=== PATIENT | female | born 1965 | race Caucasian/White ===

== ENCOUNTER 2018-05-10 17:39 | Inpatient (IN) ==
[2018-05-10] MEDS ORDERED: Naloxone 0.4 MG/ML INJ IVP PRN (20:16)
--- NOTE | 2018-05-10 20:40 | Internal Med History&Physical ---
<Delon Paul Marlonkristamyah - Last Filed: 05/10/18 20:32> Date of Encounter: 05/10/18 Time of Encounter: 20:32 Internal Medicine - H&P: HPI Chief complaint: abdominal pain Admitted From: Home Plans for Post Hospital Care: Home History of present illness: Ms. Warren is a 52 year old female presents with cc of abdominal pain/ bloating since January that is progressively worsening. Says in october she weighed 230 pounds and changed her diet to loose weight (she ate more fruit, vegetables and gave up fatty meals/oil). She started loosing weight but in January she started having bloating, abdominal pain and intermittent watery diarrhea with constipation. She now weights 180 pounds. She reports her stool are black. She denies fever, chills, rash, sick contacts, travel. She has a pet dog that is vaccinated. She denies hx of cancer. She has had a complete hysterectomy in 2000. She recently had a EGD done in march 2018 which showed evidence of gastritis. A colonoscopy was also planned but canceled due to poor prep. Patient had another colonoscopy planned for April. Past Med Surg Social Fam HX - Past Medical History Medical history: other (Chronic pelvic pain, chronic low back pain, endometriosis) Additional medical history: pelvic pain, lower back pain with lower limb dysesthesias, endometriosis, adenomyosis Psychiatric history: anxiety, depression - Past Surgical History Surgical History: hysterectomy Additional surgical history: Tubal ligation - Social History Smoking Status: Current every day smoker Smokeless Tobacco Status: No Alcohol use: none Drug use: none Current living situation: Home - Independent Activity Level: Independent ambulation - Family History Brother Hx Family Cancer: Yes (prostate) Sister Hx Family Endocrine Disorder: Yes (DM2) Internal Medicine - H&P: Meds BuPROPion SR (12 HR) [Wellbutrin SR] 150 mg PO BID 12/21/15 [History] Gabapentin [Gralise] 300 mg PO TID 09/07/17 [History] Oxycodone HCl [Oxycodone HCl ER] 15 mg PO BID 09/07/17 [History] Esomeprazole Magnesium [Nexium] 20 mg PO DAILY 05/10/18 [History] 3 Allergy/AdvReac Type Severity Reaction Status Date / Time steroid shot Allergy See Uncoded 05/10/18 15:54 Comments All Systems PM: A 10-system review of systems was performed and is negative for pertinent findings except as documented above in the HPI. Review of systems: Constitutional: Denies fever, chills HEENT: Denies headache, trauma, blurry vision, eye discharge, ear pain, ear discharge neck pain, sore throat, rhinorrhea Heart: Denies chest pain palpitations, LE edema Lungs: Denies shortness of breath cough Abdomen: Reports abdominal pain nausea vomiting diarrhea, constipation, black stool MSK: Denies back pain, falls, joint pain Kidney: Denies dysuria, hematuria Skin: Denies rash, ulcers, rash Neuro: Denies numbness and tingling Psych: Reports anxiety, Denies depression - Constitutional Vitals: Temp Pulse Resp BP Pulse Ox 98.1 F 96 15 123/88 97 05/10/18 19:15 05/10/18 19:15 05/10/18 19:15 05/10/18 19:15 05/10/18 19:15 Exam: General: pleasant, without distress HEENT: Head atraumatic, normocephalic, EOMI, PERRL, absent ear discharge or trauma, Moist Mucous Membranes, uvula midline Neck: nontender to palpation, absent lymphadenopathy, Cardiovascualr: Regular rate and rhythm with no murmur, absent gallops or rubs, absent pedal edema, radial pulses 2 out of 4 Lungs: Clear to auscultation bilaterally, not in respiratory distress Abdomen: Soft distendend, non tender to palpation. tenderness to precussion on LLL. +BS, Skin: warm and dry, absent rash, absent open wounds and nodules MSK: absent clubbing, cyanosis, joints without swelling Neuro: Cranial nerves II through XII intact, UE and LE sensation equal bilaterally, UE and LEstrength 5/5, alert oriented 3, Psych: good insight and judgment - Assessment and plan (1) Enteritis Current Visit: Yes Status: Acute Assessment and plan: Patient presents with abdominal pain and bloating since january Ct abdomen/pelvis: Diffuse bowel dilation and inflammatory changes However, the there is bowel anterior to the transverse colon and findings could be due to an internal hernia, ascites She is having intermittent diarrhea/consitpation black stool hgb 16, wbc 12.1 afebrile reports weight loss amylase lipase negative ast,ALT WNL plan: etiology can be infections, inflammatory, malignancy. GI consulted as patient will need colonoscopy for further evaluation. CEA ordered. Clear liquid diet. (2) Pleural effusion Current Visit: Yes Status: Acute Assessment and plan: as noted on CT scan left pleural effusion will need diagnostic thoracentesis consult IR. pleural fluid lab ordered. (3) Anxiety and depression Current Visit: Yes Status: Acute Assessment and plan: controlled continue home medication (4) DVT prophylaxis Current Visit: Yes Status: Acute Assessment and plan: heparin SQ - Time Spent With Patient Total time spent is greater than 50% in coordination of care (as documented) at patient's floor/unit and/or counseling patient: <HaydenMohit - Last Filed: 05/10/18 21:07> Date of Encounter: 05/10/18 Internal Medicine - H&P: HPI History of present illness: Ms. Warren is a 52 year old female All Systems PM: A 10-system review of systems was performed and is negative for pertinent findings except as documented above in the HPI. - Constitutional Vitals: Temp Pulse Resp BP Pulse Ox 98.1 F 96 15 123/88 97 05/10/18 19:15 05/10/18 19:15 05/10/18 19:15 05/10/18 19:15 05/10/18 19:15 - Assessment and plan (1) Pleural effusion Current Visit: Yes Status: Acute (2) Enteritis Current Visit: Yes Status: Acute (3) Anxiety and depression Current Visit: Yes Status: Acute (4) DVT prophylaxis Current Visit: Yes Status: Acute - Time Spent With Patient Total time spent is greater than 50% in coordination of care (as documented) at patient's floor/unit and/or counseling patient: - Attending Attestation Sangeetha Warren is a 52 year old woman who has otherwise been medically healthy stating that since January 2018 she has developed increasing abdominal distension, bloating, fatigue, anorexia, asthenia and weight loss. She also reports episodes of constipation intercalated with diarrhea, noticing the watery depositions to be almost black in color. She denies fever and chills. There was an attempted colonoscopy in the past but unsuccessful quality due to poor prep and she had an endoscopy with no significant findings. She is scheduled for another colonoscopy in 1 week. She presents now on transfer from outside hospital due to persistence and progression of the symptoms. Over there and IV contrast alone CT scan was done which showed a left pleural effusion and diffuse bowel dilation with inflammatory changes of unclear etiology and a possible internal hernia. On exam her vital signs are within normal limits however she is notably asthenic with pale skin and mucous membranes; diminished breath sounds in the left base with no rales or rhonchi; abdomen distended with shifting dullness, dullness to percussion on the lateral sides and tympanic on top, soft to palpation with no peritoneal reaction or masses palpated; unable to appreciate cervical, supraclavicular or inguinal lymphadenopathy. No leg edema. Given the chronicity of her symptoms this appears to be less infectious and more of an inflammatory (IBD) or possible malignant (colon cancer) process. She reports a long-standing history of smoking however there is no immediate family member history of cancer; her mother states that her own sister has breast cancer. Advise to have a diagnostic and therapeutic thoracentesis by IR with fluid studies sent for cytology, culture, cell count, pH, protein, glucose and pathology. We should consult GI for a colonoscopy as this would be the best diagnostic tool. No indication for antimicrobials at this time. In the interim we will check stool for occult blood and attempt to visualize microscopically if she has movement however for now she at appears to be more constipated than diarrheal. Also noted hemoconcentrated with a hemoglobin of 16 and hyponatremic at 132 and hypochloremic at 96; has received 1 L of NS however we will defer further fluid resuscitation due to the presence of ascites and pleural effusion. We will recheck lytes in the morning and supplement if needed. Rest of plan as documented by Dr. Paul.
[2018-05-10] MEDS: Gabapentin 300 MG CAPSULE PO SCH (22:27)
[2018-05-10] MEDS: *HR* Heparin 5,000 UNIT/ML VIAL SQ SCH (22:27)
[2018-05-10] MEDS: diazePAM 5 MG TABLET PO SCH (22:28)
[2018-05-10] MEDS: OXYCODONE Oral CONC 10 MG/0.5 ML ORAL.SYG SL PRN (22:28)
[2018-05-11 03:50] LABS: Basophils # 0.1 K/mcL (0.0-0.2); Basophils % 0.6 %; Eosinophils # 0.2 K/mcL (0.0-0.6); Eosinophils % 1.8 %; Hematocrit 42.8 % (35.3-44.9); Hemoglobin 14.8 g/dL (11.5-15.4); Immature Granulocytes % 1.5 % (0-4); Immature Platelets 7.6 % (1.1-6.1); Lymphocytes # 2.7 K/mcL (0.6-4.6); Lymphocytes % 31.8 %; Mean Corpuscular HGB Conc 34.6 g/dL (31.6-35.5); Mean Corpuscular Hemoglobin 29.9 pg (28.0-33.3); Mean Corpuscular Volume 86.5 fL (83.0-100.0); Mean Platelet Volume 10.8 fL (9.4-12.4); Monocytes # 1.1 K/mcL (0.0-1.3); Monocytes % 12.4 %; Neutrophils # 4.4 K/mcL (1.6-8.9); Platelet Count 278 K/mcL (140-400); Red Blood Count 4.95 M/mcL (3.82-4.97); Segmented Neutrophils % 51.9 %
[2018-05-11 04:12] LABS: BUN/Creatinine Ratio 19 (6-26); Blood Urea Nitrogen 13 mg/dL (6-20); Calcium 8.6 mg/dL (8.6-10.3); Carbon Dioxide 26 mEq/L (23-29); Chloride 100 mEq/L (98-107); Glucose 94 mg/dL (70-105); Lactate Dehydrogenase 126 Units/L (140-271); Osmolality,Calculated 278 (280-300); Potassium 3.2 mEq/L (3.5-5.1); Sodium 134 mEq/L (136-145); eGFR For Non-African Americans > 60 (> 60)
[2018-05-11] MEDS: *HR* Heparin 5,000 UNIT/ML VIAL SQ SCH ×3 (05:00→22:06)
[2018-05-11] MEDS: Gabapentin 300 MG CAPSULE PO SCH ×2 (08:30→15:04)
[2018-05-11] MEDS: diazePAM 5 MG TABLET PO SCH ×2 (08:30→15:04)
[2018-05-11] MEDS: OXYCODONE Oral CONC 10 MG/0.5 ML ORAL.SYG SL PRN ×3 (08:44→22:56)
--- NOTE | 2018-05-11 10:29 | IR Procedure Note ---
Date of procedure: 05/11/18 Consent Obtained: Written consent Timeout: Correct patient and procedure verified, Correct site verified, Time out performed, Skin prep completed Local anesthetic: Lidocaine 1% Indications: Left pleural effusion, abdominal pain. Procedure Performed: Left thoracentesis Was there an health information assistant present: No Site/Technique: Left sided thoracentesis. 8fr cath used. Results/Findings: Straw colored fluid. Still draining. Estimated blood loss (cc): 0 Complications: None; Tolerated procedure well Post Procedure Treatment Plan: Monitoring in pts room. Specimen: To lab
[2018-05-11 12:12] LABS: RBC,Pleural Fluid 0.005 M/mcL
[2018-05-11 12:30] LABS: Appearance of Pleural Fl Hazy (Clear)
[2018-05-11 12:46] LABS: Total Protein,Pleural Fluid 3.8 g/dL (No Ref Range)
[2018-05-11 13:49] LABS: Albumin 3.3 g/dL (3.5-5.7)
[2018-05-11] MEDS ORDERED: GI Cocktail 40 ML EACH PO ONE (14:17)
--- NOTE | 2018-05-11 14:18 | Internal Med Progress Note ---
<DavidAlfonso Silvestre - Last Filed: 05/11/18 17:39> Hospitalist Progress Note - Encounter Date of Encounter: 05/11/18 - Exam Vitals: Temp Pulse Resp BP Pulse Ox 98.2 F 93 16 107/73 95 05/11/18 14:57 05/11/18 14:57 05/11/18 14:57 05/11/18 14:57 05/11/18 14:57 - Assessment and Plan (1) C. difficile colitis Current Visit: Yes Status: Acute (2) Pleural effusion Current Visit: Yes Status: Acute (3) Enteritis Current Visit: Yes Status: Acute (4) Anxiety and depression Current Visit: Yes Status: Chronic (5) DVT prophylaxis Current Visit: Yes Status: Acute (6) Hypokalemia Current Visit: Yes Status: Acute Assessment and Plan: New today. Replace (7) Tobacco abuse Current Visit: Yes Status: Chronic Assessment and Plan: Cessation counselling - Time Spent with Patient Total time spent is greater than 50% in coordination of care (as documented) at patient's floor/unit and/or counseling patient: Internal Medicine: Result - Labs CBC & Chem 7: 05/11/18 03:41 05/11/18 03:41 Labs: Short CBC 05/11/18 Range/Units 03:41 WBC 8.6 (4.3-11.1) K/mcL Hgb 14.8 (11.5-15.4) g/dL Hct 42.8 (35.3-44.9) % Plt Count 278 (140-400) K/mcL Neutrophils # 4.4 (1.6-8.9) K/mcL BMP 05/11/18 03:41 Sodium 134 L Potassium 3.2 L Chloride 100 Carbon Dioxide 26 BUN 13 Creatinine 0.68 Glucose 94 Calcium 8.6 Liver Function 05/11/18 Range/Units 03:41 Albumin 3.3 L (3.5-5.7) g/dL - Impressions Impressions Thoracentesis 05/11/18 09:44 IMPRESSION: Successful ultrasound guided thoracentesis. D/ / Sean Joshi MD / Sean Joshi MD Interpreting Provider: Sean Joshi MD Chest X-Ray 05/11/18 10:27 IMPRESSION: No pneumothorax following thoracentesis. D/ / Jose Bhardwaj MD / Jose Bhardwaj MD Interpreting Provider: Jose Bhardwaj MD Consult Discharge Plan - Plan Referrals: Shae Russell, P[employer] MANAGER [Primary Care Provider] - - Attending Attestation I examined this patient and my medical decision-making was reviewed with the Resident Physician on 05/11/18. I agree with the documented findings, disposition and treatment plan as described except to the extent set forth below. Ms Warren is currently in observation for abdominal pain. She is positive for C diff. She is going to OR today. She remains moderate to high risk. Ms Warren is doing OK. She is to go to OR today. No fever or chills. C diff positive. Exam alert Comfortable Mucus membranes dry Heart not tachy Lungs diminished Abd no peritoneal signs I/P 1. C diff colitis 2. Abd pain Further diagnoses and plan as above. <Nicholas Edwards - Last Filed: 05/11/18 19:19> Hospitalist Progress Note - Encounter Date of Encounter: 05/11/18 Time of Encounter: 09:30 - Subjective Interval History: Ms. Warren is a 52-year-old female who was admitted to the hospital floor due to abdominal pain that has been going on for the last 2 months. Patient has been deliberately trying to lose weight since August and has lost close to 50 pounds in the last 7 months. Early in the January she was having early satiety, abdominal pain with distention but lately it has been multiple episodes of loose stools. Reports no systemic signs like fever, chills, chest pain or shortness of breath. Patient's GI panel was positive for C Diff . Her CT abdomen/pelvis showed diffuse bowel wall thickening, congestion of the mesentery , lots of free fluid and concerns for internal hernia. Patient is currently in the OR undergoing Exploratory Laparotomy. - Exam Vitals: Temp Pulse Resp BP Pulse Ox 98.1 F 94 14 106/75 97 05/11/18 10:30 05/11/18 10:30 05/11/18 10:30 05/11/18 10:30 05/11/18 10:30 Exam: General: pleasant, without distress HEENT: Head atraumatic, normocephalic, EOMI, PERRL, absent ear discharge or trauma, Moist Mucous Membranes, uvula midline Neck: nontender to palpation, absent lymphadenopathy, Cardiovascualr: Regular rate and rhythm with no murmur, absent gallops or rubs, absent pedal edema, radial pulses 2 out of 4 Lungs: Clear to auscultation bilaterally, not in respiratory distress Abdomen: Soft distendend, guarding or rebound tenderness. +BS, Skin: warm and dry, absent rash, absent open wounds and nodules MSK: absent clubbing, cyanosis, joints without swelling Neuro: Cranial nerves II through XII intact, UE and LE sensation equal bilaterally, UE and LEstrength 5/5, alert oriented 3, Psych: good insight and judgment - Assessment and Plan (1) Enteritis Current Visit: Yes Status: Acute Assessment and Plan: - Likely due to Clostridium difficile - on physical exam patient was distended, however no guarding or rebound tenderness. patients GI workup was negative for lipase and amyalse. Her LFTs were WNL. -Continue supportive care (2) Abdominal pain Current Visit: Yes Status: Acute Assessment and Plan: - Likely due to combination of enteritis and internal hernia found on CT scan. Patient's CEA being elevated one cannot rule out possibility of malignancy. Patient denies any recent camping or eating contaminated food. -NPO, IVF, plan is to take the patietn for Ex laporotomy - Continue to monitor. (3) Pleural effusion Current Visit: Yes Status: Acute Assessment and Plan: -likely due to malignancy, patient had an elevated CEA. M -Patient CT chest was positive for small residual pleural effusion on the left side. -She is status post thoracentesis. The pleural fluid is found to be exudative in nature. - Continue to monitor (4) Anxiety and depression Current Visit: Yes Status: Chronic Assessment and Plan: - Patient has a history of anxiety and depression. -Continue home medications. DVT Prophylaxis: heparin SQ - Time Spent with Patient Total time spent is greater than 50% in coordination of care (as documented) at patient's floor/unit and/or counseling patient: Internal Medicine: Result - Labs CBC & Chem 7: 05/11/18 03:41 05/11/18 03:41 Labs: Short CBC 05/11/18 Range/Units 03:41 WBC 8.6 (4.3-11.1) K/mcL Hgb 14.8 (11.5-15.4) g/dL Hct 42.8 (35.3-44.9) % Plt Count 278 (140-400) K/mcL Neutrophils # 4.4 (1.6-8.9) K/mcL BMP 05/11/18 03:41 Sodium 134 L Potassium 3.2 L Chloride 100 Carbon Dioxide 26 BUN 13 Creatinine 0.68 Glucose 94 Calcium 8.6 Liver Function 05/11/18 Range/Units 03:41 Albumin 3.3 L (3.5-5.7) g/dL - Impressions Impressions Thoracentesis 05/11/18 09:44 IMPRESSION: Successful ultrasound guided thoracentesis. D/ / Sean Joshi MD / Sean Joshi MD Interpreting Provider: Sean Joshi MD Chest X-Ray 05/11/18 10:27 IMPRESSION: No pneumothorax following thoracentesis. D/ / Jose Bhardwaj MD / Jose Bahrdwaj MD Interpreting Provider: Jose Bhardwaj MD <Nicholas Edwards - Last Filed: 05/11/18 19:19> (2) Abdominal pain Qualifiers: Abdominal location: generalized Qualified Code(s): R10.84 - Generalized abdominal pain
[2018-05-11 14:47] LABS: Adenovirus F 40/41 PCR Not detected (Not detect); Astrovirus PCR Not detected (Not detect); C.difficile Toxin A/B by PCR See reflex test (Not detect); Campylobacter by PCR Not detected (Not detect); Cryptosporidium by PCR Not detected (Not detect); Cyclospora cayetanensis PCR Not detected (Not detect); E. coli O157 by PCR Not detected (Not detect); Entamoeba histolytica PCR Not detected (Not detect); Enteroaggregative E.coli(EAEC) Not detected (Not detect); Enteropathogenic E.coli(EPEC) Not detected (Not detect); Enterotoxigenic E.coli (ETEC) Not detected (Not detect); Giardia lamblia PCR Not detected (Not detect); Norovirus GI/GII PCR Not detected (Not detect); Plesiomonas shigelloides PCR Not detected (Not detect); Rotavirus A PCR Not detected (Not detect); Salmonella PCR Not detected (Not detect); Sapovirus PCR Not detected (Not detect); Shig/EnteroinvasiveE coli EIEC Not detected (Not detect); Shigalike tox-prod E coli STEC Not detected (Not detect); Vibrio PCR Not detected (Not detect); Vibrio cholerae PCR Not detected (Not detect); Yersinia enterocolitica PCR Not detected (Not detect)
--- NOTE | 2018-05-11 15:20 | Anesthesia Evaluation PreOp ---
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: Other (ANXIETY, DEPRESSION, CHRONIC BACK PAIN, OPIOID TOLERANT) Other Medical History: GERD (GASTRITIS), Other (UNINTENDED 50 LB WEIGHT LOSS, BLOATING, , CHRONIC PELVIC PAIN, ENDOMETRIOSIS, HYPOKALEMIA) Anesthesia History: No Prior Anesthetic Complications, Past Anesthesia (HYST, BTL) Alcohol Use: none Drug use: none Medications and Allergies BuPROPion SR (12 HR) [Wellbutrin SR] 150 mg PO BID 12/21/15 [History] Esomeprazole Magnesium [Nexium] 20 mg PO DAILY 05/10/18 [History] Acetaminophen/Butalbital/Caffe [Fioricet] 1 tab PO TID PRN 05/11/18 [History] Gabapentin [Neurontin] 600 mg PO TID 05/11/18 [History] OxyCODONE Immed Rel [Roxicodone 15 MG] 15 mg PO Q8HR 05/11/18 [History] Quetiapine Fumarate [Seroquel] 50 mg PO HS 05/11/18 [History] Sucralfate [Carafate] 1 g PO BID 05/11/18 [History] diazePAM [Valium] 5 mg PO TID 05/11/18 [History] 3 Allergy/AdvReac Type Severity Reaction Status Date / Time steroid shot Allergy See Uncoded 05/10/18 15:54 Comments - Meds/Allergy Pre-op Review Medications Reviewed: Yes Allergies Reviewed: Yes Anesthesia Results - Labs 05/11/18 03:41 05/11/18 03:41 Calcium 8.6 mg/dL (8.6-10.3) 05/11/18 03:41 Magnesium 2.0 mg/dL (1.6-2.6) 05/11/18 03:41 Albumin 3.3 g/dL (3.5-5.7) L 05/11/18 03:41 Anesthesia Exam Vital Signs/O2 Sat, Most Current Temp Pulse Resp BP Pulse Ox 98.2 F 93 16 107/73 95 05/11/18 14:57 05/11/18 14:57 05/11/18 14:57 05/11/18 14:57 05/11/18 14:57 Height: 1.7 m Weight: 84 kg... BMI 29 NPO (# of Hours): 8 - HEENT Mallampati: II Teeth: Missing, Poor dentition Oral Opening: Greater than 3 - Cardiac Rhythm: Regular - Pulmonary Breath Sounds: bilateral Clear Respiratory Effort: Symmetrical Anesthesia Assess/Plan ASA Score: 4 Modified Denver Scale for Level of Consciousness: Cooperative, oriented, and tranquil Anesthetic Plan: General, Regional (TAP BLOCK FOR POST OPERATIVE PAIN) Monitoring Plan: Standard Monitors Recovery Plan: PACU Anes Supervising Prov Stmt: Active Medications Diazepam (Valium) 5 mg PO TID [facility] Stop: 11/09/18 21:01 Last Admin: 05/11/18 15:04 Dose: 5 mg Gabapentin (Neurontin) 600 mg PO TID [facility] Stop: 11/09/18 21:01 Last Admin: 05/11/18 15:04 Dose: 600 mg Heparin Sodium (Porcine) (Heparin) 5,000 unit SQ Q8HCO [facility] Stop: 11/09/18 22:01 Last Admin: 05/11/18 15:04 Dose: 5,000 unit Oxycodone HCl (Oxycodone Oral Conc) 5 mg SL Q6HR PRN; Protocol PRN Reason: Pain Stop: 11/09/18 20:24 Last Admin: 05/11/18 15:10 Dose: 5 mg Potassium Chloride (Potassium Chloride) 40 meq PO BID [facility] Stop: 05/12/18 09:01 Last Admin: 05/11/18 08:30 Dose: 40 meq Patient informed and consented. Risks, benefits, and alternatives discussed. Patient wishes to proceed.
[2018-05-11] MEDS ORDERED: *HR* Midazolam HCl 2 MG/2 ML VIAL ONE (15:22)
[2018-05-11] MEDS ORDERED: *HR* Propofol 200 MG/20 ML VIAL IVP ONE (15:22)
[2018-05-11] MEDS ORDERED: *HR* FentaNYL (PF) 100 MCG/2 ML VIAL ONE ×2 (15:22→17:00)
[2018-05-11] MEDS ORDERED: Lidocaine -MPF 4% 5 ML AMPUL ONE (15:22)
[2018-05-11] MEDS ORDERED: Lidocaine -MPF 2% 2 ML VIAL ONE (15:25)
[2018-05-11] MEDS ORDERED: *HR* Succinylcholine 200 MG/10 ML VIAL IVP ONE (15:25)
[2018-05-11] MEDS ORDERED: *HR* Rocuronium Bromide 50 MG/5 ML VIAL ONE ×2 (15:25→17:14)
--- NOTE | 2018-05-11 15:30 | General Surgery Consult Note ---
Date of Encounter: 05/11/18 Time of Encounter: 15:28 Assessment and Plan (1) Abdominal pain Current Visit: Yes Status: Acute 52F with worsening abdominal pain and distension with concern for internal hernia on CT scan; of note her CEA level is mildly elevated NPO IVF abx plan for OR for ex lap discussed with patient who is in agreement Qualifiers: Abdominal location: generalized Qualified Code(s): R10.84 - Generalized abdominal pain History of Present Illness Consult date: 05/11/18 Reason for consult: abdominal pain History of present illness: Ms. Warren is a 52 year old female h/o IBS who presents with a change in bowel habits. She has purposefully (and successfully) attempted to lose weight since August. However, in January she states that she began having early satiety, abdominal pain with distension. per the patient, her distension is worse. She does report having bowel function, but lately it is just loose stools. She states it is not tarry/dark nor frankly bloody. She was scheduled for a colonoscopy wiht me (after her first one was aborted due to inadequate prep), but has come to the hospital due to her worsening symptoms. No reports of fevers, chills, chest pain, nor shortness of breath. A CT scan was obtained which was reviwed and interpreted by me which demonstrates diffuse bowel wall thickening, congestion of the mesentery, lots of free fluid, left sided pleural effusion, and a transition point; The CT was reviewed and interpreted by me with radiology. Past Med Surg Social Fam HX - Past Medical History Medical history: other Additional medical history: pelvic pain, lower back pain with lower limb dysesthesias, endometriosis, adenomyosis Psychiatric history: anxiety, depression - Past Surgical History Surgical History: hysterectomy Additional surgical history: Tubal ligation - Social History Smoking Status: Current every day smoker Packs per day: 1 Smokeless Tobacco Status: No Alcohol use: none Drug use: none - Family History Brother Hx Family Cancer: Yes (prostate) Sister Hx Family Endocrine Disorder: Yes (DM2) Medications and Allergies BuPROPion SR (12 HR) [Wellbutrin SR] 150 mg PO BID 12/21/15 [History] Esomeprazole Magnesium [Nexium] 20 mg PO DAILY 05/10/18 [History] Acetaminophen/Butalbital/Caffe [Fioricet] 1 tab PO TID PRN 05/11/18 [History] Gabapentin [Neurontin] 600 mg PO TID 05/11/18 [History] OxyCODONE Immed Rel [Roxicodone 15 MG] 15 mg PO Q8HR 05/11/18 [History] Quetiapine Fumarate [Seroquel] 50 mg PO HS 05/11/18 [History] Sucralfate [Carafate] 1 g PO BID 05/11/18 [History] diazePAM [Valium] 5 mg PO TID 05/11/18 [History] 3 Allergy/AdvReac Type Severity Reaction Status Date / Time steroid shot Allergy See Uncoded 05/10/18 15:54 Comments Review of Systems All systems PM: 12 point ROS negative besides HPI findings General Surgery Exam Initial Vital Signs Temp Pulse Resp BP Pulse Ox 98.1 F 96 15 123/88 97 05/10/18 19:15 05/10/18 19:15 05/10/18 19:15 05/10/18 19:15 05/10/18 19:15 - General physical appearance no distress - Eyes normal ocular movement - ENT normocephalic, Other (poor dentition) - Neck no lymphadectomy - Respiratory normal expansion, normal respiratory effort - Cardiovascular Cardiovascular exam: Present: RRR - Abdomen Abdomen general surgery: Present: soft, distended, tender - Integumentary Integumentary general surgery: Present: warm and dry - Neurologic Present: CN 2-12 grossly intact - Musculoskeletal Present: normal posture - Psychiatric Psychiatric general surgery: Present: A&Ox3 Exam Initial Vital Signs Temp Pulse Resp BP Pulse Ox 98.1 F 96 15 123/88 97 05/10/18 19:15 05/10/18 19:15 05/10/18 19:15 05/10/18 19:15 05/10/18 19:15 Results - Labs 05/11/18 03:41 05/11/18 03:41 Abnormal lab results Immature Plt Fraction 7.6 % (1.1-6.1) H 05/11/18 03:41 Sodium 134 mEq/L (136-145) L 05/11/18 03:41 Potassium 3.2 mEq/L (3.5-5.1) L 05/11/18 03:41 POC Glucose 108 mg/dL (70-99) H 05/11/18 11:23 Calculated Osmolality 278 (280-300) L 05/11/18 03:41 Lactate Dehydrogenase 126 Units/L (140-271) L 05/11/18 03:41 Albumin 3.3 g/dL (3.5-5.7) L 05/11/18 03:41 Carcinoembryonic Ag 5.5 ng/mL (Less than 5.0) H 05/11/18 03:41 Pleural Appearance Hazy (Clear) A 05/11/18 10:20 Pleural RBC 0.005 M/mcL (0.000-0.002) H 05/11/18 10:20 Pleural Tot Nuc Cell 6416 TNC/mcL (0-1000) H 05/11/18 10:20 Stool Occult Blood Positive (Negative) A 05/11/18 13:10 Stl C. diff Tox A/B PCR See reflex test (Not detect) A 05/11/18 13:10 Diabetes panel 05/11/18 Range/Units 03:41 Sodium 134 L (136-145) mEq/L Potassium 3.2 L (3.5-5.1) mEq/L Chloride 100 (98-107) mEq/L Carbon Dioxide 26 (23-29) mEq/L BUN 13 (6-20) mg/dL Creatinine 0.68 (0.60-1.20) mg/dL Glucose 94 (70-105) mg/dL Calcium 8.6 (8.6-10.3) mg/dL Albumin 3.3 L (3.5-5.7) g/dL Calcium panel 05/11/18 Range/Units 03:41 Calcium 8.6 (8.6-10.3) mg/dL Albumin 3.3 L (3.5-5.7) g/dL Pituitary panel 05/11/18 Range/Units 03:41 Sodium 134 L (136-145) mEq/L Potassium 3.2 L (3.5-5.1) mEq/L Chloride 100 (98-107) mEq/L Carbon Dioxide 26 (23-29) mEq/L BUN 13 (6-20) mg/dL Creatinine 0.68 (0.60-1.20) mg/dL Glucose 94 (70-105) mg/dL Calcium 8.6 (8.6-10.3) mg/dL Adrenal panel 05/11/18 Range/Units 03:41 Sodium 134 L (136-145) mEq/L Potassium 3.2 L (3.5-5.1) mEq/L Chloride 100 (98-107) mEq/L Carbon Dioxide 26 (23-29) mEq/L BUN 13 (6-20) mg/dL Creatinine 0.68 (0.60-1.20) mg/dL Glucose 94 (70-105) mg/dL Calcium 8.6 (8.6-10.3) mg/dL Albumin 3.3 L (3.5-5.7) g/dL All other labs normal. - Imaging CT scan - abdomen: report reviewed, image reviewed CT scan - pelvis: report reviewed, image reviewed Consult Discharge Plan - Plan Referrals: Shae Russell, MIMI [Primary Care Provider] -
[2018-05-11] MEDS ORDERED: MetroNIDAZOLE 500 MG/100 ML 500 MG/100 ML BAG IVPB SCH ×2 (16:00→16:22)
[2018-05-11] MEDS ORDERED: Piperacillin/Tazobactam 3.375 GM in 0.9 % Sodium Chloride Mini Bag 100 ML IVPB SCH (16:00)
[2018-05-11] MEDS ORDERED: *HR* HYDROmorphone 2 MG/ML SYRINGE ONE (16:20)
[2018-05-11] MEDS ORDERED: Ondansetron 4 MG/2 ML VIAL ONE (17:09)
[2018-05-11] MEDS ORDERED: Dexamethasone 4 MG/ML VIAL ONE (17:09)
[2018-05-11] MEDS ORDERED: Acetaminophen IV 1,000 MG/100 ML INFUS..BTL IVPB ONE (17:39)
[2018-05-11] MEDS ORDERED: Albuterol 2.5 MG/3 ML NEBULIZER IH ONE ×2 (17:39→22:45)
[2018-05-11] MEDS ORDERED: *HR* Labetalol 20 MG/4 ML SYRINGE IVP PRN (17:39)
[2018-05-11] MEDS ORDERED: *HR* Promethazine 25 MG/ML VIAL IVP PRN (17:39)
[2018-05-11] MEDS ORDERED: ROPIVACAINE HCL/PF 0.5% 30 ML VIAL ONE (18:05)
[2018-05-11] MEDS ORDERED: Water for inj (bacteriostatic) 30 ML VIAL IV ONE (18:05)
[2018-05-11] MEDS ORDERED: Ketorolac 30 MG/ML VIAL ONE (18:06)
[2018-05-11] MEDS ORDERED: Neostigmine Methylsulfate 3 MG/3 ML SYRINGE ONE (18:06)
[2018-05-11] MEDS ORDERED: *HR* Morphine 10 MG/ML VIAL ONE (19:04)
--- NOTE | 2018-05-11 19:23 | Anesthesia Procedures ---
Date of Encounter: 05/11/18 Time of Encounter: 18:30 Procedures: Anesthesia - Nerve Block Procedure Date: 05/11/18 Time: 18:30 (IN OR, AT END OF SURGERY, BEFORE EMERGENCE) Surgical Procedure: EXP LAPAROTOMY Checklist: Correct Patient Identifier, Correct procedure Monitor Applied: EKG, BP, Pulse Oximetry Indication: Post Op Analgesia Block Type: Other (JOHNNIE TAP BLOCK) Sterile Technique: Yes Ultrasound used: Yes Anatomy identified: Yes Visual spread of Local: Yes Smooth Injection of Local: Yes Prep: Chlorhexadine Needle: 21 x 100 mm Stimuplex Local: Ropivacaine (0.25%) Volume (cc): 60 ML TOTAL Complications: None/effective block Comments: DIFFICULT NEEDLE VISUALIZATION ON THE LEFT SIDE. STIMUPLEX NEEDLE CHANGED TO PAJUNK, WITH BETTER VISUALIZATION. INCREMENTAL ASPIRATION AND INJECTION. I PERSONALLY PERFORMED THE PROCEDURE.
--- NOTE | 2018-05-11 20:25 | Anesthesia Evaluation Post Op ---
Date of Encounter: 05/11/18 Time of Encounter: 20:25 - Vital Signs Vital Signs: Vital Signs/O2 Sat, Most Current Temp Pulse Resp BP Pulse Ox 98 F 76 14 136/97 92 05/11/18 20:01 05/11/18 20:01 05/11/18 20:01 05/11/18 20:01 05/11/18 20:01 - Lungs Lungs: Clear Ascult./Percussion - Airway Airway: Non-obstructed - Cardiovascular Regular Rate - Mental Status Mental Status: Alert & Oriented, Answers Appropriately - Pain Pain Scale: 0 Pain Scale used: Numeric (1 - 10) - Nausea Vomiting Nausea Vomiting: Not Present - Hydration Hydration: NPO, Schroeder catheter - Discharge PostOp Status: Transfer Patient to floor
--- NOTE | 2018-05-11 21:02 | Operative Note ---
Date of procedure: 05/11/18 Pre-op diagnosis: small bowel obstruction Post-op diagnosis: same Procedure: exploratory laparotomy excisional biopsy of peritoneal wall lesion diverting loop ileostomy Implants: none Complications: none Anesthesia: GETA Local Anesthetics: 0.5% Sensorcaine HCL SubQ (cc) Surgeon: Matthew Jordan Was there an assistant professor of english present: Yes Anode Worker: Janell Johnson Estimated blood loss (cc): 75 Specimen: peritoneal lesions Condition: stable Disposition: PACU Procedure in Detail: the patient was brought into the operating room suite. Placed in the supine position. Mechanical DVT prophylaxis was placed. She underwent smooth induction of anesthesia. Prepped and draped in the usual fashion. Preoperative antibiotics were given. A time out was held identifying correct patient, pathology, procedure, and physician. I started with a midline incision. Upon entering the abdomen I encountered the efflux of serous/ascitic fluid. This was suctioned. As I entered the abdomen I did create a small injury in the small bowel, which I repaired with a Lembert suture. As I was preparing to place the bookwalter retractor, I noticed that the side wall wall felt unusual. I palpated the peritoneal surface along the Right side and noted that there were extensive lesions all along the right side. I noticed the same lesion along the left side of the abdominal wall along the peritoneal surface. I then noticed lesions along the liver too. I then took several biopsies of these right sided lesions using the debakey and the 15 blade lesion for excision. I ran the bowel beginning at the ligament of treitz. At the first pass, I noticed a lesion along the distal transverse colon that extended to the spleen. I did not attempt resection because it was stuck to the surrounding structures. In addition rest of the transverse colon was difficult to bring up for a colostomy as it appeared that the mesentery was shortened. At second pass I noticed that the majority of the bowel had small deposits of what appeared to be metastasis. The same was also in the mesentery. There were too many lesions to count. All along the colon antimesenteric surface as well along the descending colon to the rectum. I went back towards the ascending colon and noted a large lesion at the cecum that was the size of a tangerine. This was also difficult to mobilize. It was at this time that the decision was made to not plan for a resection. I decided to start at the cecum and selected a segment of small bowel that was most mobile and distal. I created a small circular incision along the right side of the abdomen, dissected down the fascia, created an incision, spared the muscle and made a second incision through the posterior fascia. I was able to slide two fingers through and, using the mimi instrument was able to pass the segment of bowel selected for the ostomy. I then closed the fascia using a PDS suture in a running fashion. I then used the vicryl suture to close the dermal layer and hollis to close the skin. I then placed sutures within the bowel wall of the small bowel used for the ostomy. I secured it with vicryl sutures at the 12, 3, and 9 o clock position. I then created an enterotomy and a brook ostomy. I secured the bowel circumferentially with the vicryl sutures and applied the ostomy. I then concluded the case and the patient transferred to PACu in stable condition.
[2018-05-11] MEDS ORDERED: Naloxone 0.4 MG/ML INJ IVP PRN (21:29)
[2018-05-11] MEDS ORDERED: D5% in 0.9% NACL 1,000 ML IVC ONE (21:39)
[2018-05-11] MEDS: D5% in 0.45% NACL w KCl 20 MEQ/1,000 ML MLS IVC SCH (22:03)
[2018-05-11] MEDS: MetroNIDAZOLE 500 MG/100 ML 500 MG/100 ML BAG IVPB SCH (23:45)
[2018-05-12] MEDS: OXYCODONE Oral CONC 10 MG/0.5 ML ORAL.SYG SL PRN (04:14)
[2018-05-12] MEDS: *HR* Heparin 5,000 UNIT/ML VIAL SQ SCH ×2 (06:34→15:09)
[2018-05-12] MEDS: Gabapentin 300 MG CAPSULE PO SCH ×3 (08:10→15:04)
[2018-05-12] MEDS: MetroNIDAZOLE 500 MG/100 ML 500 MG/100 ML BAG IVPB SCH ×2 (08:10→15:09)
[2018-05-12] MEDS: diazePAM 5 MG TABLET PO SCH ×3 (08:10→21:23)
[2018-05-12] MEDS ORDERED: Potassium Chloride 20 MEQ, Lidocaine 1% 2 ML in D5% in Water 250 ML IVPB ONE (09:17)
[2018-05-12] MEDS ORDERED: Chloraseptic Spray 177 ML BOTTLE MM PRN (09:22)
[2018-05-12] MEDS ORDERED: OXYCODONE Oral CONC 10 MG/0.5 ML ORAL.SYG SL ONE (10:06)
--- NOTE | 2018-05-12 10:06 | Internal Med Progress Note ---
<Nenita Anderson - Last Filed: 05/12/18 13:16> Hospitalist Progress Note - Encounter Date of Encounter: 05/12/18 Time of Encounter: 10:06 - Subjective Interval History: Patient seen and examined at bedside. She reports that her abdomen hurts still and that her nose is uncomfortable from NG tube. She denies fever, chills, shortness of breath. Denied bowel movement or flatus. - Exam Vitals: Temp Pulse Resp BP Pulse Ox 98.2 F 100 16 132/91 97 05/12/18 07:13 05/12/18 07:13 05/12/18 07:13 05/12/18 07:13 05/12/18 07:13 Exam: General: pleasant, without distress HEENT: Head atraumatic, normocephalic, Moist Mucous Membranes, uvula midline Neck: nontender to palpation, absent lymphadenopathy, Cardiovascualr: Regular rate and rhythm with no murmur, absent gallops or rubs, absent pedal edema Lungs: Clear to auscultation bilaterally, not in respiratory distress Abdomen: Soft distendend, teneder diffusely, no BS, Skin: warm and dry, absent rash, absent open wounds and nodules MSK: absent clubbing, cyanosis, joints without swelling Neuro: Cranial nerves II through XII intact, UE and LE sensation equal bilaterally, UE and LEstrength 5/5, alert oriented 3, Psych: good insight and judgment - Assessment and Plan (1) Abdominal pain Current Visit: Yes Status: Acute Assessment and Plan: 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 with melena and weight loss Ct abdomen/pelvis: Diffuse bowel dilation and inflammatory changes However, the there is bowel anterior to the transverse colon and findings could be due to an internal hernia, ascites CEA 5.5 s/p day 2 exploratory laparotomy with excisional biopsy of peritoneal wall and diverting loop ileostomy -surgery following -cytology pending -NG tube in place -NPO -pain control with oxycodone and dilaudid GENERAL DENTIST -oncology consulted -palliative care consulted (2) Pleural effusion Current Visit: Yes Status: Acute Assessment and Plan: Exudative pleural fluid on analysis. Concern for malignancy in setting of new peritoneal lesions found on laparotomy. Hx smoking. left pleural effusion seen on Ct s/p thoracentesis denies shortness of breath -oncology following (3) C. difficile colitis Current Visit: Yes Status: Acute Assessment and Plan: C. Diff positive based on GI panel. 1st episode of c.diff. has not been on abx recently -flagyl IV day 2 -continue contact pre-cautions (4) Anxiety and depression Current Visit: Yes Status: Chronic Assessment and Plan: hx anxiety taking valium continue home medication (5) Hypokalemia Current Visit: Yes Status: Acute Assessment and Plan: resolved (6) DVT prophylaxis Current Visit: Yes Status: Acute Assessment and Plan: heparin SQ (7) Tobacco abuse Current Visit: Yes Status: Chronic Assessment and Plan: Cessation counselling. - Time Spent with Patient Total time spent is greater than 50% in coordination of care (as documented) at patient's floor/unit and/or counseling patient: Internal Medicine: Result - Labs CBC & Chem 7: 05/11/18 03:41 05/12/18 09:41 Labs: BMP 05/11/18 03:41 Sodium 134 L Potassium 3.2 L Chloride 100 Carbon Dioxide 26 BUN 13 Creatinine 0.68 Glucose 94 Calcium 8.6 Liver Function 05/11/18 Range/Units 03:41 Albumin 3.3 L (3.5-5.7) g/dL - Impressions Impressions Thoracentesis 05/11/18 09:44 IMPRESSION: Successful ultrasound guided thoracentesis. D/ / Sean Joshi MD / Sean Joshi MD Interpreting Provider: Sean Joshi MD Chest X-Ray 05/11/18 10:27 IMPRESSION: No pneumothorax following thoracentesis. D/ / oJse Bhardwaj MD / Jose Bhardwaj MD Interpreting Provider: Jose Bhardwaj MD Consult Discharge Plan - Plan Referrals: Shae Russell, [employer] [Primary Care Provider] - <Alfonso Hernandez - Last Filed: 05/12/18 19:03> Hospitalist Progress Note - Encounter Date of Encounter: 05/12/18 - Exam Vitals: Temp Pulse Resp BP Pulse Ox 97.9 F 114 14 126/91 93 05/12/18 15:54 05/12/18 15:54 05/12/18 15:54 05/12/18 15:54 05/12/18 15:54 - Assessment and Plan (1) Pleural effusion Current Visit: Yes Status: Acute (2) Anxiety and depression Current Visit: Yes Status: Chronic (3) DVT prophylaxis Current Visit: Yes Status: Acute (4) Abdominal pain Current Visit: Yes Status: Acute (5) C. difficile colitis Current Visit: Yes Status: Acute (6) Hypokalemia Current Visit: Yes Status: Acute (7) Tobacco abuse Current Visit: Yes Status: Chronic (8) Colonic mass Current Visit: Yes Status: Acute Assessment and Plan: Pathology pending. - Time Spent with Patient Total time spent is greater than 50% in coordination of care (as documented) at patient's floor/unit and/or counseling patient: Internal Medicine: Result - Labs CBC & Chem 7: 05/11/18 03:41 05/12/18 09:41 Labs: BMP 05/12/18 09:41 Sodium 134 L Potassium 4.4 Chloride 102 Carbon Dioxide 23 BUN 15 Creatinine 0.68 Glucose 158 H Calcium 8.5 L - Attending Attestation I examined this patient and my medical decision-making was reviewed with the Resident Physician on 05/12/18. I agree with the documented findings, disposition and treatment plan as described except to the extent set forth below. Ms Warren is currently admitted for abd pain and has been found to have a metastatic cancer. Path pending. She remains moderate to high risk due to potential for worsening clinical status. Ms Warren is having pain. No fever or chills. Positive C diff. Emotionally distressed due to new diagnosis. Exam alert Mod distress due to pain. Mucus membranes dry Heart reg No wheeze abd no bowel sounds I/P 1. Colon mass with metastasis - path pending. 2. Pain - start GENERAL DENTIST Further diagnoses and plan as above. <Nenita Anderson - Last Filed: 05/12/18 13:16> (1) Abdominal pain Qualifiers: Abdominal location: generalized Qualified Code(s): R10.84 - Generalized abdominal pain <Alfonso Hernandez - Last Filed: 05/12/18 19:03> (4) Abdominal pain Qualifiers: Abdominal location: generalized Qualified Code(s): R10.84 - Generalized abdominal pain
[2018-05-12 10:41] LABS: BUN/Creatinine Ratio 22 (6-26); Blood Urea Nitrogen 15 mg/dL (6-20); Calcium 8.5 mg/dL (8.6-10.3); Carbon Dioxide 23 mEq/L (23-29); Chloride 102 mEq/L (98-107); Glucose 158 mg/dL (70-105); Osmolality,Calculated 282 (280-300); Potassium 4.4 mEq/L (3.5-5.1); Sodium 134 mEq/L (136-145); eGFR For Non-African Americans > 60 (> 60)
[2018-05-12] MEDS: D5% in 0.45% NACL w KCl 20 MEQ/1,000 ML MLS IVC SCH ×2 (11:31→20:32)
[2018-05-12] MEDS: Pantoprazole 40 MG VIAL IVP SCH (11:33)
[2018-05-12 12:01] LABS: Fluid Source for Triglycerides PLEURAL FLUID
[2018-05-12] MEDS: *HR* HYDROmorphone 20 MG/20 ML PCA IVC PRN (13:08)
[2018-05-13] MEDS: MetroNIDAZOLE 500 MG/100 ML 500 MG/100 ML BAG IVPB SCH ×3 (00:42→15:19)
[2018-05-13] MEDS: *HR* Heparin 5,000 UNIT/ML VIAL SQ SCH ×3 (00:43→15:19)
[2018-05-13 05:06] LABS: Basophils # 0.1 K/mcL (0.0-0.2); Basophils % 0.3 %; Hematocrit 39.5 % (35.3-44.9); Hemoglobin 13.3 g/dL (11.5-15.4); Immature Granulocytes % 0.6 % (0-4); Lymphocytes # 1.6 K/mcL (0.6-4.6); Lymphocytes % 10.1 %; Mean Corpuscular HGB Conc 33.7 g/dL (31.6-35.5); Mean Corpuscular Hemoglobin 28.9 pg (28.0-33.3); Mean Corpuscular Volume 85.9 fL (83.0-100.0); Mean Platelet Volume 11.6 fL (9.4-12.4); Monocytes # 1.9 K/mcL (0.0-1.3); Neutrophils # 12.2 K/mcL (1.6-8.9); Platelet Count 242 K/mcL (140-400); Red Cell Distribution Width 14.5 % (11.5-14.5)
[2018-05-13 05:28] LABS: BUN/Creatinine Ratio 22 (6-26); Blood Urea Nitrogen 11 mg/dL (6-20); Calcium 8.2 mg/dL (8.6-10.3); Carbon Dioxide 22 mEq/L (23-29); Chloride 104 mEq/L (98-107); Glucose 133 mg/dL (70-105); Osmolality,Calculated 275 (280-300); Potassium 4.4 mEq/L (3.5-5.1); Sodium 132 mEq/L (136-145); eGFR For Non-African Americans > 60 (> 60)
[2018-05-13] MEDS: D5% in 0.45% NACL w KCl 20 MEQ/1,000 ML MLS IVC SCH (06:27)
[2018-05-13] MEDS: Gabapentin 300 MG CAPSULE PO SCH ×3 (09:14→21:41)
[2018-05-13] MEDS: diazePAM 5 MG TABLET PO SCH ×3 (09:14→21:41)
[2018-05-13] MEDS: Pantoprazole 40 MG VIAL IVP SCH (09:15)
--- NOTE | 2018-05-13 12:21 | General Surgery Progress Note ---
Date of Encounter: 05/12/18 Time of Encounter: 12:00 - Assessment and Plan (1) Abdominal carcinomatosis Current Visit: Yes Status: Acute Will await pathology for definitive plan. Cont Ng for now. Subjective Patient reports: no flatus (Complains of the NG tube. ) Objective Vital Signs - Last 8 Hours Temp Pulse Resp BP Pulse Ox 05/13/18 10:44 98.3 F 106 16 135/92 95 05/13/18 06:46 99.0 F 106 14 144/96 95 Intake and Output 05/12/18 05/13/18 05/13/18 23:59 07:59 15:59 Intake Total 1362 / 1362 1100 / 1100 Output Total 300 / 300 250 / 250 Balance 1062 / 1062 850 / 850 Intake: IV Fluids 1362 / 1362 1100 / 1100 KCl 20mEq IN D5%-0.45 NACL 20 1000 / 1000 1000 / 1000 meq In 1,000 ml @ 100 mls/hr IVC .Q10H [facility] Rx#:[id number] Flagyl Premix 500 MG/100 ML 500 100 / 100 100 / 100 mg In 100 ml @ 100 mls/hr IVPB Q8HR [facility] Rx#:[id number] KCl 20 MEQ Xylocaine 2 ML In 262 / 262 Dextrose 5% 250 ML @ 131 mls/hr IVPB ONCE ONE Rx#:[id number] Oral 0 / 0 0 / 0 Output: Stool 0 / 0 0 / 0 Catheter 300 / 300 250 / 250 Gastric Drainage 0 / 0 Other: Meal NPO Weight 83 kg Blood Glucose* 137 140 Patient Weight 05/13/18 23:59 Weight 83 kg - General physical appearance moderate pain - Eyes normal ocular movement - ENT normal mucosa - Neck Neck exam: trachea midline - Respiratory normal respiratory effort - Cardiovascular Cardiovascular exam: Present: RRR - Abdomen Abdomen: Present: tender - Incision Incision: Present: clean and dry - Integumentary no rash - Neurologic CN 2-12 grossly intact, normal sensation (ileostomy with pink mucosa. No flatus or stools as of yet.) - Labs 05/13/18 04:15 05/13/18 04:15 Diabetes panel 05/13/18 Range/Units 04:15 Sodium 132 L (136-145) mEq/L Potassium 4.4 (3.5-5.1) mEq/L Chloride 104 (98-107) mEq/L Carbon Dioxide 22 L (23-29) mEq/L BUN 11 (6-20) mg/dL Creatinine 0.51 L (0.60-1.20) mg/dL Glucose 133 H (70-105) mg/dL Calcium 8.2 L (8.6-10.3) mg/dL Calcium panel 05/13/18 Range/Units 04:15 Calcium 8.2 L (8.6-10.3) mg/dL Pituitary panel 05/13/18 Range/Units 04:15 Sodium 132 L (136-145) mEq/L Potassium 4.4 (3.5-5.1) mEq/L Chloride 104 (98-107) mEq/L Carbon Dioxide 22 L (23-29) mEq/L BUN 11 (6-20) mg/dL Creatinine 0.51 L (0.60-1.20) mg/dL Glucose 133 H (70-105) mg/dL Calcium 8.2 L (8.6-10.3) mg/dL Adrenal panel 05/13/18 Range/Units 04:15 Sodium 132 L (136-145) mEq/L Potassium 4.4 (3.5-5.1) mEq/L Chloride 104 (98-107) mEq/L Carbon Dioxide 22 L (23-29) mEq/L BUN 11 (6-20) mg/dL Creatinine 0.51 L (0.60-1.20) mg/dL Glucose 133 H (70-105) mg/dL Calcium 8.2 L (8.6-10.3) mg/dL Consult Discharge Plan - Plan Referrals: Shea Russell, MIMI [Primary Care Provider] -
--- NOTE | 2018-05-13 12:26 | General Surgery Progress Note ---
Date of Encounter: 05/13/18 Time of Encounter: 12:24 - Assessment and Plan (1) Abdominal carcinomatosis Current Visit: Yes Status: Acute Will await pathology for definitive plan. Cont Ng for now. Need to mobilize to a chair TID Subjective Patient reports: still having pain, no flatus Objective Vital Signs - Last 8 Hours Temp Pulse Resp BP Pulse Ox 05/13/18 10:44 98.3 F 106 16 135/92 95 05/13/18 06:46 99.0 F 106 14 144/96 95 Intake and Output 05/12/18 05/13/18 05/13/18 23:59 07:59 15:59 Intake Total 1362 / 1362 1100 / 1100 Output Total 300 / 300 250 / 250 Balance 1062 / 1062 850 / 850 Intake: IV Fluids 1362 / 1362 1100 / 1100 KCl 20mEq IN D5%-0.45 NACL 20 1000 / 1000 1000 / 1000 meq In 1,000 ml @ 100 mls/hr IVC .Q10H [facility] Rx#:[id number] Flagyl Premix 500 MG/100 ML 500 100 / 100 100 / 100 mg In 100 ml @ 100 mls/hr IVPB Q8HR [facility] Rx#:[id number] KCl 20 MEQ Xylocaine 2 ML In 262 / 262 Dextrose 5% 250 ML @ 131 mls/hr IVPB ONCE ONE Rx#:[id number] Oral 0 / 0 0 / 0 Output: Stool 0 / 0 0 / 0 Catheter 300 / 300 250 / 250 Gastric Drainage 0 / 0 Other: Meal NPO Weight 83 kg Blood Glucose* 137 140 Patient Weight 05/13/18 23:59 Weight 83 kg - General physical appearance well developed, moderate pain - Eyes PERRL - ENT normal mucosa - Neck Neck exam: trachea midline - Respiratory normal expansion, normal respiratory effort - Cardiovascular Cardiovascular exam: Present: RRR - Abdomen Abdomen: Present: tender - Incision Incision: Present: clean and dry - Labs 05/13/18 04:15 05/13/18 04:15 Diabetes panel 05/13/18 Range/Units 04:15 Sodium 132 L (136-145) mEq/L Potassium 4.4 (3.5-5.1) mEq/L Chloride 104 (98-107) mEq/L Carbon Dioxide 22 L (23-29) mEq/L BUN 11 (6-20) mg/dL Creatinine 0.51 L (0.60-1.20) mg/dL Glucose 133 H (70-105) mg/dL Calcium 8.2 L (8.6-10.3) mg/dL Calcium panel 05/13/18 Range/Units 04:15 Calcium 8.2 L (8.6-10.3) mg/dL Pituitary panel 05/13/18 Range/Units 04:15 Sodium 132 L (136-145) mEq/L Potassium 4.4 (3.5-5.1) mEq/L Chloride 104 (98-107) mEq/L Carbon Dioxide 22 L (23-29) mEq/L BUN 11 (6-20) mg/dL Creatinine 0.51 L (0.60-1.20) mg/dL Glucose 133 H (70-105) mg/dL Calcium 8.2 L (8.6-10.3) mg/dL Adrenal panel 05/13/18 Range/Units 04:15 Sodium 132 L (136-145) mEq/L Potassium 4.4 (3.5-5.1) mEq/L Chloride 104 (98-107) mEq/L Carbon Dioxide 22 L (23-29) mEq/L BUN 11 (6-20) mg/dL Creatinine 0.51 L (0.60-1.20) mg/dL Glucose 133 H (70-105) mg/dL Calcium 8.2 L (8.6-10.3) mg/dL Consult Discharge Plan - Plan Referrals: Shae Russell, MIMI [Primary Care Provider] -
--- NOTE | 2018-05-13 12:39 | Internal Med Progress Note ---
<Nenita Anderson - Last Filed: 05/13/18 12:36> Hospitalist Progress Note - Encounter Date of Encounter: 05/13/18 Time of Encounter: 12:00 - Subjective Interval History: Patient seen and examined at bedside. She reports that her abdominal pain is well controlled. She denies fever, chills, shortness of breath. Denied bowel movement or flatus. She has been up walking the halls. - Exam Vitals: Temp Pulse Resp BP Pulse Ox 98.3 F 106 16 135/92 95 05/13/18 10:44 05/13/18 10:44 05/13/18 10:44 05/13/18 10:44 05/13/18 10:44 Exam: General: pleasant, without distress HEENT: Head atraumatic, normocephalic, Moist Mucous Membranes, uvula midline Neck: nontender to palpation, absent lymphadenopathy, Cardiovascualr: Regular rate and rhythm with no murmur, absent gallops or rubs, absent pedal edema Lungs: Clear to auscultation bilaterally, not in respiratory distress Abdomen: Soft distendend, teneder diffusely, no BS, Skin: warm and dry, absent rash, absent open wounds and nodules MSK: absent clubbing, cyanosis, joints without swelling Neuro: Cranial nerves II through XII intact, UE and LE sensation equal bilaterally, UE and LEstrength 5/5, alert oriented 3, Psych: good insight and judgment - Assessment and Plan (1) Pleural effusion Current Visit: Yes Status: Acute Assessment and Plan: Exudative pleural fluid on analysis. Concern for malignancy in setting of new peritoneal lesions found on laparotomy. Hx smoking. 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 with melena and weight loss Ct abdomen/pelvis: Diffuse bowel dilation and inflammatory changes However, the there is bowel anterior to the transverse colon and findings could be due to an internal hernia, ascites CEA 5.5 s/p day 3 exploratory laparotomy with excisional biopsy of peritoneal wall and diverting loop ileostomy -surgery following -cytology pending -NG tube in place -NPO -pain control with oxycodone and dilaudid ELECTRICAL HIGH TENSION TESTER -oncology consulted -palliative care consulted (3) C. difficile colitis Current Visit: Yes Status: Acute Assessment and Plan: C. Diff positive based on GI panel. 1st episode of c.diff. has not been on abx recently -flagyl IV day 3 -continue contact pre-cautions (4) Hypokalemia Current Visit: Yes Status: Acute Assessment and Plan: resolved (5) Tobacco abuse Current Visit: Yes Status: Chronic Assessment and Plan: Cessation counselling. (6) Anxiety and depression Current Visit: Yes Status: Chronic Assessment and Plan: hx anxiety taking valium continue home medication (7) DVT prophylaxis Current Visit: Yes Status: Acute Assessment and Plan: heparin SQ (8) Colonic mass Current Visit: Yes Status: Acute Assessment and Plan: Pathology pending. - Time Spent with Patient Total time spent is greater than 50% in coordination of care (as documented) at patient's floor/unit and/or counseling patient: Internal Medicine: Result - Labs CBC & Chem 7: 05/13/18 04:15 05/13/18 04:15 Labs: Short CBC 05/13/18 Range/Units 04:15 WBC 15.8 H D (4.3-11.1) K/mcL Hgb 13.3 D (11.5-15.4) g/dL Hct 39.5 (35.3-44.9) % Plt Count 242 (140-400) K/mcL Neutrophils # 12.2 H (1.6-8.9) K/mcL BMP 05/13/18 04:15 Sodium 132 L Potassium 4.4 Chloride 104 Carbon Dioxide 22 L BUN 11 Creatinine 0.51 L Glucose 133 H Calcium 8.2 L Consult Discharge Plan - Plan Referrals: Shae Russell, SHUTTLE OPERATOR [Primary Care Provider] - <Alfonso Hernandez - Last Filed: 05/13/18 16:41> Hospitalist Progress Note - Encounter Date of Encounter: 05/13/18 - Exam Vitals: Temp Pulse Resp BP Pulse Ox 98.3 F 105 15 123/82 96 05/13/18 14:56 05/13/18 14:56 05/13/18 14:56 05/13/18 14:56 05/13/18 14:56 - Assessment and Plan (1) Pleural effusion Current Visit: Yes Status: Acute (2) Anxiety and depression Current Visit: Yes Status: Chronic (3) DVT prophylaxis Current Visit: Yes Status: Acute (4) Abdominal pain Current Visit: Yes Status: Acute (5) C. difficile colitis Current Visit: Yes Status: Acute (6) Hypokalemia Current Visit: Yes Status: Acute (7) Tobacco abuse Current Visit: Yes Status: Chronic (8) Colonic mass Current Visit: Yes Status: Acute - Time Spent with Patient Total time spent is greater than 50% in coordination of care (as documented) at patient's floor/unit and/or counseling patient: Internal Medicine: Result - Labs CBC & Chem 7: 05/13/18 04:15 05/13/18 04:15 Labs: Short CBC 05/13/18 Range/Units 04:15 WBC 15.8 H D (4.3-11.1) K/mcL Hgb 13.3 D (11.5-15.4) g/dL Hct 39.5 (35.3-44.9) % Plt Count 242 (140-400) K/mcL Neutrophils # 12.2 H (1.6-8.9) K/mcL BMP 05/13/18 04:15 Sodium 132 L Potassium 4.4 Chloride 104 Carbon Dioxide 22 L BUN 11 Creatinine 0.51 L Glucose 133 H Calcium 8.2 L - Attending Attestation I examined this patient and my medical decision-making was reviewed with the Resident Physician on 05/13/18. I agree with the documented findings, disposition and treatment plan as described except to the extent set forth below. Ms Warren is currently admitted for colon mass and pleural effusion. She remains moderate to high risk due potential for worsening clinical status. Ms Warren has been up walking and sitting in chair. Pain is controlled with ELECTRICAL HIGH TENSION TESTER. Had low grade fever last night but none now. No CP or SOB. Exam alert Comfortable up in chair. Mucus membranes dry Heart reg and not tachy Lungs clear Scant bowel sounds No edema I/P 1. Colon mass 2. C diff 3. Pleural effusion Further diagnoses and plan as above. <Nenita Anderson - Last Filed: 05/13/18 12:36> (2) Abdominal pain Qualifiers: Abdominal location: generalized Qualified Code(s): R10.84 - Generalized abdominal pain <Alfonso Hernandez - Last Filed: 05/13/18 16:41> (4) Abdominal pain Qualifiers: Abdominal location: generalized Qualified Code(s): R10.84 - Generalized abdominal pain
[2018-05-13] MEDS ORDERED: 0.9 % Sodium Chloride 500 ML IVC ONE (17:21)
[2018-05-13] MEDS ORDERED: 0.9 % Sodium Chloride 500 ML ONE (17:23)
[2018-05-14] MEDS: MetroNIDAZOLE 500 MG/100 ML 500 MG/100 ML BAG IVPB SCH ×3 (01:00→15:45)
[2018-05-14] MEDS: *HR* Heparin 5,000 UNIT/ML VIAL SQ SCH ×3 (01:03→15:46)
[2018-05-14] MEDS: D5% in 0.45% NACL w KCl 20 MEQ/1,000 ML MLS IVC SCH ×5 (05:06→15:45)
[2018-05-14 05:15] LABS: Basophils % 0.2 %; Eosinophils % 0.2 %; Hematocrit 37.8 % (35.3-44.9); Hemoglobin 12.8 g/dL (11.5-15.4); Immature Granulocytes % 0.4 % (0-4); Lymphocytes # 1.5 K/mcL (0.6-4.6); Lymphocytes % 11.3 %; Mean Corpuscular HGB Conc 33.9 g/dL (31.6-35.5); Mean Corpuscular Hemoglobin 29.2 pg (28.0-33.3); Mean Corpuscular Volume 86.3 fL (83.0-100.0); Mean Platelet Volume 11.8 fL (9.4-12.4); Monocytes # 1.3 K/mcL (0.0-1.3); Neutrophils # 10.4 K/mcL (1.6-8.9); Platelet Count 219 K/mcL (140-400); Red Blood Count 4.38 M/mcL (3.82-4.97); Red Cell Distribution Width 14.6 % (11.5-14.5); Segmented Neutrophils % 77.9 %
[2018-05-14 05:31] LABS: BUN/Creatinine Ratio 23 (6-26); Blood Urea Nitrogen 10 mg/dL (6-20); Calcium 8.6 mg/dL (8.6-10.3); Carbon Dioxide 23 mEq/L (23-29); Chloride 102 mEq/L (98-107); Glucose 125 mg/dL (70-105); Osmolality,Calculated 273 (280-300); Potassium 4.2 mEq/L (3.5-5.1); Sodium 131 mEq/L (136-145); eGFR For Non-African Americans > 60 (> 60)
[2018-05-14 08:21] LABS: Triglycerides,Body Fluid 34 mg/dL
[2018-05-14 08:32] LABS: Alanine Aminotransferase 7 Units/L (7-52); Albumin 2.9 g/dL (3.5-5.7); Albumin/Globulin Ratio 1.2 (1.1-2.2); Alkaline Phosphatase 50 Units/L (34-104); Aspartate Amino Transferase 11 Units/L (13-39); Bilirubin,Direct 0.1 mg/dL (0.0-0.2); Bilirubin,Indirect 0.3 mg/dL (0.0-1.2); Bilirubin,Total 0.4 mg/dL (0.3-1.0); Globulin 2.5 g/dL (2.4-3.5); Total Protein 5.4 g/dL (6.4-8.9)
--- NOTE | 2018-05-14 08:37 | General Surgery Progress Note ---
<Artur Danielle R - Last Filed: 05/14/18 08:35> Date of Encounter: 05/14/18 Time of Encounter: 07:15 - Assessment and Plan (1) Abdominal carcinomatosis Current Visit: Yes Status: Acute POD #3 s/p 1. exploratory laparotomy 2. excisional biopsy peritoneal wall lesion 3. diverting loop ileostomy with Dr. Jordan 05/11/2018 Post operative pain controlled with COVER REMOVER Liquid stool in colostomy bag Plan: NPO ice chips and popsicles okay NG to LIWS, awaiting return of bowel function Comfort care and pain management, continue hydromorphone COVER REMOVER Ambulation TID with assistance Incentive spirometry PPI/dvt prophylaxis Oncology consulted Palliative consulted Wound care consulted Daily wound care and colostomy management Surgical specimen pathology pending (2) C. difficile colitis Current Visit: Yes Status: Acute Continue metronidazole (3) DVT prophylaxis Current Visit: Yes Status: Acute Heparin SQ 5000 units Q8H Ambulation TID Subjective Patient reports: no new complaints, pain is less, voiding w/o difficulty, flatus , bowel movement (colostomy), afebrile Objective Vital Signs - Last 8 Hours Temp Pulse Resp BP Pulse Ox 05/14/18 08:33 98.6 F 99 18 124/85 95 05/14/18 05:12 97.5 F L 62 15 119/71 98 05/14/18 00:52 100.1 F H 108 16 139/90 95 Intake and Output 05/13/18 05/14/18 05/14/18 23:59 07:59 15:59 Intake Total 100 / 100 1340 / 1340 Output Total 75 / 75 1750 / 1750 0 / 0 Balance 25 / 25 -410 / -410 0 / 0 Intake: IV Fluids 100 / 100 1100 / 1100 KCl 20mEq IN D5%-0.45 NACL 20 1000 / 1000 meq In 1,000 ml @ 100 mls/hr IVC .Q10H DAO Rx#:[id number] Flagyl Premix 500 MG/100 ML 500 100 / 100 100 / 100 mg In 100 ml @ 100 mls/hr IVPB Q8HR DAO Rx#:[id number] Oral 0 / 0 240 / 240 Output: Urine 0 / 0 300 / 300 Catheter 0 / 0 Gastric Drainage 75 / 75 1450 / 1450 Other: Meal Dinner NPO Blood Glucose* 115 113 - General physical appearance no distress - Eyes PERRL, normal ocular movement - ENT normal mucosa, atraumatic, normocephalic - Neck Neck exam: trachea midline - Respiratory normal expansion, normal respiratory effort - Cardiovascular Cardiovascular exam: Present: RRR - Abdomen Abdomen: Present: soft, tender (expected post surgical tenderness), wound ( colostomy is pink, liquid stool and air in the bag). Absent: distended, guarding - Incision Incision: Present: clean and dry, intact - Integumentary no rash - Neurologic CN 2-12 grossly intact - Musculoskeletal normal posture - Psychiatric oriented to time, oriented to person, oriented to place, speech is normal, memory intact - Labs 05/14/18 04:18 05/14/18 04:18 Diabetes panel 05/14/18 Range/Units 04:18 Sodium 131 L (136-145) mEq/L Potassium 4.2 (3.5-5.1) mEq/L Chloride 102 (98-107) mEq/L Carbon Dioxide 23 (23-29) mEq/L BUN 10 (6-20) mg/dL Creatinine 0.44 L (0.60-1.20) mg/dL Glucose 125 H (70-105) mg/dL Calcium 8.6 (8.6-10.3) mg/dL AST 11 L (13-39) Units/L ALT 7 (7-52) Units/L Alkaline Phosphatase 50 (34-104) Units/L Albumin 2.9 L (3.5-5.7) g/dL Calcium panel 05/14/18 Range/Units 04:18 Calcium 8.6 (8.6-10.3) mg/dL Albumin 2.9 L (3.5-5.7) g/dL Pituitary panel 05/14/18 Range/Units 04:18 Sodium 131 L (136-145) mEq/L Potassium 4.2 (3.5-5.1) mEq/L Chloride 102 (98-107) mEq/L Carbon Dioxide 23 (23-29) mEq/L BUN 10 (6-20) mg/dL Creatinine 0.44 L (0.60-1.20) mg/dL Glucose 125 H (70-105) mg/dL Calcium 8.6 (8.6-10.3) mg/dL Adrenal panel 05/14/18 Range/Units 04:18 Sodium 131 L (136-145) mEq/L Potassium 4.2 (3.5-5.1) mEq/L Chloride 102 (98-107) mEq/L Carbon Dioxide 23 (23-29) mEq/L BUN 10 (6-20) mg/dL Creatinine 0.44 L (0.60-1.20) mg/dL Glucose 125 H (70-105) mg/dL Calcium 8.6 (8.6-10.3) mg/dL Total Bilirubin 0.4 (0.3-1.0) mg/dL AST 11 L (13-39) Units/L ALT 7 (7-52) Units/L Alkaline Phosphatase 50 (34-104) Units/L Albumin 2.9 L (3.5-5.7) g/dL Consult Discharge Plan - Plan Referrals: Shae Russell, SECURITY LEAD [Primary Care Provider] - <Matthew Jordan - Last Filed: 05/15/18 07:39> Date of Encounter: 05/14/18 - Assessment and Plan (1) Abdominal pain Current Visit: Yes Status: Acute Qualifiers: Qualified Code(s): R10.84 - Generalized abdominal pain Objective Vital Signs - Last 8 Hours Temp Pulse Resp BP Pulse Ox 05/15/18 04:57 98.1 F 107 16 113/78 94 05/14/18 23:54 99.6 F 108 18 118/83 94 Intake and Output 05/14/18 05/14/18 05/15/18 15:59 23:59 07:59 Intake Total 1100 / 1100 800 / 800 1100 / 1100 Output Total 1450 / 1450 1000 / 1000 525 / 525 Balance -350 / -350 -200 / -200 575 / 575 Intake: IV Fluids 1100 / 1100 800 / 800 1100 / 1100 KCl 20mEq IN D5%-0.45 NACL 20 1000 / 1000 1000 / 1000 meq In 1,000 ml @ 100 mls/hr IVC .Q10H DAO Rx#:[id number] Flagyl Premix 500 MG/100 ML 500 100 / 100 100 / 100 100 / 100 mg In 100 ml @ 100 mls/hr IVPB Q8HR DAO Rx#:[id number] Oral 0 / 0 0 / 0 0 / 0 Output: Stool 1100 / 1100 200 / 200 0 / 0 Catheter 0 / 0 250 / 250 225 / 225 Gastric Drainage 350 / 350 550 / 550 300 / 300 Other: Meal NPO LUNCH NPO DINNER Percent of Meal Consumed 0% Weight 84.4 kg Blood Glucose* 146 127 Patient Weight 05/15/18 23:59 Weight 84.4 kg - Labs 05/15/18 04:08 05/15/18 04:08 Diabetes panel 05/14/18 05/15/18 Range/Units 04:18 04:08 Sodium 131 L 132 L (136-145) mEq/L Potassium 4.2 4.3 (3.5-5.1) mEq/L Chloride 102 102 (98-107) mEq/L Carbon Dioxide 23 25 (23-29) mEq/L BUN 10 11 (6-20) mg/dL Creatinine 0.44 L 0.50 L (0.60-1.20) mg/dL Glucose 125 H 127 H (70-105) mg/dL Calcium 8.6 8.5 L (8.6-10.3) mg/dL AST 11 L (13-39) Units/L ALT 7 (7-52) Units/L Alkaline Phosphatase 50 (34-104) Units/L Albumin 2.9 L (3.5-5.7) g/dL Calcium panel 05/14/18 05/15/18 Range/Units 04:18 04:08 Calcium 8.6 8.5 L (8.6-10.3) mg/dL Phosphorus 3.3 (2.7-4.5) mg/dL Albumin 2.9 L (3.5-5.7) g/dL Pituitary panel 05/14/18 05/15/18 Range/Units 04:18 04:08 Sodium 131 L 132 L (136-145) mEq/L Potassium 4.2 4.3 (3.5-5.1) mEq/L Chloride 102 102 (98-107) mEq/L Carbon Dioxide 23 25 (23-29) mEq/L BUN 10 11 (6-20) mg/dL Creatinine 0.44 L 0.50 L (0.60-1.20) mg/dL Glucose 125 H 127 H (70-105) mg/dL Calcium 8.6 8.5 L (8.6-10.3) mg/dL Adrenal panel 05/14/18 05/15/18 Range/Units 04:18 04:08 Sodium 131 L 132 L (136-145) mEq/L Potassium 4.2 4.3 (3.5-5.1) mEq/L Chloride 102 102 (98-107) mEq/L Carbon Dioxide 23 25 (23-29) mEq/L BUN 10 11 (6-20) mg/dL Creatinine 0.44 L 0.50 L (0.60-1.20) mg/dL Glucose 125 H 127 H (70-105) mg/dL Calcium 8.6 8.5 L (8.6-10.3) mg/dL Total Bilirubin 0.4 (0.3-1.0) mg/dL AST 11 L (13-39) Units/L ALT 7 (7-52) Units/L Alkaline Phosphatase 50 (34-104) Units/L Albumin 2.9 L (3.5-5.7) g/dL - Attending Attestation patient seen and examined. i have reviewed all pertinent labs, imaging, and notes. i agree with the above assessment and plan and wish to add the following... patient with low NG tube output, good UOP, starting to have bowel function from ileostomy; due to extensive disease, was only able to bring a loop of small bowel up, likely will have high output ileostomy due to limited options for ileostomy (unable to use terminal ileum) awaiting pathology results awaiting palliative care and oncology recommendations possible d/c NG on 05/15
[2018-05-14] MEDS: Gabapentin 300 MG CAPSULE PO SCH ×4 (09:30→20:33)
[2018-05-14] MEDS: Pantoprazole 40 MG VIAL IVP SCH (09:32)
[2018-05-14] MEDS: diazePAM 5 MG TABLET PO SCH ×4 (09:32→20:32)
--- NOTE | 2018-05-14 09:54 | Palliative - Consult Note ---
Date of Encounter: 05/14/18 Time of Encounter: 09:00 - Assessment and Plan (1) Anxiety and depression Current Visit: Yes Status: Chronic Assessment and plan: Patient reports anxiety is under control with scheduled Valium. Continue Valium as scheduled. (2) Abdominal pain Current Visit: Yes Status: Acute Assessment and plan: Patient reports abdominal pain is under control. Continue BOAT CLEANING SUPERVISOR Dilaudid at this time. Qualifiers: Abdominal location: generalized Qualified Code(s): R10.84 - Generalized abdominal pain (3) Abdominal carcinomatosis Current Visit: Yes Status: Acute Assessment and plan: Oncology consulted. Pathology pending. (4) Goals of care, counseling/discussion Current Visit: Yes Status: Acute Assessment and plan: Briefly reviewed current goals of care. Patient desires to see her options with Oncology for treatment. Awaiting pathology to make decisions. Reports family is well educated and will required full aggressive treatment. Patient reported if no treatment option available through [facility] will go "north." Patient to remain FULL CODE and have FULL aggressive treatment for cancer at this time. Palliative care will follow up tomorrow. (5) Back pain Current Visit: Yes Status: Chronic Assessment and plan: Patient reports back pain 5/10, chronic, stable, ache, lying in bed makes worse , and BOAT CLEANING SUPERVISOR dilaudid helping. Continue BOAT CLEANING SUPERVISOR Dilaudid at this time. May consider transitioning back to PO pain medication tomorrow; patient agreeable. Qualifiers: Back pain location: back pain in unspecified location Chronicity: chronic Back pain laterality: unspecified Qualified Code(s): M54.9 - Dorsalgia, unspecified; G89.29 - Other chronic pain Palliative-CN HPI - Data of Consult Patient: new to practice Consult date: 05/11/18 Requesting Physician: Alfonso Hernandez DO Primary Care Provider: Shae Russell CNP - Consult Narrative Palliative Care/Comfort Measures: Palliative care Reason for consult: Stage 4 cancer History of present illness: Ms. Warren is a 52 year old female Arrived to [facility] with complaints of abdominal pain and bloating since January, progressively worsening. Patient altered diet in January and has lost 50 pounds. Stools are reported as black. Patient reported initial symptoms were bloating, abdominal pain, intermittent diarrhea, and constipation. EGD performed in March; showed gastritis. Patient had colonoscopy planned due to poor prep; had another colonoscopy planned for April. PMH: Chronic pelvic/back pain, endometriosis, lower back pain with lower limb dysesthesias, anxiety, depression, and adenomyosis. Ultrasound guided thoracentesis performed with 575 ml of pleural fluid removed. X-ray performed confirming no pneumothorax following thoracentesis. Patient admitted and medically managed for C. difficile colitis, pleural effusion, enteritis, anxiety, depression, and hypokalemia. Surgery consulted for worsening abdominal pain and distension with concern for internal hernia on CT Scan; CEA level mildly elevated. Surgical procedure: Exploratory laparotomy, excisional biopsy of peritoneal wall lesion, and diverting loop ileostomy. According to surgical note, midline incision performed with serous/ascitic fluid unusual lesions noted to wall, peritoneal surface, and liver. Lesion noted to distal transverse colon that extended to spleen, resection not performed due to being adhered to surrounding structures. The majority of the bowel had many small deposits of what appeared to be metastasis, as well as in the mesentery; too many lesions to count noted. Ileostomy performed. Cytology pending. Likely new stage 4 malignancy with peritoneal wall lesions. Oncology consult pending. Palliative care consulted for Stage 4 cancer; goals of care; and symptom management. Patient lying in bed watching television upon arrival for assessment. Patient alert and oriented times 3, no family present at bedside. Patient reports pain is an ache in the back, rated a 4/10, reports Dilaudid BOAT CLEANING SUPERVISOR and Neurontin is helping, and lying in bed so long is making it worse. Patient reports anxiety is under control with Valium. Patient denies shortness of breath, nausea, and vomiting. NG in place. Agreed with patient that it is too early to discuss discharge planning as waiting for pathology and oncology; patient plans for full aggressive treatment. Patient reports family is well educated and plans to complete research to find "any and all" treatment options. CC: Alfonso Hernandez, DO Past Med Surg Social Fam HX - Past Medical History Medical history: other Additional medical history: pelvic pain, lower back pain with lower limb dysesthesias, endometriosis, adenomyosis Psychiatric history: anxiety, depression - Past Surgical History Surgical History: hysterectomy Additional surgical history: Tubal ligation - Social History Smoking Status: Current every day smoker Packs per day: 1 Smokeless Tobacco Status: No Alcohol use: none Drug use: none - Family History Brother Hx Family Cancer: Yes (prostate) Sister Hx Family Endocrine Disorder: Yes (DM2) Medications and Allergies BuPROPion SR (12 HR) [Wellbutrin SR] 150 mg PO BID 12/21/15 [History] Esomeprazole Magnesium [Nexium] 20 mg PO DAILY 05/10/18 [History] Acetaminophen/Butalbital/Caffe [Fioricet] 1 tab PO TID PRN 05/11/18 [History] Gabapentin [Neurontin] 600 mg PO TID 05/11/18 [History] OxyCODONE Immed Rel [Roxicodone 15 MG] 15 mg PO Q8HR 05/11/18 [History] Quetiapine Fumarate [Seroquel] 50 mg PO HS 05/11/18 [History] Sucralfate [Carafate] 1 g PO BID 05/11/18 [History] diazePAM [Valium] 5 mg PO TID 05/11/18 [History] 3 Allergy/AdvReac Type Severity Reaction Status Date / Time steroid shot Allergy See Uncoded 05/10/18 15:54 Comments - Constitutional Constitutional ROS PAL: lethargy, weight loss, no fever(s) - Cardiovascular Cardiovascular ROS: no chest pain, no pedal edema - Respiratory Respiratory: no dyspnea - Gastrointestinal Gastrointestinal: abdominal pain, bloating, change in stool character, diarrhea , loose stools, no melena, no nausea, no vomiting - Musculoskeletal Musculoskeletal ROS IM: arthralgias, back pain - Psychiatric Psychiatric general PM: anxiety Palliative Care-Exam - Constitutional Vitals: Temp Pulse Resp BP Pulse Ox 98.6 F 99 18 124/85 95 05/14/18 08:33 05/14/18 08:33 05/14/18 08:33 05/14/18 08:33 05/14/18 08:33 General appearance: Present: cooperative, no acute distress - Head Head Exam: Present: atraumatic, normal inspection - Eye Eye exam: Present: EOMI, PERRL, conjuntiva pink. Absent: periorbital swelling, periorbital tenderness - ENT ENT exam: Present: mucous membranes moist, normal external ear exam - Expanded ENT Exam Mouth Exam: Absent: drooling - Neck Neck exam: Present: full ROM, normal inspection. Absent: tenderness - Respiratory Respiratory exam: Present: CTAB. Absent: accessory muscle use, respiratory distress - Cardiovascular Cardiovascular exam: Present: +S1, +S2 - Expanded Cardiovascular Exam Peripheral pulses: 2+: Radial (L), Radial (R), Posterior Tibialis (L), Posterior Tibialis (R), Dorsalis Pedis (L) PM, Dorsalis Pedis (R) PM - GI/Abdominal Exam GI/Abdominal exam: Present: diminished bowel sounds, tenderness - Rectal Rectal exam: Present: deferred - Catheter Type: Urethral (Schroeder) - Extremities Exam Extremities exam: Present: full ROM, normal inspection. Absent: calf tenderness , pedal edema - Back Exam Back exam: Present: full ROM, normal inspection - Neurological Exam Neurological exam: Present: alert, oriented X3, strengths equal and symetr throughout. Absent: altered - Expanded Neurological Exam Patient oriented to: Present: person, place, time Coma Scale Eye Opening: Spontaneous Coma Scale Motor Response: Obeys Commands Coma Scale Verbal Response: Oriented Coma Scale Total: 15 - Psychiatric Psychiatric exam: Present: normal affect, normal mood (tearful when discussing new cancer diagnosis.) Internal Medicine - CN: Reslt - Labs CBC & Chem 7: 05/14/18 04:18 05/14/18 04:18 Labs: Short CBC 05/14/18 Range/Units 04:18 WBC 13.3 H (4.3-11.1) K/mcL Hgb 12.8 (11.5-15.4) g/dL Hct 37.8 (35.3-44.9) % Plt Count 219 (140-400) K/mcL Neutrophils # 10.4 H (1.6-8.9) K/mcL BMP 05/14/18 04:18 Sodium 131 L Potassium 4.2 Chloride 102 Carbon Dioxide 23 BUN 10 Creatinine 0.44 L Glucose 125 H Calcium 8.6 Liver Function 05/14/18 Range/Units 04:18 Total Bilirubin 0.4 (0.3-1.0) mg/dL Direct Bilirubin 0.1 (0.0-0.2) mg/dL AST 11 L (13-39) Units/L ALT 7 (7-52) Units/L Alkaline Phosphatase 50 (34-104) Units/L Albumin 2.9 L (3.5-5.7) g/dL Consult Discharge Plan - Plan Referrals: Shae Russell, EYELET PUNCH OPERATOR [Primary Care Provider] - Palliative Quality Palliative Quality: Screen for Code Status: Yes, Screen for Goals of Care: Yes, Screen for Pain: Yes, If Pain Regimen Started, Initiate Bowel Regimen: NA, Screen for Nausea/Vomitting: Yes Code Status: 05/10/18 20:16 Resuscitation Status: Active [RES] Routine Comment: Resuscitation Status: Full Code
--- NOTE | 2018-05-14 10:36 | Internal Med Progress Note ---
<Alfonso Hernandez - Last Filed: 05/14/18 15:22> Hospitalist Progress Note - Encounter Date of Encounter: 05/14/18 - Exam Vitals: Temp Pulse Resp BP Pulse Ox 97.3 F L 109 16 135/97 95 05/14/18 14:36 05/14/18 14:36 05/14/18 14:36 05/14/18 14:36 05/14/18 14:36 - Assessment and Plan (1) Pleural effusion Current Visit: Yes Status: Acute (2) Anxiety and depression Current Visit: Yes Status: Chronic (3) DVT prophylaxis Current Visit: Yes Status: Acute (4) Abdominal pain Current Visit: Yes Status: Acute (5) C. difficile colitis Current Visit: Yes Status: Acute (6) Hypokalemia Current Visit: Yes Status: Resolved (7) Tobacco abuse Current Visit: Yes Status: Chronic (8) Colonic mass Current Visit: Yes Status: Acute - Time Spent with Patient Total time spent is greater than 50% in coordination of care (as documented) at patient's floor/unit and/or counseling patient: Internal Medicine: Result - Labs CBC & Chem 7: 05/14/18 04:18 05/14/18 04:18 Labs: Short CBC 05/14/18 Range/Units 04:18 WBC 13.3 H (4.3-11.1) K/mcL Hgb 12.8 (11.5-15.4) g/dL Hct 37.8 (35.3-44.9) % Plt Count 219 (140-400) K/mcL Neutrophils # 10.4 H (1.6-8.9) K/mcL BMP 05/14/18 04:18 Sodium 131 L Potassium 4.2 Chloride 102 Carbon Dioxide 23 BUN 10 Creatinine 0.44 L Glucose 125 H Calcium 8.6 Liver Function 05/14/18 Range/Units 04:18 Total Bilirubin 0.4 (0.3-1.0) mg/dL Direct Bilirubin 0.1 (0.0-0.2) mg/dL AST 11 L (13-39) Units/L ALT 7 (7-52) Units/L Alkaline Phosphatase 50 (34-104) Units/L Albumin 2.9 L (3.5-5.7) g/dL Consult Discharge Plan - Plan Referrals: Shae Russell, ASSISTANT CHIEF NURSING OFFICER [Primary Care Provider] - - Attending Attestation I examined this patient and my medical decision-making was reviewed with the Resident Physician on 05/14/18. I agree with the documented findings, disposition and treatment plan as described except to the extent set forth below. 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 Pathology pending and she is s/p exp lap. Remains on AIRPORT OPERATIONS COORDINATOR for pain control and we are monitoring. She remains moderate to high risk due to potential for worsening clinical status. Ms Warren is sitting up in bed. Had low grade fever last evening. None now. Pain controlled currently. Awaiting return of gut function. Exam alert Comfortable at this time Mucus membranes dry Heart not tachy No wheeze Dressing intact No edema I/P 1. Abdominal mass - path pending 2. Pleural effusion - path negative. 3. Continue AIRPORT OPERATIONS COORDINATOR for now. Further plan per surgery. Further diagnoses and plan as above. <Nicholas Edwards - Last Filed: 05/14/18 17:41> Hospitalist Progress Note - Encounter Date of Encounter: 05/14/18 Time of Encounter: 10:15 - Subjective Interval History: No acute events overnight. Patient pain control is adequate with the AIRPORT OPERATIONS COORDINATOR pump. Denies any systemic signs like fever, chills, shortness of breath. Denies any bowel movement. Pathology report is pending. Patient's family wants to take her to give clinic should there be any further intervention needed in terms of her colonic mass - Exam Vitals: Temp Pulse Resp BP Pulse Ox 98.0 F 106 16 133/90 94 05/14/18 10:21 05/14/18 10:21 05/14/18 10:21 05/14/18 10:21 05/14/18 10:21 Exam: General: pleasant, without distress HEENT: Head atraumatic, normocephalic, Moist Mucous Membranes, uvula midline Neck: nontender to palpation, absent lymphadenopathy, Cardiovascualr: Regular rate and rhythm with no murmur, absent gallops or rubs, absent pedal edema Lungs: Clear to auscultation bilaterally, not in respiratory distress Abdomen: Soft distendend, teneder diffusely, no BS, currently on AIRPORT OPERATIONS COORDINATOR pump for pain control Skin: warm and dry, absent rash, absent open wounds and nodules MSK: absent clubbing, cyanosis, joints without swelling Neuro: Cranial nerves II through XII intact, UE and LE sensation equal bilaterally, UE and LEstrength 5/5, alert oriented 3, Psych: good insight and judgment - Assessment and Plan (1) Abdominal pain Current Visit: Yes Status: Acute Assessment and Plan: - Due to malignancy with peritoneal wall lesions. Patient has CEA of 5.5. Curently POD #3 with excisional biopsy of peritoneal wall and diverting loop ileostomy - on AIRPORT OPERATIONS COORDINATOR pump for post operative pain control - no BS presents , - oncology consulted. -Daily wound care and colostomy management -Surgery follwing, Surgical specimen pathology pending (2) Pleural effusion Current Visit: Yes Status: Acute Assessment and Plan: -likely due to malignancy, patient had an elevated CEA. M -Patient CT chest was positive for small residual pleural effusion on the left side. -She is day 3 s/ p thoracentesis. The pleural fluid is found to be exudative in nature. Patient denies any shortness of breath chest pain. - Continue to monitor (3) Anxiety and depression Current Visit: Yes Status: Chronic Assessment and Plan: -Patient has a history of anxiety and depression. -Continue home meds. (4) C. difficile colitis Current Visit: Yes Status: Acute Assessment and Plan: - Her GI panel was positive for C. difficile colitis. -On day 4 of IV Flagyl. -Continue contact precautions. (5) Abdominal carcinomatosis Current Visit: Yes Status: Acute Assessment and Plan: She was found to have colonic mass, CEA 5.5 - Pending pathological Evaluation (6) Goals of care, counseling/discussion Current Visit: Yes Status: Acute Assessment and Plan: - The family will require full aggressive treatment once the pathogy report is out. On briefly talking to the mom, it seems to me that they would like to go to [facility] for further management. - Palliative care following (7) Back pain Current Visit: Yes Status: Chronic Assessment and Plan: - Patient has a history of chronic back pain. -Currently on AIRPORT OPERATIONS COORDINATOR Dilaudid pump. We will consider transitioning to PO meds soon. DVT Prophylaxis: heparin SQ - Time Spent with Patient Total time spent is greater than 50% in coordination of care (as documented) at patient's floor/unit and/or counseling patient: Internal Medicine: Result - Labs CBC & Chem 7: 05/14/18 04:18 05/14/18 04:18 Labs: Short CBC 05/14/18 Range/Units 04:18 WBC 13.3 H (4.3-11.1) K/mcL Hgb 12.8 (11.5-15.4) g/dL Hct 37.8 (35.3-44.9) % Plt Count 219 (140-400) K/mcL Neutrophils # 10.4 H (1.6-8.9) K/mcL BMP 05/14/18 04:18 Sodium 131 L Potassium 4.2 Chloride 102 Carbon Dioxide 23 BUN 10 Creatinine 0.44 L Glucose 125 H Calcium 8.6 Liver Function 05/14/18 Range/Units 04:18 Total Bilirubin 0.4 (0.3-1.0) mg/dL Direct Bilirubin 0.1 (0.0-0.2) mg/dL AST 11 L (13-39) Units/L ALT 7 (7-52) Units/L Alkaline Phosphatase 50 (34-104) Units/L Albumin 2.9 L (3.5-5.7) g/dL <Alfonso Hernandez - Last Filed: 05/14/18 15:22> (4) Abdominal pain Qualifiers: Abdominal location: generalized Qualified Code(s): R10.84 - Generalized abdominal pain <Nicholas Edwards - Last Filed: 05/14/18 17:41> (1) Abdominal pain Qualifiers: Abdominal location: generalized Qualified Code(s): R10.84 - Generalized abdominal pain (7) Back pain Qualifiers: Back pain location: back pain in unspecified location Chronicity: chronic Back pain laterality: unspecified Qualified Code(s): M54.9 - Dorsalgia, unspecified; G89.29 - Other chronic pain
[2018-05-14] MEDS: *HR* HYDROmorphone 20 MG/20 ML PCA IVC PRN (22:13)
--- NOTE | 2018-05-14 22:40 | Oncology Inp Consult Note ---
<Yesica Dunn L - Last Filed: 05/15/18 14:40> Date of Encounter: 05/14/18 Time of Encounter: 18:00 Assessment and Plan (1) Abdominal carcinomatosis Status: Acute Assessment and plan: Discussed operative report findings suggestive of abdominal carcinomatosis with patient at bedside today. Exact histology unknown, path is still pending, etiology may be secondary to female tract or GI in origin, among others CEA mildly elevated at 5.5 Check CA 19-9 and CA [address] chest with IV contrast for staging purposes Colonoscopy on 04/04/18 aborted secondary to poor prep EGD 04/04/18 revealed gastritis, duodenitis, esophagitis related to GERD- pathology report benign Further treatment options to be discussed following final pathology result (2) C. difficile colitis Status: Acute Assessment and plan: Treatment per surgery/primary hospitalist team-treating with IV flagyl (3) Pleural effusion Status: Acute Assessment and plan: Left thoracentsis cytology did reveal atypical cells that favor reactive mesothelial - Data of Consult Patient: new to practice Consult date: 05/14/18 Requesting Physician: Alfonso Hernandez DO Primary Care Provider: Shae Russell CNP - Consult Narrative Reason for consult: peritoneal lesions History of present illness: Ms. Warren is a 52 year old female with PMH significant for IBS, presented to [facility] for bowel habit changes, abdominal pain/bloating, that has been worsening since January. She reports initial issues with constipation followed by more recent issues with loose stool. She has been intentionally attempting to lose weight and has lost about 40 pounds since January, since losing weight she has noticed increased abdominal distention. She was scheduled for a colonoscopy with Dr. Urrutia, however, this was aborted secondary to poor bowel prep and rescheduled for this month. Her CT abdomen/pelvis upon admission revealed findings suggestive of infectious enteritis along with an internal hernia, diffuse bowel thickening, ascites and a left sided pleural effusion. She had a left thoracentesis with removal of 575 ml fluid ib 05/11/18 She was taken to OR for exploratory laparotomy with Dr. Urrutia on 05/11/2018, she was found to have extensive peritoneal and liver lesions which were biopsied. The majority of the bowel was noted to have small deposits of what appeared to be metastases similar to the mesentary, there was also a large lesion noted to the cecum, the size of a tangerine. A diverting loop ileostomy was placed. She reports no personal or family history of cancer. She has had a prior total hysterectomy. Past Med Surg Social Fam HX - Past Medical History Medical history: other Additional medical history: pelvic pain, lower back pain with lower limb dysesthesias, endometriosis, adenomyosis Psychiatric history: anxiety, depression - Past Surgical History Surgical History: hysterectomy Additional surgical history: Tubal ligation - Social History Smoking Status: Current every day smoker Packs per day: 1 Smokeless Tobacco Status: No Alcohol use: none Drug use: none - Family History Brother Hx Family Cancer: Yes (prostate) Sister Hx Family Endocrine Disorder: Yes (DM2) Medications and Allergies BuPROPion SR (12 HR) [Wellbutrin SR] 150 mg PO BID 12/21/15 [History] Esomeprazole Magnesium [Nexium] 20 mg PO DAILY 05/10/18 [History] Acetaminophen/Butalbital/Caffe [Fioricet] 1 tab PO TID PRN 05/11/18 [History] Gabapentin [Neurontin] 600 mg PO TID 05/11/18 [History] OxyCODONE Immed Rel [Roxicodone 15 MG] 15 mg PO Q8HR 05/11/18 [History] Quetiapine Fumarate [Seroquel] 50 mg PO HS 05/11/18 [History] Sucralfate [Carafate] 1 g PO BID 05/11/18 [History] diazePAM [Valium] 5 mg PO TID 05/11/18 [History] 3 Allergy/AdvReac Type Severity Reaction Status Date / Time steroid shot Allergy See Uncoded 05/10/18 15:54 Comments Constitutional: Present: as per HPI, fatigue, weakness, weight loss Eyes: Absent: change in vision Nose, mouth and throat: Absent: dysphagia Cardiovascular: Absent: chest pain, irregular heart rhythm Respiratory: Absent: cough, dyspnea Gastrointestinal: Present: as per HPI, abdominal pain, bloating, constipation, early satiety, loose stools, nausea. Absent: hematemesis, hematochezia, vomiting Genitourinary: Absent: dysuria Musculoskeletal: Present: muscle weakness Integumentary: Absent: wounds Neurological: Absent: focal weakness, frequent falls Hematologic/Lymphatic: Present: as per HPI Oncology - Exam - Constitutional Vitals: Temp Pulse Resp BP Pulse Ox 99.1 F 110 16 119/84 95 05/14/18 20:22 05/14/18 20:22 05/14/18 20:22 05/14/18 20:22 05/14/18 20:22 General appearance: cooperative, no acute distress, no febrile - Head Head exam: Present: atraumatic - ENT ENT exam: Present: mucous membranes moist - Respiratory Respiratory exam: Present: CTAB. Absent: respiratory distress - Cardiovascular Cardiovascular exam: Present: RRR, +S1, +S2, tachycardia - GI/Abdominal GI/Abdominal exam: Present: hypoactive bowel sounds, soft Additional comments: post-op tenderness, colostomy - Additional comments: dozier with red colored urine - Extremities Exam Extremities exam: Present: normal inspection. Absent: calf tenderness - Neurological Exam Neurological exam: Present: alert, oriented X3, no focal deficits, strengths equal and symetr throughout - Psychiatric Psychiatric exam: Present: normal affect, normal mood - Skin Skin exam: Present: dry, normal color, warm Oncology - Results Labs: 3 05/14/18 05/14/18 05/14/18 11:12 05:07 04:18 WBC RBC Hgb Hct MCV MCH MCHC RDW Plt Count MPV Immature Gran % Seg Neutrophils % Lymphocytes % Monocytes % Eosinophils % Basophils % Neutrophils # Lymphocytes # Monocytes # Eosinophils # Basophils # Immature Plt Fraction Sodium 131 L Potassium 4.2 Chloride 102 Carbon Dioxide 23 BUN 10 Creatinine 0.44 L Est GFR ( Amer) > 60 Est GFR (Non-Af Amer) > 60 BUN/Creatinine Ratio 23 Glucose 125 H POC Glucose 146 H 113 H Calculated Osmolality 273 L Calcium 8.6 Magnesium Total Bilirubin 0.4 Direct Bilirubin 0.1 Indirect Bilirubin 0.3 AST 11 L ALT 7 Alkaline Phosphatase 50 Lactate Dehydrogenase Serum Total Protein 5.4 L Albumin 2.9 L Globulin 2.5 Albumin/Globulin Ratio 1.2 Carcinoembryonic Ag Fl Pathologist Review Fluid Triglyceride Source Fluid Triglycerides Pleural Fluid Volume Pleural Appearance Pleural pH Pleural RBC Pleural Tot Nuc Cell Pleural Neutrophils Pleural Band Neuts Pleural Eosinophils Pleural Basophils Pleural Lymphocytes % Pleural Monocytes % Pleural Other Cells % Pleural Total Protein Pleural LDH Pleural Glucose Stool Occult Blood Stl C. cayetanensis PCR Stool Rotavirus A PCR Stl Adenov F 40/41 PCR Stool Astrovirus (PCR) Stool Campylobacter PCR Stl C. diff Tox B Gene Stl C. diff Tox A/B PCR Stool Cryptosporidium PCR Stl Sh Tox Pr E STEC PCR Stool E coli O157 PCR Stl Enterotoxigenic E PCR Stool EPEC (PCR) Stool EAEC (PCR) Stl E. histolytica PCR Stool Giardia Lamblia PCR Stool Salmonella PCR Stool Sapovirus (PCR) Stl P. shigelloides PCR Stl Shigella/EIEC PCR St Y.enterocolitica PCR Stool Vibrio (PCR) Stl Vibrio cholerae PCR Stl Norovirus GI/GII PCR Stl GI Panel (PCR) Com 3 05/14/18 05/14/18 05/13/18 04:18 01:18 17:19 WBC 13.3 H RBC 4.38 Hgb 12.8 Hct 37.8 MCV 86.3 MCH 29.2 MCHC 33.9 RDW 14.6 H Plt Count 219 MPV 11.8 Immature Gran % 0.4 Seg Neutrophils % 77.9 Lymphocytes % 11.3 Monocytes % 10.0 Eosinophils % 0.2 Basophils % 0.2 Neutrophils # 10.4 H Lymphocytes # 1.5 Monocytes # 1.3 Eosinophils # 0.0 Basophils # 0.0 Immature Plt Fraction Sodium Potassium Chloride Carbon Dioxide BUN Creatinine Est GFR ( Amer) Est GFR (Non-Af Amer) BUN/Creatinine Ratio Glucose POC Glucose 103 H 115 H Calculated Osmolality Calcium Magnesium Total Bilirubin Direct Bilirubin Indirect Bilirubin AST ALT Alkaline Phosphatase Lactate Dehydrogenase Serum Total Protein Albumin Globulin Albumin/Globulin Ratio Carcinoembryonic Ag Fl Pathologist Review Fluid Triglyceride Source Fluid Triglycerides Pleural Fluid Volume Pleural Appearance Pleural pH Pleural RBC Pleural Tot Nuc Cell Pleural Neutrophils Pleural Band Neuts Pleural Eosinophils Pleural Basophils Pleural Lymphocytes % Pleural Monocytes % Pleural Other Cells % Pleural Total Protein Pleural LDH Pleural Glucose Stool Occult Blood Stl C. cayetanensis PCR Stool Rotavirus A PCR Stl Adenov F 40/41 PCR Stool Astrovirus (PCR) Stool Campylobacter PCR Stl C. diff Tox B Gene Stl C. diff Tox A/B PCR Stool Cryptosporidium PCR Stl Sh Tox Pr E STEC PCR Stool E coli O157 PCR Stl Enterotoxigenic E PCR Stool EPEC (PCR) Stool EAEC (PCR) Stl E. histolytica PCR Stool Giardia Lamblia PCR Stool Salmonella PCR Stool Sapovirus (PCR) Stl P. shigelloides PCR Stl Shigella/EIEC PCR St Y.enterocolitica PCR Stool Vibrio (PCR) Stl Vibrio cholerae PCR Stl Norovirus GI/GII PCR Stl GI Panel (PCR) Com 3 05/13/18 05/13/18 05/13/18 11:23 04:15 04:15 WBC 15.8 H D RBC 4.60 Hgb 13.3 D Hct 39.5 MCV 85.9 MCH 28.9 MCHC 33.7 RDW 14.5 Plt Count 242 MPV 11.6 Immature Gran % 0.6 Seg Neutrophils % 77.0 Lymphocytes % 10.1 Monocytes % 12.0 Eosinophils % 0.0 Basophils % 0.3 Neutrophils # 12.2 H Lymphocytes # 1.6 Monocytes # 1.9 H Eosinophils # 0.0 Basophils # 0.1 Immature Plt Fraction Sodium 132 L Potassium 4.4 Chloride 104 Carbon Dioxide 22 L BUN 11 Creatinine 0.51 L Est GFR ( Amer) > 60 Est GFR (Non-Af Amer) > 60 BUN/Creatinine Ratio 22 Glucose 133 H POC Glucose 140 H Calculated Osmolality 275 L Calcium 8.2 L Magnesium Total Bilirubin Direct Bilirubin Indirect Bilirubin AST ALT Alkaline Phosphatase Lactate Dehydrogenase Serum Total Protein Albumin Globulin Albumin/Globulin Ratio Carcinoembryonic Ag Fl Pathologist Review Fluid Triglyceride Source Fluid Triglycerides Pleural Fluid Volume Pleural Appearance Pleural pH Pleural RBC Pleural Tot Nuc Cell Pleural Neutrophils Pleural Band Neuts Pleural Eosinophils Pleural Basophils Pleural Lymphocytes % Pleural Monocytes % Pleural Other Cells % Pleural Total Protein Pleural LDH Pleural Glucose Stool Occult Blood Stl C. cayetanensis PCR Stool Rotavirus A PCR Stl Adenov F 40/41 PCR Stool Astrovirus (PCR) Stool Campylobacter PCR Stl C. diff Tox B Gene Stl C. diff Tox A/B PCR Stool Cryptosporidium PCR Stl Sh Tox Pr E STEC PCR Stool E coli O157 PCR Stl Enterotoxigenic E PCR Stool EPEC (PCR) Stool EAEC (PCR) Stl E. histolytica PCR Stool Giardia Lamblia PCR Stool Salmonella PCR Stool Sapovirus (PCR) Stl P. shigelloides PCR Stl Shigella/EIEC PCR St Y.enterocolitica PCR Stool Vibrio (PCR) Stl Vibrio cholerae PCR Stl Norovirus GI/GII PCR Stl GI Panel (PCR) Com 3 05/12/18 05/12/18 05/12/18 23:31 11:41 09:41 WBC RBC Hgb Hct MCV MCH MCHC RDW Plt Count MPV Immature Gran % Seg Neutrophils % Lymphocytes % Monocytes % Eosinophils % Basophils % Neutrophils # Lymphocytes # Monocytes # Eosinophils # Basophils # Immature Plt Fraction Sodium 134 L Potassium 4.4 Chloride 102 Carbon Dioxide 23 BUN 15 Creatinine 0.68 Est GFR ( Amer) > 60 Est GFR (Non-Af Amer) > 60 BUN/Creatinine Ratio 22 Glucose 158 H POC Glucose 137 H 190 H Calculated Osmolality 282 Calcium 8.5 L Magnesium Total Bilirubin Direct Bilirubin Indirect Bilirubin AST ALT Alkaline Phosphatase Lactate Dehydrogenase Serum Total Protein Albumin Globulin Albumin/Globulin Ratio Carcinoembryonic Ag Fl Pathologist Review Fluid Triglyceride Source Fluid Triglycerides Pleural Fluid Volume Pleural Appearance Pleural pH Pleural RBC Pleural Tot Nuc Cell Pleural Neutrophils Pleural Band Neuts Pleural Eosinophils Pleural Basophils Pleural Lymphocytes % Pleural Monocytes % Pleural Other Cells % Pleural Total Protein Pleural LDH Pleural Glucose Stool Occult Blood Stl C. cayetanensis PCR Stool Rotavirus A PCR Stl Adenov F 40/41 PCR Stool Astrovirus (PCR) Stool Campylobacter PCR Stl C. diff Tox B Gene Stl C. diff Tox A/B PCR Stool Cryptosporidium PCR Stl Sh Tox Pr E STEC PCR Stool E coli O157 PCR Stl Enterotoxigenic E PCR Stool EPEC (PCR) Stool EAEC (PCR) Stl E. histolytica PCR Stool Giardia Lamblia PCR Stool Salmonella PCR Stool Sapovirus (PCR) Stl P. shigelloides PCR Stl Shigella/EIEC PCR St Y.enterocolitica PCR Stool Vibrio (PCR) Stl Vibrio cholerae PCR Stl Norovirus GI/GII PCR Stl GI Panel (PCR) Com 3 05/12/18 05/12/18 05/11/18 05:42 00:34 13:10 WBC RBC Hgb Hct MCV MCH MCHC RDW Plt Count MPV Immature Gran % Seg Neutrophils % Lymphocytes % Monocytes % Eosinophils % Basophils % Neutrophils # Lymphocytes # Monocytes # Eosinophils # Basophils # Immature Plt Fraction Sodium Potassium Chloride Carbon Dioxide BUN Creatinine Est GFR ( Amer) Est GFR (Non-Af Amer) BUN/Creatinine Ratio Glucose POC Glucose 156 H 165 H Calculated Osmolality Calcium Magnesium Total Bilirubin Direct Bilirubin Indirect Bilirubin AST ALT Alkaline Phosphatase Lactate Dehydrogenase Serum Total Protein Albumin Globulin Albumin/Globulin Ratio Carcinoembryonic Ag Fl Pathologist Review Fluid Triglyceride Source Fluid Triglycerides Pleural Fluid Volume Pleural Appearance Pleural pH Pleural RBC Pleural Tot Nuc Cell Pleural Neutrophils Pleural Band Neuts Pleural Eosinophils Pleural Basophils Pleural Lymphocytes % Pleural Monocytes % Pleural Other Cells % Pleural Total Protein Pleural LDH Pleural Glucose Stool Occult Blood Stl C. cayetanensis PCR Stool Rotavirus A PCR Stl Adenov F 40/41 PCR Stool Astrovirus (PCR) Stool Campylobacter PCR Stl C. diff Tox B Gene Positive A Stl C. diff Tox A/B PCR Stool Cryptosporidium PCR Stl Sh Tox Pr E STEC PCR Stool E coli O157 PCR Stl Enterotoxigenic E PCR Stool EPEC (PCR) Stool EAEC (PCR) Stl E. histolytica PCR Stool Giardia Lamblia PCR Stool Salmonella PCR Stool Sapovirus (PCR) Stl P. shigelloides PCR Stl Shigella/EIEC PCR St Y.enterocolitica PCR Stool Vibrio (PCR) Stl Vibrio cholerae PCR Stl Norovirus GI/GII PCR Stl GI Panel (PCR) Com 3 05/11/18 05/11/18 05/11/18 13:10 13:10 11:23 WBC RBC Hgb Hct MCV MCH MCHC RDW Plt Count MPV Immature Gran % Seg Neutrophils % Lymphocytes % Monocytes % Eosinophils % Basophils % Neutrophils # Lymphocytes # Monocytes # Eosinophils # Basophils # Immature Plt Fraction Sodium Potassium Chloride Carbon Dioxide BUN Creatinine Est GFR ( Amer) Est GFR (Non-Af Amer) BUN/Creatinine Ratio Glucose POC Glucose 108 H Calculated Osmolality Calcium Magnesium Total Bilirubin Direct Bilirubin Indirect Bilirubin AST ALT Alkaline Phosphatase Lactate Dehydrogenase Serum Total Protein Albumin Globulin Albumin/Globulin Ratio Carcinoembryonic Ag Fl Pathologist Review Fluid Triglyceride Source Fluid Triglycerides Pleural Fluid Volume Pleural Appearance Pleural pH Pleural RBC Pleural Tot Nuc Cell Pleural Neutrophils Pleural Band Neuts Pleural Eosinophils Pleural Basophils Pleural Lymphocytes % Pleural Monocytes % Pleural Other Cells % Pleural Total Protein Pleural LDH Pleural Glucose Stool Occult Blood Positive A Stl C. cayetanensis PCR Not detected Stool Rotavirus A PCR Not detected Stl Adenov F 40/ PCR Not detected Stool Astrovirus (PCR) Not detected Stool Campylobacter PCR Not detected Stl C. diff Tox B Gene Stl C. diff Tox A/B PCR See reflex test A Stool Cryptosporidium PCR Not detected Stl Sh Tox Pr E STEC PCR Not detected Stool E coli O157 PCR Not detected Stl Enterotoxigenic E PCR Not detected Stool EPEC (PCR) Not detected Stool EAEC (PCR) Not detected Stl E. histolytica PCR Not detected Stool Giardia Lamblia PCR Not detected Stool Salmonella PCR Not detected Stool Sapovirus (PCR) Not detected Stl P. shigelloides PCR Not detected Stl Shigella/EIEC PCR Not detected St Y.enterocolitica PCR Not detected Stool Vibrio (PCR) Not detected Stl Vibrio cholerae PCR Not detected Stl Norovirus GI/GII PCR Not detected Stl GI Panel (PCR) Com See below 3 05/11/18 05/11/18 05/11/18 10:20 10:20 10:20 WBC RBC Hgb Hct MCV MCH MCHC RDW Plt Count MPV Immature Gran % Seg Neutrophils % Lymphocytes % Monocytes % Eosinophils % Basophils % Neutrophils # Lymphocytes # Monocytes # Eosinophils # Basophils # Immature Plt Fraction Sodium Potassium Chloride Carbon Dioxide BUN Creatinine Est GFR ( Amer) Est GFR (Non-Af Amer) BUN/Creatinine Ratio Glucose POC Glucose Calculated Osmolality Calcium Magnesium Total Bilirubin Direct Bilirubin Indirect Bilirubin AST ALT Alkaline Phosphatase Lactate Dehydrogenase Serum Total Protein Albumin Globulin Albumin/Globulin Ratio Carcinoembryonic Ag Fl Pathologist Review Fluid Triglyceride Source PLEURAL FLUID Fluid Triglycerides 34 Pleural Fluid Volume 550.0 Pleural Appearance Hazy A Pleural pH 8.00 Pleural RBC 0.005 H Pleural Tot Nuc Cell 6416 H Pleural Neutrophils 6.0 Pleural Band Neuts Test Not Performed Pleural Eosinophils Test Not Performed Pleural Basophils Test Not Performed Pleural Lymphocytes % 94.0 Pleural Monocytes % Test Not Performed Pleural Other Cells % Test Not Performed Pleural Total Protein 3.8 Pleural LDH 131 Pleural Glucose 93 Stool Occult Blood Stl C. cayetanensis PCR Stool Rotavirus A PCR Stl Adenov F 40/41 PCR Stool Astrovirus (PCR) Stool Campylobacter PCR Stl C. diff Tox B Gene Stl C. diff Tox A/B PCR Stool Cryptosporidium PCR Stl Sh Tox Pr E STEC PCR Stool E coli O157 PCR Stl Enterotoxigenic E PCR Stool EPEC (PCR) Stool EAEC (PCR) Stl E. histolytica PCR Stool Giardia Lamblia PCR Stool Salmonella PCR Stool Sapovirus (PCR) Stl P. shigelloides PCR Stl Shigella/EIEC PCR St Y.enterocolitica PCR Stool Vibrio (PCR) Stl Vibrio cholerae PCR Stl Norovirus GI/GII PCR Stl GI Panel (PCR) Com 3 05/11/18 05/11/18 05/11/18 10:20 05:15 03:41 WBC RBC Hgb Hct MCV MCH MCHC RDW Plt Count MPV Immature Gran % Seg Neutrophils % Lymphocytes % Monocytes % Eosinophils % Basophils % Neutrophils # Lymphocytes # Monocytes # Eosinophils # Basophils # Immature Plt Fraction Sodium Potassium Chloride Carbon Dioxide BUN Creatinine Est GFR ( Amer) Est GFR (Non-Af Amer) BUN/Creatinine Ratio Glucose POC Glucose 103 H Calculated Osmolality Calcium Magnesium Total Bilirubin Direct Bilirubin Indirect Bilirubin AST ALT Alkaline Phosphatase Lactate Dehydrogenase Serum Total Protein Albumin Globulin Albumin/Globulin Ratio Carcinoembryonic Ag 5.5 H Fl Pathologist Review See below Fluid Triglyceride Source Fluid Triglycerides Pleural Fluid Volume Pleural Appearance Pleural pH Pleural RBC Pleural Tot Nuc Cell Pleural Neutrophils Pleural Band Neuts Pleural Eosinophils Pleural Basophils Pleural Lymphocytes % Pleural Monocytes % Pleural Other Cells % Pleural Total Protein Pleural LDH Pleural Glucose Stool Occult Blood Stl C. cayetanensis PCR Stool Rotavirus A PCR Stl Adenov F 40/41 PCR Stool Astrovirus (PCR) Stool Campylobacter PCR Stl C. diff Tox B Gene Stl C. diff Tox A/B PCR Stool Cryptosporidium PCR Stl Sh Tox Pr E STEC PCR Stool E coli O157 PCR Stl Enterotoxigenic E PCR Stool EPEC (PCR) Stool EAEC (PCR) Stl E. histolytica PCR Stool Giardia Lamblia PCR Stool Salmonella PCR Stool Sapovirus (PCR) Stl P. shigelloides PCR Stl Shigella/EIEC PCR St Y.enterocolitica PCR Stool Vibrio (PCR) Stl Vibrio cholerae PCR Stl Norovirus GI/GII PCR Stl GI Panel (PCR) Com 3 05/11/18 05/11/18 03:41 03:41 WBC 8.6 RBC 4.95 Hgb 14.8 Hct 42.8 MCV 86.5 MCH 29.9 MCHC 34.6 RDW 14.0 Plt Count 278 MPV 10.8 Immature Gran % 1.5 Seg Neutrophils % 51.9 Lymphocytes % 31.8 Monocytes % 12.4 Eosinophils % 1.8 Basophils % 0.6 Neutrophils # 4.4 Lymphocytes # 2.7 Monocytes # 1.1 Eosinophils # 0.2 Basophils # 0.1 Immature Plt Fraction 7.6 H Sodium 134 L Potassium 3.2 L Chloride 100 Carbon Dioxide 26 BUN 13 Creatinine 0.68 Est GFR ( Amer) > 60 Est GFR (Non-Af Amer) > 60 BUN/Creatinine Ratio 19 Glucose 94 POC Glucose Calculated Osmolality 278 L Calcium 8.6 Magnesium 2.0 Total Bilirubin Direct Bilirubin Indirect Bilirubin AST ALT Alkaline Phosphatase Lactate Dehydrogenase 126 L Serum Total Protein Albumin 3.3 L Globulin Albumin/Globulin Ratio Carcinoembryonic Ag Fl Pathologist Review Fluid Triglyceride Source Fluid Triglycerides Pleural Fluid Volume Pleural Appearance Pleural pH Pleural RBC Pleural Tot Nuc Cell Pleural Neutrophils Pleural Band Neuts Pleural Eosinophils Pleural Basophils Pleural Lymphocytes % Pleural Monocytes % Pleural Other Cells % Pleural Total Protein Pleural LDH Pleural Glucose Stool Occult Blood Stl C. cayetanensis PCR Stool Rotavirus A PCR Stl Adenov F 40/41 PCR Stool Astrovirus (PCR) Stool Campylobacter PCR Stl C. diff Tox B Gene Stl C. diff Tox A/B PCR Stool Cryptosporidium PCR Stl Sh Tox Pr E STEC PCR Stool E coli O157 PCR Stl Enterotoxigenic E PCR Stool EPEC (PCR) Stool EAEC (PCR) Stl E. histolytica PCR Stool Giardia Lamblia PCR Stool Salmonella PCR Stool Sapovirus (PCR) Stl P. shigelloides PCR Stl Shigella/EIEC PCR St Y.enterocolitica PCR Stool Vibrio (PCR) Stl Vibrio cholerae PCR Stl Norovirus GI/GII PCR Stl GI Panel (PCR) Com Consult Discharge Plan - Plan Referrals: Shae Russell CNP [Primary Care Provider] - <Mendel Clarke S - Last Filed: 05/15/18 17:18> Date of Encounter: 05/14/18 - Data of Consult Requesting Physician: Alfonso Hernandez DO Primary Care Provider: Shae Russell CNP - Consult Narrative History of present illness: Ms. Warren is a 52 year old female Oncology - Exam - Constitutional Vitals: Temp Pulse Resp BP Pulse Ox 98.1 F 116 12 116/88 95 05/15/18 11:31 05/15/18 11:31 05/15/18 11:31 05/15/18 11:31 05/15/18 11:31 Oncology - Results Labs: 3 05/15/18 05/15/18 05/15/18 10:55 04:08 04:08 WBC 14.7 H RBC 4.47 Hgb 12.9 Hct 38.1 MCV 85.2 MCH 28.9 MCHC 33.9 RDW 14.5 Plt Count 289 MPV 10.9 Immature Gran % 0.5 Seg Neutrophils % 78.3 Lymphocytes % 11.3 Monocytes % 8.7 Eosinophils % 0.9 Basophils % 0.3 Neutrophils # 11.5 H Lymphocytes # 1.7 Monocytes # 1.3 Eosinophils # 0.1 Basophils # 0.1 Immature Plt Fraction Sodium 132 L Potassium 4.3 Chloride 102 Carbon Dioxide 25 BUN 11 Creatinine 0.50 L Est GFR ( Amer) > 60 Est GFR (Non-Af Amer) > 60 BUN/Creatinine Ratio 22 Glucose 127 H POC Glucose Calculated Osmolality 275 L Calcium 8.5 L Phosphorus 3.3 Magnesium 1.9 Total Bilirubin Direct Bilirubin Indirect Bilirubin AST ALT Alkaline Phosphatase Lactate Dehydrogenase Serum Total Protein Albumin Globulin Albumin/Globulin Ratio Carcinoembryonic Ag CA 125 Ag Serial Mntr 163 H Fl Pathologist Review Fluid Triglyceride Source Fluid Triglycerides Pleural Fluid Volume Pleural Appearance Pleural pH Pleural RBC Pleural Tot Nuc Cell Pleural Neutrophils Pleural Band Neuts Pleural Eosinophils Pleural Basophils Pleural Lymphocytes % Pleural Monocytes % Pleural Other Cells % Pleural Total Protein Pleural LDH Pleural Glucose Stool Occult Blood Stl C. cayetanensis PCR Stool Rotavirus A PCR Stl Adenov F 40/41 PCR Stool Astrovirus (PCR) Stool Campylobacter PCR Stl C. diff Tox B Gene Stl C. diff Tox A/B PCR Stool Cryptosporidium PCR Stl Sh Tox Pr E STEC PCR Stool E coli O157 PCR Stl Enterotoxigenic E PCR Stool EPEC (PCR) Stool EAEC (PCR) Stl E. histolytica PCR Stool Giardia Lamblia PCR Stool Salmonella PCR Stool Sapovirus (PCR) Stl P. shigelloides PCR Stl Shigella/EIEC PCR St Y.enterocolitica PCR Stool Vibrio (PCR) Stl Vibrio cholerae PCR Stl Norovirus GI/GII PCR Stl GI Panel (PCR) Com 3 05/15/18 05/14/18 05/14/18 00:07 16:58 11:12 WBC RBC Hgb Hct MCV MCH MCHC RDW Plt Count MPV Immature Gran % Seg Neutrophils % Lymphocytes % Monocytes % Eosinophils % Basophils % Neutrophils # Lymphocytes # Monocytes # Eosinophils # Basophils # Immature Plt Fraction Sodium Potassium Chloride Carbon Dioxide BUN Creatinine Est GFR ( Amer) Est GFR (Non-Af Amer) BUN/Creatinine Ratio Glucose POC Glucose 127 H 114 H 146 H Calculated Osmolality Calcium Phosphorus Magnesium Total Bilirubin Direct Bilirubin Indirect Bilirubin AST ALT Alkaline Phosphatase Lactate Dehydrogenase Serum Total Protein Albumin Globulin Albumin/Globulin Ratio Carcinoembryonic Ag CA 125 Ag Serial Mntr Fl Pathologist Review Fluid Triglyceride Source Fluid Triglycerides Pleural Fluid Volume Pleural Appearance Pleural pH Pleural RBC Pleural Tot Nuc Cell Pleural Neutrophils Pleural Band Neuts Pleural Eosinophils Pleural Basophils Pleural Lymphocytes % Pleural Monocytes % Pleural Other Cells % Pleural Total Protein Pleural LDH Pleural Glucose Stool Occult Blood Stl C. cayetanensis PCR Stool Rotavirus A PCR Stl Adenov F PCR Stool Astrovirus (PCR) Stool Campylobacter PCR Stl C. diff Tox B Gene Stl C. diff Tox A/B PCR Stool Cryptosporidium PCR Stl Sh Tox Pr E STEC PCR Stool E coli O157 PCR Stl Enterotoxigenic E PCR Stool EPEC (PCR) Stool EAEC (PCR) Stl E. histolytica PCR Stool Giardia Lamblia PCR Stool Salmonella PCR Stool Sapovirus (PCR) Stl P. shigelloides PCR Stl Shigella/EIEC PCR St Y.enterocolitica PCR Stool Vibrio (PCR) Stl Vibrio cholerae PCR Stl Norovirus GI/GII PCR Stl GI Panel (PCR) Com 3 05/14/18 05/14/18 05/14/18 05:07 04:18 04:18 WBC 13.3 H RBC 4.38 Hgb 12.8 Hct 37.8 MCV 86.3 MCH 29.2 MCHC 33.9 RDW 14.6 H Plt Count 219 MPV 11.8 Immature Gran % 0.4 Seg Neutrophils % 77.9 Lymphocytes % 11.3 Monocytes % 10.0 Eosinophils % 0.2 Basophils % 0.2 Neutrophils # 10.4 H Lymphocytes # 1.5 Monocytes # 1.3 Eosinophils # 0.0 Basophils # 0.0 Immature Plt Fraction Sodium 131 L Potassium 4.2 Chloride 102 Carbon Dioxide 23 BUN 10 Creatinine 0.44 L Est GFR ( Amer) > 60 Est GFR (Non-Af Amer) > 60 BUN/Creatinine Ratio 23 Glucose 125 H POC Glucose 113 H Calculated Osmolality 273 L Calcium 8.6 Phosphorus Magnesium Total Bilirubin 0.4 Direct Bilirubin 0.1 Indirect Bilirubin 0.3 AST 11 L ALT 7 Alkaline Phosphatase 50 Lactate Dehydrogenase Serum Total Protein 5.4 L Albumin 2.9 L Globulin 2.5 Albumin/Globulin Ratio 1.2 Carcinoembryonic Ag CA 125 Ag Serial Mntr Fl Pathologist Review Fluid Triglyceride Source Fluid Triglycerides Pleural Fluid Volume Pleural Appearance Pleural pH Pleural RBC Pleural Tot Nuc Cell Pleural Neutrophils Pleural Band Neuts Pleural Eosinophils Pleural Basophils Pleural Lymphocytes % Pleural Monocytes % Pleural Other Cells % Pleural Total Protein Pleural LDH Pleural Glucose Stool Occult Blood Stl C. cayetanensis PCR Stool Rotavirus A PCR Stl Adenov F PCR Stool Astrovirus (PCR) Stool Campylobacter PCR Stl C. diff Tox B Gene Stl C. diff Tox A/B PCR Stool Cryptosporidium PCR Stl Sh Tox Pr E STEC PCR Stool E coli O157 PCR Stl Enterotoxigenic E PCR Stool EPEC (PCR) Stool EAEC (PCR) Stl E. histolytica PCR Stool Giardia Lamblia PCR Stool Salmonella PCR Stool Sapovirus (PCR) Stl P. shigelloides PCR Stl Shigella/EIEC PCR St Y.enterocolitica PCR Stool Vibrio (PCR) Stl Vibrio cholerae PCR Stl Norovirus GI/GII PCR Stl GI Panel (PCR) Com 3 05/14/18 05/13/18 05/13/18 01:18 17:19 11:23 WBC RBC Hgb Hct MCV MCH MCHC RDW Plt Count MPV Immature Gran % Seg Neutrophils % Lymphocytes % Monocytes % Eosinophils % Basophils % Neutrophils # Lymphocytes # Monocytes # Eosinophils # Basophils # Immature Plt Fraction Sodium Potassium Chloride Carbon Dioxide BUN Creatinine Est GFR ( Amer) Est GFR (Non-Af Amer) BUN/Creatinine Ratio Glucose POC Glucose 103 H 115 H 140 H Calculated Osmolality Calcium Phosphorus Magnesium Total Bilirubin Direct Bilirubin Indirect Bilirubin AST ALT Alkaline Phosphatase Lactate Dehydrogenase Serum Total Protein Albumin Globulin Albumin/Globulin Ratio Carcinoembryonic Ag CA 125 Ag Serial Mntr Fl Pathologist Review Fluid Triglyceride Source Fluid Triglycerides Pleural Fluid Volume Pleural Appearance Pleural pH Pleural RBC Pleural Tot Nuc Cell Pleural Neutrophils Pleural Band Neuts Pleural Eosinophils Pleural Basophils Pleural Lymphocytes % Pleural Monocytes % Pleural Other Cells % Pleural Total Protein Pleural LDH Pleural Glucose Stool Occult Blood Stl C. cayetanensis PCR Stool Rotavirus A PCR Stl Adenov F 40/41 PCR Stool Astrovirus (PCR) Stool Campylobacter PCR Stl C. diff Tox B Gene Stl C. diff Tox A/B PCR Stool Cryptosporidium PCR Stl Sh Tox Pr E STEC PCR Stool E coli O157 PCR Stl Enterotoxigenic E PCR Stool EPEC (PCR) Stool EAEC (PCR) Stl E. histolytica PCR Stool Giardia Lamblia PCR Stool Salmonella PCR Stool Sapovirus (PCR) Stl P. shigelloides PCR Stl Shigella/EIEC PCR St Y.enterocolitica PCR Stool Vibrio (PCR) Stl Vibrio cholerae PCR Stl Norovirus GI/GII PCR Stl GI Panel (PCR) Com 3 05/13/18 05/13/18 05/12/18 04:15 04:15 23:31 WBC 15.8 H D RBC 4.60 Hgb 13.3 D Hct 39.5 MCV 85.9 MCH 28.9 MCHC 33.7 RDW 14.5 Plt Count 242 MPV 11.6 Immature Gran % 0.6 Seg Neutrophils % 77.0 Lymphocytes % 10.1 Monocytes % 12.0 Eosinophils % 0.0 Basophils % 0.3 Neutrophils # 12.2 H Lymphocytes # 1.6 Monocytes # 1.9 H Eosinophils # 0.0 Basophils # 0.1 Immature Plt Fraction Sodium 132 L Potassium 4.4 Chloride 104 Carbon Dioxide 22 L BUN 11 Creatinine 0.51 L Est GFR ( Amer) > 60 Est GFR (Non-Af Amer) > 60 BUN/Creatinine Ratio 22 Glucose 133 H POC Glucose 137 H Calculated Osmolality 275 L Calcium 8.2 L Phosphorus Magnesium Total Bilirubin Direct Bilirubin Indirect Bilirubin AST ALT Alkaline Phosphatase Lactate Dehydrogenase Serum Total Protein Albumin Globulin Albumin/Globulin Ratio Carcinoembryonic Ag CA 125 Ag Serial Mntr Fl Pathologist Review Fluid Triglyceride Source Fluid Triglycerides Pleural Fluid Volume Pleural Appearance Pleural pH Pleural RBC Pleural Tot Nuc Cell Pleural Neutrophils Pleural Band Neuts Pleural Eosinophils Pleural Basophils Pleural Lymphocytes % Pleural Monocytes % Pleural Other Cells % Pleural Total Protein Pleural LDH Pleural Glucose Stool Occult Blood Stl C. cayetanensis PCR Stool Rotavirus A PCR Stl Adenov F 40 PCR Stool Astrovirus (PCR) Stool Campylobacter PCR Stl C. diff Tox B Gene Stl C. diff Tox A/B PCR Stool Cryptosporidium PCR Stl Sh Tox Pr E STEC PCR Stool E coli O157 PCR Stl Enterotoxigenic E PCR Stool EPEC (PCR) Stool EAEC (PCR) Stl E. histolytica PCR Stool Giardia Lamblia PCR Stool Salmonella PCR Stool Sapovirus (PCR) Stl P. shigelloides PCR Stl Shigella/EIEC PCR St Y.enterocolitica PCR Stool Vibrio (PCR) Stl Vibrio cholerae PCR Stl Norovirus GI/GII PCR Stl GI Panel (PCR) Com 3 05/12/18 05/12/18 05/12/18 11:41 09:41 05:42 WBC RBC Hgb Hct MCV MCH MCHC RDW Plt Count MPV Immature Gran % Seg Neutrophils % Lymphocytes % Monocytes % Eosinophils % Basophils % Neutrophils # Lymphocytes # Monocytes # Eosinophils # Basophils # Immature Plt Fraction Sodium 134 L Potassium 4.4 Chloride 102 Carbon Dioxide 23 BUN 15 Creatinine 0.68 Est GFR ( Amer) > 60 Est GFR (Non-Af Amer) > 60 BUN/Creatinine Ratio 22 Glucose 158 H POC Glucose 190 H 156 H Calculated Osmolality 282 Calcium 8.5 L Phosphorus Magnesium Total Bilirubin Direct Bilirubin Indirect Bilirubin AST ALT Alkaline Phosphatase Lactate Dehydrogenase Serum Total Protein Albumin Globulin Albumin/Globulin Ratio Carcinoembryonic Ag CA 125 Ag Serial Mntr Fl Pathologist Review Fluid Triglyceride Source Fluid Triglycerides Pleural Fluid Volume Pleural Appearance Pleural pH Pleural RBC Pleural Tot Nuc Cell Pleural Neutrophils Pleural Band Neuts Pleural Eosinophils Pleural Basophils Pleural Lymphocytes % Pleural Monocytes % Pleural Other Cells % Pleural Total Protein Pleural LDH Pleural Glucose Stool Occult Blood Stl C. cayetanensis PCR Stool Rotavirus A PCR Stl Adenov F 40/ PCR Stool Astrovirus (PCR) Stool Campylobacter PCR Stl C. diff Tox B Gene Stl C. diff Tox A/B PCR Stool Cryptosporidium PCR Stl Sh Tox Pr E STEC PCR Stool E coli O157 PCR Stl Enterotoxigenic E PCR Stool EPEC (PCR) Stool EAEC (PCR) Stl E. histolytica PCR Stool Giardia Lamblia PCR Stool Salmonella PCR Stool Sapovirus (PCR) Stl P. shigelloides PCR Stl Shigella/EIEC PCR St Y.enterocolitica PCR Stool Vibrio (PCR) Stl Vibrio cholerae PCR Stl Norovirus GI/GII PCR Stl GI Panel (PCR) Com 3 05/12/18 05/11/18 05/11/18 00:34 13:10 13:10 WBC RBC Hgb Hct MCV MCH MCHC RDW Plt Count MPV Immature Gran % Seg Neutrophils % Lymphocytes % Monocytes % Eosinophils % Basophils % Neutrophils # Lymphocytes # Monocytes # Eosinophils # Basophils # Immature Plt Fraction Sodium Potassium Chloride Carbon Dioxide BUN Creatinine Est GFR ( Amer) Est GFR (Non-Af Amer) BUN/Creatinine Ratio Glucose POC Glucose 165 H Calculated Osmolality Calcium Phosphorus Magnesium Total Bilirubin Direct Bilirubin Indirect Bilirubin AST ALT Alkaline Phosphatase Lactate Dehydrogenase Serum Total Protein Albumin Globulin Albumin/Globulin Ratio Carcinoembryonic Ag CA 125 Ag Serial Mntr Fl Pathologist Review Fluid Triglyceride Source Fluid Triglycerides Pleural Fluid Volume Pleural Appearance Pleural pH Pleural RBC Pleural Tot Nuc Cell Pleural Neutrophils Pleural Band Neuts Pleural Eosinophils Pleural Basophils Pleural Lymphocytes % Pleural Monocytes % Pleural Other Cells % Pleural Total Protein Pleural LDH Pleural Glucose Stool Occult Blood Positive A Stl C. cayetanensis PCR Stool Rotavirus A PCR Stl Adenov F 40/ PCR Stool Astrovirus (PCR) Stool Campylobacter PCR Stl C. diff Tox B Gene Positive A Stl C. diff Tox A/B PCR Stool Cryptosporidium PCR Stl Sh Tox Pr E STEC PCR Stool E coli O157 PCR Stl Enterotoxigenic E PCR Stool EPEC (PCR) Stool EAEC (PCR) Stl E. histolytica PCR Stool Giardia Lamblia PCR Stool Salmonella PCR Stool Sapovirus (PCR) Stl P. shigelloides PCR Stl Shigella/EIEC PCR St Y.enterocolitica PCR Stool Vibrio (PCR) Stl Vibrio cholerae PCR Stl Norovirus GI/GII PCR Stl GI Panel (PCR) Com 3 05/11/18 05/11/18 05/11/18 13:10 11:23 10:20 WBC RBC Hgb Hct MCV MCH MCHC RDW Plt Count MPV Immature Gran % Seg Neutrophils % Lymphocytes % Monocytes % Eosinophils % Basophils % Neutrophils # Lymphocytes # Monocytes # Eosinophils # Basophils # Immature Plt Fraction Sodium Potassium Chloride Carbon Dioxide BUN Creatinine Est GFR ( Amer) Est GFR (Non-Af Amer) BUN/Creatinine Ratio Glucose POC Glucose 108 H Calculated Osmolality Calcium Phosphorus Magnesium Total Bilirubin Direct Bilirubin Indirect Bilirubin AST ALT Alkaline Phosphatase Lactate Dehydrogenase Serum Total Protein Albumin Globulin Albumin/Globulin Ratio Carcinoembryonic Ag CA 125 Ag Serial Mntr Fl Pathologist Review Fluid Triglyceride Source PLEURAL FLUID Fluid Triglycerides 34 Pleural Fluid Volume Pleural Appearance Pleural pH Pleural RBC Pleural Tot Nuc Cell Pleural Neutrophils Pleural Band Neuts Pleural Eosinophils Pleural Basophils Pleural Lymphocytes % Pleural Monocytes % Pleural Other Cells % Pleural Total Protein Pleural LDH Pleural Glucose Stool Occult Blood Stl C. cayetanensis PCR Not detected Stool Rotavirus A PCR Not detected Stl Adenov F 40/41 PCR Not detected Stool Astrovirus (PCR) Not detected Stool Campylobacter PCR Not detected Stl C. diff Tox B Gene Stl C. diff Tox A/B PCR See reflex test A Stool Cryptosporidium PCR Not detected Stl Sh Tox Pr E STEC PCR Not detected Stool E coli O157 PCR Not detected Stl Enterotoxigenic E PCR Not detected Stool EPEC (PCR) Not detected Stool EAEC (PCR) Not detected Stl E. histolytica PCR Not detected Stool Giardia Lamblia PCR Not detected Stool Salmonella PCR Not detected Stool Sapovirus (PCR) Not detected Stl P. shigelloides PCR Not detected Stl Shigella/EIEC PCR Not detected St Y.enterocolitica PCR Not detected Stool Vibrio (PCR) Not detected Stl Vibrio cholerae PCR Not detected Stl Norovirus GI/GII PCR Not detected Stl GI Panel (PCR) Com See below 3 05/11/18 05/11/18 05/11/18 10:20 10:20 10:20 WBC RBC Hgb Hct MCV MCH MCHC RDW Plt Count MPV Immature Gran % Seg Neutrophils % Lymphocytes % Monocytes % Eosinophils % Basophils % Neutrophils # Lymphocytes # Monocytes # Eosinophils # Basophils # Immature Plt Fraction Sodium Potassium Chloride Carbon Dioxide BUN Creatinine Est GFR ( Amer) Est GFR (Non-Af Amer) BUN/Creatinine Ratio Glucose POC Glucose Calculated Osmolality Calcium Phosphorus Magnesium Total Bilirubin Direct Bilirubin Indirect Bilirubin AST ALT Alkaline Phosphatase Lactate Dehydrogenase Serum Total Protein Albumin Globulin Albumin/Globulin Ratio Carcinoembryonic Ag CA 125 Ag Serial Mntr Fl Pathologist Review See below Fluid Triglyceride Source Fluid Triglycerides Pleural Fluid Volume 550.0 Pleural Appearance Hazy A Pleural pH 8.00 Pleural RBC 0.005 H Pleural Tot Nuc Cell 6416 H Pleural Neutrophils 6.0 Pleural Band Neuts Test Not Performed Pleural Eosinophils Test Not Performed Pleural Basophils Test Not Performed Pleural Lymphocytes % 94.0 Pleural Monocytes % Test Not Performed Pleural Other Cells % Test Not Performed Pleural Total Protein 3.8 Pleural LDH 131 Pleural Glucose 93 Stool Occult Blood Stl C. cayetanensis PCR Stool Rotavirus A PCR Stl Adenov F 40/41 PCR Stool Astrovirus (PCR) Stool Campylobacter PCR Stl C. diff Tox B Gene Stl C. diff Tox A/B PCR Stool Cryptosporidium PCR Stl Sh Tox Pr E STEC PCR Stool E coli O157 PCR Stl Enterotoxigenic E PCR Stool EPEC (PCR) Stool EAEC (PCR) Stl E. histolytica PCR Stool Giardia Lamblia PCR Stool Salmonella PCR Stool Sapovirus (PCR) Stl P. shigelloides PCR Stl Shigella/EIEC PCR St Y.enterocolitica PCR Stool Vibrio (PCR) Stl Vibrio cholerae PCR Stl Norovirus GI/GII PCR Stl GI Panel (PCR) Com 3 05/11/18 05/11/18 05/11/18 05:15 03:41 03:41 WBC RBC Hgb Hct MCV MCH MCHC RDW Plt Count MPV Immature Gran % Seg Neutrophils % Lymphocytes % Monocytes % Eosinophils % Basophils % Neutrophils # Lymphocytes # Monocytes # Eosinophils # Basophils # Immature Plt Fraction Sodium 134 L Potassium 3.2 L Chloride 100 Carbon Dioxide 26 BUN 13 Creatinine 0.68 Est GFR ( Amer) > 60 Est GFR (Non-Af Amer) > 60 BUN/Creatinine Ratio 19 Glucose 94 POC Glucose 103 H Calculated Osmolality 278 L Calcium 8.6 Phosphorus Magnesium 2.0 Total Bilirubin Direct Bilirubin Indirect Bilirubin AST ALT Alkaline Phosphatase Lactate Dehydrogenase 126 L Serum Total Protein Albumin 3.3 L Globulin Albumin/Globulin Ratio Carcinoembryonic Ag 5.5 H CA 125 Ag Serial Mntr Fl Pathologist Review Fluid Triglyceride Source Fluid Triglycerides Pleural Fluid Volume Pleural Appearance Pleural pH Pleural RBC Pleural Tot Nuc Cell Pleural Neutrophils Pleural Band Neuts Pleural Eosinophils Pleural Basophils Pleural Lymphocytes % Pleural Monocytes % Pleural Other Cells % Pleural Total Protein Pleural LDH Pleural Glucose Stool Occult Blood Stl C. cayetanensis PCR Stool Rotavirus A PCR Stl Adenov F 40/41 PCR Stool Astrovirus (PCR) Stool Campylobacter PCR Stl C. diff Tox B Gene Stl C. diff Tox A/B PCR Stool Cryptosporidium PCR Stl Sh Tox Pr E STEC PCR Stool E coli O157 PCR Stl Enterotoxigenic E PCR Stool EPEC (PCR) Stool EAEC (PCR) Stl E. histolytica PCR Stool Giardia Lamblia PCR Stool Salmonella PCR Stool Sapovirus (PCR) Stl P. shigelloides PCR Stl Shigella/EIEC PCR St Y.enterocolitica PCR Stool Vibrio (PCR) Stl Vibrio cholerae PCR Stl Norovirus GI/GII PCR Stl GI Panel (PCR) Com 3 05/11/18 03:41 WBC 8.6 RBC 4.95 Hgb 14.8 Hct 42.8 MCV 86.5 MCH 29.9 MCHC 34.6 RDW 14.0 Plt Count 278 MPV 10.8 Immature Gran % 1.5 Seg Neutrophils % 51.9 Lymphocytes % 31.8 Monocytes % 12.4 Eosinophils % 1.8 Basophils % 0.6 Neutrophils # 4.4 Lymphocytes # 2.7 Monocytes # 1.1 Eosinophils # 0.2 Basophils # 0.1 Immature Plt Fraction 7.6 H Sodium Potassium Chloride Carbon Dioxide BUN Creatinine Est GFR ( Amer) Est GFR (Non-Af Amer) BUN/Creatinine Ratio Glucose POC Glucose Calculated Osmolality Calcium Phosphorus Magnesium Total Bilirubin Direct Bilirubin Indirect Bilirubin AST ALT Alkaline Phosphatase Lactate Dehydrogenase Serum Total Protein Albumin Globulin Albumin/Globulin Ratio Carcinoembryonic Ag CA 125 Ag Serial Mntr Fl Pathologist Review Fluid Triglyceride Source Fluid Triglycerides Pleural Fluid Volume Pleural Appearance Pleural pH Pleural RBC Pleural Tot Nuc Cell Pleural Neutrophils Pleural Band Neuts Pleural Eosinophils Pleural Basophils Pleural Lymphocytes % Pleural Monocytes % Pleural Other Cells % Pleural Total Protein Pleural LDH Pleural Glucose Stool Occult Blood Stl C. cayetanensis PCR Stool Rotavirus A PCR Stl Adenov F 40/41 PCR Stool Astrovirus (PCR) Stool Campylobacter PCR Stl C. diff Tox B Gene Stl C. diff Tox A/B PCR Stool Cryptosporidium PCR Stl Sh Tox Pr E STEC PCR Stool E coli O157 PCR Stl Enterotoxigenic E PCR Stool EPEC (PCR) Stool EAEC (PCR) Stl E. histolytica PCR Stool Giardia Lamblia PCR Stool Salmonella PCR Stool Sapovirus (PCR) Stl P. shigelloides PCR Stl Shigella/EIEC PCR St Y.enterocolitica PCR Stool Vibrio (PCR) Stl Vibrio cholerae PCR Stl Norovirus GI/GII PCR Stl GI Panel (PCR) Com - Attending Attestation 1. Peritoneal carcinomatosis. CT abdomen and pelvis showed several Peritoneal deposits with mild to moderate ascites. Largest near cecum. She has been symptomatic with weight loss and abdominal distention for last 3 months. Initially constipation but lately diarrhea. She is tested positive for C. difficile toxin 05/11/2018 EGD and colonoscopy 04/04/2018 showed reflux gastritis and some due adenopathy. Colon Prep was and poor procedure aborted She had exploratory laparotomy by Dr. Jordan during this admission. Balder resection could not be performed and diverting loop ileostomy performed. CEA 5.5. CEA 125 mildly elevated at 163. CA-19-9 pending. CBC unremarkable with mildly elevated neutrophil count 11,000 She had previous hysterectomy with both ovaries removed. Still primary per peroneal carcinomas in the differential. We will await pathology results. Further treatment recommendation after that CT chest on 05/15/2018 showed left pleural effusion and she had thoracentesis. Cytology negative for malignancy. She had some pleural nodularity suspicious for metastasis. Also 1.3 cm right lung nodule
[2018-05-15] MEDS: MetroNIDAZOLE 500 MG/100 ML 500 MG/100 ML BAG IVPB SCH ×4 (00:10→23:51)
[2018-05-15] MEDS: *HR* Heparin 5,000 UNIT/ML VIAL SQ SCH ×5 (00:10→23:53)
[2018-05-15] MEDS: D5% in 0.45% NACL w KCl 20 MEQ/1,000 ML MLS IVC SCH ×2 (02:13→04:08)
[2018-05-15 04:46] LABS: Basophils # 0.1 K/mcL (0.0-0.2); Basophils % 0.3 %; Eosinophils # 0.1 K/mcL (0.0-0.6); Eosinophils % 0.9 %; Hematocrit 38.1 % (35.3-44.9); Hemoglobin 12.9 g/dL (11.5-15.4); Immature Granulocytes % 0.5 % (0-4); Lymphocytes # 1.7 K/mcL (0.6-4.6); Lymphocytes % 11.3 %; Mean Corpuscular HGB Conc 33.9 g/dL (31.6-35.5); Mean Corpuscular Hemoglobin 28.9 pg (28.0-33.3); Mean Corpuscular Volume 85.2 fL (83.0-100.0); Mean Platelet Volume 10.9 fL (9.4-12.4); Monocytes # 1.3 K/mcL (0.0-1.3); Monocytes % 8.7 %; Neutrophils # 11.5 K/mcL (1.6-8.9); Platelet Count 289 K/mcL (140-400); Red Blood Count 4.47 M/mcL (3.82-4.97); Red Cell Distribution Width 14.5 % (11.5-14.5); Segmented Neutrophils % 78.3 %
[2018-05-15 05:04] LABS: BUN/Creatinine Ratio 22 (6-26); Blood Urea Nitrogen 11 mg/dL (6-20); Calcium 8.5 mg/dL (8.6-10.3); Carbon Dioxide 25 mEq/L (23-29); Chloride 102 mEq/L (98-107); Glucose 127 mg/dL (70-105); Magnesium 1.9 mg/dL (1.6-2.6); Osmolality,Calculated 275 (280-300); Phosphorous 3.3 mg/dL (2.7-4.5); Potassium 4.3 mEq/L (3.5-5.1); Sodium 132 mEq/L (136-145); eGFR For Non-African Americans > 60 (> 60)
--- NOTE | 2018-05-15 07:35 | General Surgery Progress Note ---
<Artur Danielle R - Last Filed: 05/15/18 08:07> Date of Encounter: 05/15/18 Time of Encounter: 07:33 - Assessment and Plan (1) Abdominal carcinomatosis Current Visit: Yes Status: Acute POD #4 s/p 1. exploratory laparotomy 2. excisional biopsy peritoneal wall lesion 3. diverting loop ileostomy with Dr. 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 difficile colitis Current Visit: Yes Status: Acute Continue metronidazole (3) DVT prophylaxis Current Visit: Yes Status: Acute Heparin SQ 5000 units Q8H Ambulation TID Subjective Patient reports: no new complaints, pain is less, flatus, bowel movement ( colostomy), afebrile Narrative: Patient reports feeling much better today. Less pain, and more energy. Objective Vital Signs - Last 8 Hours Temp Pulse Resp BP Pulse Ox 05/15/18 04:57 98.1 F 107 16 113/78 94 05/14/18 23:54 99.6 F 108 18 118/83 94 Intake and Output 05/14/18 05/14/18 05/15/18 15:59 23:59 07:59 Intake Total 1100 / 1100 800 / 800 1100 / 1100 Output Total 1450 / 1450 1000 / 1000 525 / 525 Balance -350 / -350 -200 / -200 575 / 575 Intake: IV Fluids 1100 / 1100 800 / 800 1100 / 1100 KCl 20mEq IN D5%-0.45 NACL 20 1000 / 1000 1000 / 1000 meq In 1,000 ml @ 100 mls/hr IVC .Q10H DAO Rx#:[id number] Flagyl Premix 500 MG/100 ML 500 100 / 100 100 / 100 100 / 100 mg In 100 ml @ 100 mls/hr IVPB Q8HR DAO Rx#:[id number] Oral 0 / 0 0 / 0 0 / 0 Output: Stool 1100 / 1100 200 / 200 0 / 0 Catheter 0 / 0 250 / 250 225 / 225 Gastric Drainage 350 / 350 550 / 550 300 / 300 Other: Meal NPO LUNCH NPO DINNER Percent of Meal Consumed 0% Weight 84.4 kg Blood Glucose* 146 127 Patient Weight 05/15/18 23:59 Weight 84.4 kg - General physical appearance well nourished, no distress - Eyes PERRL, normal ocular movement - ENT normal mucosa, atraumatic, normocephalic - Neck Neck exam: trachea midline, no venous distension - Respiratory normal expansion, normal respiratory effort - Cardiovascular Cardiovascular exam: Present: tachycardia - Abdomen Abdomen: Present: soft, tender (expected post surgical tenderness), wound (2300 mL ouput of NG yesterday, ). Absent: bowel sounds present, distended, guarding - Incision Incision: Present: clean and dry, intact (surgical hollis present and intact) - Integumentary no rash - Neurologic CN 2-12 grossly intact - Musculoskeletal normal posture - Psychiatric oriented to time, oriented to person, oriented to place, speech is normal, memory intact - Labs 05/15/18 04:08 05/15/18 04:08 Diabetes panel 05/14/18 05/15/18 Range/Units 04:18 04:08 Sodium 131 L 132 L (136-145) mEq/L Potassium 4.2 4.3 (3.5-5.1) mEq/L Chloride 102 102 (98-107) mEq/L Carbon Dioxide 23 25 (23-29) mEq/L BUN 10 11 (6-20) mg/dL Creatinine 0.44 L 0.50 L (0.60-1.20) mg/dL Glucose 125 H 127 H (70-105) mg/dL Calcium 8.6 8.5 L (8.6-10.3) mg/dL AST 11 L (13-39) Units/L ALT 7 (7-52) Units/L Alkaline Phosphatase 50 (34-104) Units/L Albumin 2.9 L (3.5-5.7) g/dL Calcium panel 05/14/18 05/15/18 Range/Units 04:18 04:08 Calcium 8.6 8.5 L (8.6-10.3) mg/dL Phosphorus 3.3 (2.7-4.5) mg/dL Albumin 2.9 L (3.5-5.7) g/dL Pituitary panel 05/14/18 05/15/18 Range/Units 04:18 04:08 Sodium 131 L 132 L (136-145) mEq/L Potassium 4.2 4.3 (3.5-5.1) mEq/L Chloride 102 102 (98-107) mEq/L Carbon Dioxide 23 25 (23-29) mEq/L BUN 10 11 (6-20) mg/dL Creatinine 0.44 L 0.50 L (0.60-1.20) mg/dL Glucose 125 H 127 H (70-105) mg/dL Calcium 8.6 8.5 L (8.6-10.3) mg/dL Adrenal panel 05/14/18 05/15/18 Range/Units 04:18 04:08 Sodium 131 L 132 L (136-145) mEq/L Potassium 4.2 4.3 (3.5-5.1) mEq/L Chloride 102 102 (98-107) mEq/L Carbon Dioxide 23 25 (23-29) mEq/L BUN 10 11 (6-20) mg/dL Creatinine 0.44 L 0.50 L (0.60-1.20) mg/dL Glucose 125 H 127 H (70-105) mg/dL Calcium 8.6 8.5 L (8.6-10.3) mg/dL Total Bilirubin 0.4 (0.3-1.0) mg/dL AST 11 L (13-39) Units/L ALT 7 (7-52) Units/L Alkaline Phosphatase 50 (34-104) Units/L Albumin 2.9 L (3.5-5.7) g/dL Consult Discharge Plan - Plan Referrals: Shae Russell, MIMI [Primary Care Provider] - <Matthew Jordan - Last Filed: 05/15/18 20:04> Date of Encounter: 05/15/18 - Assessment and Plan (1) Abdominal pain Current Visit: Yes Status: Acute Qualifiers: Abdominal location: generalized Qualified Code(s): R10.84 - Generalized abdominal pain Objective Vital Signs - Last 8 Hours Temp Pulse Resp BP Pulse Ox 05/15/18 18:58 98.8 F 102 16 130/86 93 Intake and Output 05/15/18 05/15/18 05/15/18 07:59 15:59 23:59 Intake Total 1100 / 1100 100 / 100 0 / 0 Output Total 525 / 525 500 / 500 0 / 0 Balance 575 / 575 -400 / -400 0 / 0 Intake: IV Fluids 1100 / 1100 100 / 100 KCl 20mEq IN D5%-0.45 NACL 20 1000 / 1000 meq In 1,000 ml @ 100 mls/hr IVC .Q10H DAO Rx#:[id number] Flagyl Premix 500 MG/100 ML 500 100 / 100 100 / 100 mg In 100 ml @ 100 mls/hr IVPB Q8HR DAO Rx#:[id number] Oral 0 / 0 0 / 0 Output: Urine 0 / 0 Stool 0 / 0 200 / 200 Catheter 225 / 225 Gastric Drainage 300 / 300 300 / 300 Other: Meal npo NPO Stool Consistency liquid Stool Color Brown Weight 84.4 kg Blood Glucose* 93 Patient Weight 05/15/18 23:59 Weight 84.4 kg - Labs 05/15/18 04:08 05/15/18 04:08 Diabetes panel 05/15/18 Range/Units 04:08 Sodium 132 L (136-145) mEq/L Potassium 4.3 (3.5-5.1) mEq/L Chloride 102 (98-107) mEq/L Carbon Dioxide 25 (23-29) mEq/L BUN 11 (6-20) mg/dL Creatinine 0.50 L (0.60-1.20) mg/dL Glucose 127 H (70-105) mg/dL Calcium 8.5 L (8.6-10.3) mg/dL Calcium panel 05/15/18 Range/Units 04:08 Calcium 8.5 L (8.6-10.3) mg/dL Phosphorus 3.3 (2.7-4.5) mg/dL Pituitary panel 05/15/18 Range/Units 04:08 Sodium 132 L (136-145) mEq/L Potassium 4.3 (3.5-5.1) mEq/L Chloride 102 (98-107) mEq/L Carbon Dioxide 25 (23-29) mEq/L BUN 11 (6-20) mg/dL Creatinine 0.50 L (0.60-1.20) mg/dL Glucose 127 H (70-105) mg/dL Calcium 8.5 L (8.6-10.3) mg/dL Adrenal panel 09/18/18 Range/Units 04:08 Sodium 132 L (136-145) mEq/L Potassium 4.3 (3.5-5.1) mEq/L Chloride 102 (98-107) mEq/L Carbon Dioxide 25 (23-29) mEq/L BUN 11 (6-20) mg/dL Creatinine 0.50 L (0.60-1.20) mg/dL Glucose 127 H (70-105) mg/dL Calcium 8.5 L (8.6-10.3) mg/dL - Attending Attestation patient seen and examined. i have reviewed all labs, imaging, and notes; i agree with the above assessment and plan and wish to add the following... 300cc from NG all day ostomy functioning d/c dozier d.c ng tube start sips of clears follow up pathology appreciate oncology and palliative care recs
--- NOTE | 2018-05-15 08:18 | Internal Med Progress Note ---
<Alfonso Hernandez - Last Filed: 05/15/18 12:40> Hospitalist Progress Note - Encounter Date of Encounter: 05/15/18 - Exam Vitals: Temp Pulse Resp BP Pulse Ox 98.1 F 116 12 116/88 95 05/15/18 11:31 05/15/18 11:31 05/15/18 11:31 05/15/18 11:31 05/15/18 11:31 - Assessment and Plan (1) Pleural effusion Current Visit: Yes Status: Acute (2) Anxiety and depression Current Visit: Yes Status: Chronic (3) DVT prophylaxis Current Visit: Yes Status: Acute (4) Abdominal pain Current Visit: Yes Status: Acute (5) C. difficile colitis Current Visit: Yes Status: Acute (6) Hypokalemia Current Visit: Yes Status: Resolved (7) Tobacco abuse Current Visit: Yes Status: Chronic (8) Colonic mass Current Visit: Yes Status: Acute - Time Spent with Patient Total time spent is greater than 50% in coordination of care (as documented) at patient's floor/unit and/or counseling patient: Internal Medicine: Result - Labs CBC & Chem 7: 05/15/18 04:08 05/15/18 04:08 Labs: Short CBC 05/15/18 Range/Units 04:08 WBC 14.7 H (4.3-11.1) K/mcL Hgb 12.9 (11.5-15.4) g/dL Hct 38.1 (35.3-44.9) % Plt Count 289 (140-400) K/mcL Neutrophils # 11.5 H (1.6-8.9) K/mcL BMP 05/15/18 04:08 Sodium 132 L Potassium 4.3 Chloride 102 Carbon Dioxide 25 BUN 11 Creatinine 0.50 L Glucose 127 H Calcium 8.5 L Consult Discharge Plan - Plan Referrals: Shae Russell, CODING MACHINE OPERATOR [Primary Care Provider] - - Attending Attestation I examined this patient and my medical decision-making was reviewed with the Resident Physician on 05/15/18. I agree with the documented findings, disposition and treatment plan as described except to the extent set forth below. Ms Warren is currently admitted for abd pain due to colonic mass s/p exp lap and pleural effusion. She remains moderate to high risk due to potential for worsening clinical status. Ms Warren is up in chair. She is feeling somewhat better but anxious. Pain is controlled. No fever or chills. Not passing gas yet but feels rumbling in abdomen. Exam alert comfortable up in chair. Mucus membranes dry Not tachy now Abd dressing intact No wheeze No edema I/P 1. Pleural effusion - path negative at this time 2. Colon mass - path pending. 3. Will need to address nutrition if not allowed to eat soon. Further diagnoses and plan as above. <Nicholas Edwards - Last Filed: 05/15/18 18:04> Hospitalist Progress Note - Encounter Date of Encounter: 05/15/18 Time of Encounter: 10:35 - Subjective Interval History: Patient is no acute distress as of this AM. Has adequate pain control with the WELLNESS EDUCATOR pump. Denies any worsening abdominal pain, fever, chills, shortness of breath. Has faint bowel sounds. There is liquid stool in colostomy bag, NG tube has 300 mL output in the last 6 hrs. Patient is NPO and will likely be getting some form of nutrition very soon to help with the healing process. - Exam Vitals: Temp Pulse Resp BP Pulse Ox 98.1 F 107 16 113/78 94 05/15/18 04:57 05/15/18 04:57 05/15/18 04:57 05/15/18 04:57 05/15/18 04:57 Exam: General: pleasant, without distress HEENT: Head atraumatic, normocephalic, Moist Mucous Membranes, uvula midline Neck: nontender to palpation, absent lymphadenopathy, Cardiovascualr: Regular rate and rhythm with no murmur, absent gallops or rubs, absent pedal edema Lungs: Clear to auscultation bilaterally, not in respiratory distress Abdomen: Soft distendend, post surgical tenderness diffusely , faint BS present , currently on WELLNESS EDUCATOR pump for pain control Skin: warm and dry, absent rash, absent open wounds and nodules MSK: absent clubbing, cyanosis, joints without swelling Neuro: Cranial nerves II through XII intact, UE and LE sensation equal bilaterally, UE and LEstrength 5/5, alert oriented 3, Psych: good insight and judgment - Assessment and Plan (1) Abdominal pain Current Visit: Yes Status: Acute Assessment and Plan: - Due to malignancy with peritoneal wall lesions. Patient has CEA of 5.5. Curently POD #4 with excisional biopsy of peritoneal wall and diverting loop ileostomy - on WELLNESS EDUCATOR pump for post operative pain control, switch to sublingual oxycodone tomorrow - faint BS present - oncology consulted. -Daily wound care and colostomy management. NG 300 mL output last 6 hours -Surgery following, Surgical specimen pathology pending, CA 125 pending (2) Pleural effusion Current Visit: Yes Status: Acute Assessment and Plan: -likely due to malignancy, patient had an elevated CEA. -Patient CT chest was positive for small residual pleural effusion on the left side. -She is day 4 s/ p thoracentesis. The pleural fluid is found to be exudative in nature. Patient denies any shortness of breath chest pain. - Continue to monitor, CTA pending (3) C. difficile colitis Current Visit: Yes Status: Acute Assessment and Plan: - Her GI panel was positive for C. difficile colitis. -On day 5 of IV Flagyl. -Continue contact precautions. 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 On briefly talking to the mom, it seems to me that they would like to go to [facility] for further management. - Palliative care following (6) Back pain Current Visit: Yes Status: Chronic Assessment and Plan: - Patient has a history of chronic back pain. -Currently on WELLNESS EDUCATOR Dilaudid pump. We will consider transitioning to PO meds soon. (7) Anxiety and depression Current Visit: Yes Status: Chronic Assessment and Plan: -Patient has a history of anxiety and depression. -Continue home meds. DVT Prophylaxis: heparin SQ - Time Spent with Patient Total time spent is greater than 50% in coordination of care (as documented) at patient's floor/unit and/or counseling patient: Internal Medicine: Result - Labs CBC & Chem 7: 05/15/18 04:08 05/15/18 04:08 Labs: Short CBC 05/15/18 Range/Units 04:08 WBC 14.7 H (4.3-11.1) K/mcL Hgb 12.9 (11.5-15.4) g/dL Hct 38.1 (35.3-44.9) % Plt Count 289 (140-400) K/mcL Neutrophils # 11.5 H (1.6-8.9) K/mcL BMP 05/14/18 05/15/18 04:18 04:08 Sodium 131 L 132 L Potassium 4.2 4.3 Chloride 102 102 Carbon Dioxide 23 25 BUN 10 11 Creatinine 0.44 L 0.50 L Glucose 125 H 127 H Calcium 8.6 8.5 L Liver Function 05/14/18 Range/Units 04:18 Total Bilirubin 0.4 (0.3-1.0) mg/dL Direct Bilirubin 0.1 (0.0-0.2) mg/dL AST 11 L (13-39) Units/L ALT 7 (7-52) Units/L Alkaline Phosphatase 50 (34-104) Units/L Albumin 2.9 L (3.5-5.7) g/dL <Alfonso Hernandez - Last Filed: 05/15/18 12:40> (4) Abdominal pain Qualifiers: Abdominal location: generalized Qualified Code(s): R10.84 - Generalized abdominal pain <Nicholas Edwards - Last Filed: 05/15/18 18:04> (1) Abdominal pain Qualifiers: Abdominal location: generalized Qualified Code(s): R10.84 - Generalized abdominal pain (6) Back pain Qualifiers: Back pain location: back pain in unspecified location Chronicity: chronic Back pain laterality: unspecified Qualified Code(s): M54.9 - Dorsalgia, unspecified; G89.29 - Other chronic pain
--- NOTE | 2018-05-15 09:10 | Palliative Progress Note ---
Date of Encounter: 05/15/18 Time of Encounter: 08:45 - Assessment and plan (1) Anxiety and depression Current Visit: Yes Status: Chronic Assessment and plan: Patient reports anxiety controlled with home dose of Valium. Patient denies increased anxiety during assessment. (2) Abdominal pain Current Visit: Yes Status: Acute Assessment and plan: Patient reports abdominal pain controlled with AVIONICS SYSTEMS REPAIRER, continue. Qualifiers: Abdominal location: generalized Qualified Code(s): R10.84 - Generalized abdominal pain (3) Abdominal carcinomatosis Current Visit: Yes Status: Acute Assessment and plan: Patient plans to receive cancer treatment at the [facility], pending results of pathology. (4) Goals of care, counseling/discussion Current Visit: Yes Status: Acute Assessment and plan: Goals of care have been established. Symptoms controlled per primary team. Thank you for involving Palliative care team in care of your patient. Palliative care to sign off; please re-consult if needed. (5) Back pain Current Visit: Yes Status: Chronic Assessment and plan: Patient reports pain well controlled with AVIONICS SYSTEMS REPAIRER, reports has been moving more in bed and pain not as severe as normal. Qualifiers: Back pain location: back pain in unspecified location Chronicity: chronic Back pain laterality: unspecified Qualified Code(s): M54.9 - Dorsalgia, unspecified; G89.29 - Other chronic pain - Time Spent With Patient Total time spent is greater than 50% in coordination of care (as documented) at patient's floor/unit and/or counseling patient: less than 15 minutes - Subjective Interval history: Patient resting in bed upon arrival for assessment. Patient alert and oriented times 3. No family present at bedside. Patient denies dyspnea, nausea and vomiting. Patient reports anxiety controlled with Valium, same as home dose. Patient reports pain controlled with AVIONICS SYSTEMS REPAIRER pump; denies velez during assessment. Discussed with patient current care plan, patient reports per surgery discussion this morning to have NG tube removed and x-ray today. Per primary team, plan to continue ambulation and get home soon. Patient's family desires to bring patient to the [facility] in [place] for cancer treatment; patient agreeable. Discussed continued risk of complications; patient verbalized understanding. Appears in good spirits today, desires to rest some post assessment. - Constitutional Vitals: Abnormal lab results WBC 14.7 K/mcL (4.3-11.1) H 05/15/18 04:08 Neutrophils # 11.5 K/mcL (1.6-8.9) H 05/15/18 04:08 Immature Plt Fraction 7.6 % (1.1-6.1) H 05/11/18 03:41 Sodium 132 mEq/L (136-145) L 05/15/18 04:08 Creatinine 0.50 mg/dL (0.60-1.20) L 05/15/18 04:08 Glucose 127 mg/dL (70-105) H 05/15/18 04:08 POC Glucose 127 mg/dL (70-99) H 05/15/18 00:07 Calculated Osmolality 275 (280-300) L 05/15/18 04:08 Calcium 8.5 mg/dL (8.6-10.3) L 05/15/18 04:08 AST 11 Units/L (13-39) L 05/14/18 04:18 Lactate Dehydrogenase 126 Units/L (140-271) L 05/11/18 03:41 Serum Total Protein 5.4 g/dL (6.4-8.9) L 05/14/18 04:18 Albumin 2.9 g/dL (3.5-5.7) L 05/14/18 04:18 Carcinoembryonic Ag 5.5 ng/mL (Less than 5.0) H 05/11/18 03:41 Pleural Appearance Hazy (Clear) A 05/11/18 10:20 Pleural RBC 0.005 M/mcL (0.000-0.002) H 05/11/18 10:20 Pleural Tot Nuc Cell 6416 TNC/mcL (0-1000) H 05/11/18 10:20 Stool Occult Blood Positive (Negative) A 05/11/18 13:10 Stl C. diff Tox B Gene Positive (Negative) A 05/11/18 13:10 Stl C. diff Tox A/B PCR See reflex test (Not detect) A 05/11/18 13:10 General appearance: Present: cooperative, no acute distress - Head Head exam: Present: atraumatic, normal inspection - Eye Eye exam: Present: EOMI, normal appearance, PERRL. Absent: periorbital swelling , periorbital tenderness Pupils: Present: normal accommodation, PERRL - ENT ENT exam: Present: mucous membranes dry, normal external ear exam - Neck Neck exam: Present: full ROM, normal inspection - Respiratory Respiratory exam: Present: CTAB. Absent: accessory muscle use, respiratory distress - Cardiovascular Cardiovascular exam: Present: +S1, +S2 - GI/Abdominal GI/Abdominal exam: Present: diminished bowel sounds, soft, tenderness - Rectal Rectal exam: Present: deferred - Extremities Exam Extremities exam: Present: full ROM, normal capillary refill, normal inspection. Absent: calf tenderness, pedal edema - Back Exam Back exam: Present: full ROM, normal inspection - Neurological Exam Neurological exam: Present: alert, oriented X3, strengths equal and symetr throughout. Absent: altered - Psychiatric Psychiatric exam: Present: normal affect, normal mood - Skin Skin exam: Present: dry, pallor, warm Palliative Quality Palliative Quality: Screen for Code Status: Yes, Screen for Goals of Care: Yes, Screen for Pain: Yes, If Pain Regimen Started, Initiate Bowel Regimen: NA, Screen for Nausea/Vomitting: Yes Code Status: 05/10/18 20:16 Resuscitation Status: Active [RES] Routine Comment: Resuscitation Status: Full Code - Labs CBC & Chem 7: 05/15/18 04:08 05/15/18 04:08 Labs: Laboratory Results - last 24 hr 05/14/18 05/14/18 05/14/18 01:18 05:07 11:12 WBC RBC Hgb Hct MCV MCH MCHC RDW Plt Count MPV Immature Gran % Seg Neutrophils % Lymphocytes % Monocytes % Eosinophils % Basophils % Neutrophils # Lymphocytes # Monocytes # Eosinophils # Basophils # Sodium Potassium Chloride Carbon Dioxide BUN Creatinine Est GFR ( Amer) Est GFR (Non-Af Amer) BUN/Creatinine Ratio Glucose POC Glucose 103 H 113 H 146 H Calculated Osmolality Calcium Phosphorus Magnesium 05/15/18 05/15/18 05/15/18 00:07 04:08 04:08 WBC 14.7 H RBC 4.47 Hgb 12.9 Hct 38.1 MCV 85.2 MCH 28.9 MCHC 33.9 RDW 14.5 Plt Count 289 MPV 10.9 Immature Gran % 0.5 Seg Neutrophils % 78.3 Lymphocytes % 11.3 Monocytes % 8.7 Eosinophils % 0.9 Basophils % 0.3 Neutrophils # 11.5 H Lymphocytes # 1.7 Monocytes # 1.3 Eosinophils # 0.1 Basophils # 0.1 Sodium 132 L Potassium 4.3 Chloride 102 Carbon Dioxide 25 BUN 11 Creatinine 0.50 L Est GFR ( Amer) > 60 Est GFR (Non-Af Amer) > 60 BUN/Creatinine Ratio 22 Glucose 127 H POC Glucose 127 H Calculated Osmolality 275 L Calcium 8.5 L Phosphorus 3.3 Magnesium 1.9 Consult Discharge Plan - Plan Referrals: Shae Russell, HEAD ATHLETIC TRAINER/STRENGTH COACH [Primary Care Provider] -
[2018-05-15] MEDS: Pantoprazole 40 MG VIAL IVP SCH (09:29)
[2018-05-15] MEDS: Gabapentin 300 MG CAPSULE PO SCH ×3 (09:30→19:58)
[2018-05-15] MEDS: diazePAM 5 MG TABLET PO SCH ×3 (09:30→19:58)
[2018-05-15] MEDS ORDERED: OXYCODONE Oral CONC 10 MG/0.5 ML ORAL.SYG SL PRN (10:17)
[2018-05-15] MEDS ORDERED: Isovue-370 500 ML INFUS..BTL IV ONE (10:34)
[2018-05-15] MEDS: 0.9 % Sodium Chloride 1,000 ML IVC SCH ×2 (15:31→22:51)
[2018-05-15] MEDS ORDERED: 0.9 % Sodium Chloride 500 ML IVC ONE (18:53)
[2018-05-16 06:36] LABS: Basophils % 0.4 %; Eosinophils # 0.1 K/mcL (0.0-0.6); Eosinophils % 1.1 %; Hematocrit 37.6 % (35.3-44.9); Hemoglobin 12.8 g/dL (11.5-15.4); Immature Granulocytes % 0.7 % (0-4); Lymphocytes # 1.2 K/mcL (0.6-4.6); Lymphocytes % 10.9 %; Mean Corpuscular Volume 88.1 fL (83.0-100.0); Mean Platelet Volume 10.6 fL (9.4-12.4); Monocytes # 1.1 K/mcL (0.0-1.3); Monocytes % 9.9 %; Neutrophils # 8.8 K/mcL (1.6-8.9); Platelet Count 283 K/mcL (140-400); Red Blood Count 4.27 M/mcL (3.82-4.97); Red Cell Distribution Width 14.6 % (11.5-14.5)
[2018-05-16 06:45] LABS: BUN/Creatinine Ratio 18 (6-26); Blood Urea Nitrogen 9 mg/dL (6-20); Calcium 8.4 mg/dL (8.6-10.3); Carbon Dioxide 23 mEq/L (23-29); Chloride 102 mEq/L (98-107); Glucose 101 mg/dL (70-105); Osmolality,Calculated 273 (280-300); Sodium 132 mEq/L (136-145); eGFR For Non-African Americans > 60 (> 60)
--- NOTE | 2018-05-16 08:24 | General Surgery Progress Note ---
<Artur Danielle R - Last Filed: 05/16/18 08:22> Date of Encounter: 05/16/18 Time of Encounter: 07:30 - Assessment and Plan (1) Abdominal carcinomatosis Current Visit: Yes Status: Acute POD #5 s/p 1. exploratory laparotomy 2. excisional biopsy peritoneal wall lesion 3. diverting loop ileostomy with Dr. Jordan 05/11/2018 Patient is doing well, leukocytosis improving Post operative pain controlled with RADIO STATION OPERATOR Liquid stool in colostomy bag Plan: Will advance to clear liquid diet Full liquid diet at lunch if pt tolerates clears this am Comfort care and pain management Ambulation TID with assistance Incentive spirometry PPI/dvt prophylaxis Surgical pathology pending- oncology following Palliative consulted Daily wound care and ileostomy management (2) C. difficile colitis Current Visit: Yes Status: Acute Continue metronidazole (3) DVT prophylaxis Current Visit: Yes Status: Acute Heparin SQ 5000 units Q8H Ambulation TID Subjective Patient reports: no new complaints, still having pain, pain is less, tolerating liquids well, voiding w/o difficulty, diarrhea (loop ileostomy), afebrile Narrative: Reports tolerating limited clears without nausea or vomiting. Abdominal pain well controlled. Objective Vital Signs - Last 8 Hours Temp Pulse Resp BP Pulse Ox 05/16/18 06:43 97.6 F 92 14 134/93 96 05/16/18 03:55 99.1 F 97 16 144/87 95 Intake and Output 05/15/18 05/16/18 05/16/18 23:59 07:59 15:59 Intake Total 1160 / 1160 340 / 340 Output Total 325 / 325 150 / 150 Balance 835 / 835 190 / 190 Intake: IV Fluids 1100 / 1100 100 / 100 0.9 % Sodium Chloride 1,000 ML 1000 / 1000 @ 100 mls/hr IVC .Q10H [facility] Rx#: [id number] Flagyl Premix 500 MG/100 ML 500 100 / 100 100 / 100 mg In 100 ml @ 100 mls/hr IVPB Q8HR [facility] Rx#:[id number] Oral 60 / 60 240 / 240 Output: Urine 275 / 275 150 / 150 Stool 50 / 50 0 / 0 Other: Meal NPO Weight 84.1 kg Blood Glucose* 93 Patient Weight 05/16/18 23:59 Weight 84.1 kg - General physical appearance well nourished, no distress - Eyes normal ocular movement - ENT normal mucosa, atraumatic, normocephalic - Neck Neck exam: trachea midline, no venous distension - Respiratory normal expansion, normal respiratory effort - Cardiovascular Cardiovascular exam: Present: RRR - Abdomen Abdomen: Present: bowel sounds present, soft, tender (expected post surgical tenderness), wound (ileostomy with dark liquid stool and air) - Incision Incision: Present: clean and dry, intact - Integumentary no rash - Neurologic CN 2-12 grossly intact - Musculoskeletal normal posture - Psychiatric oriented to time, oriented to person, oriented to place, speech is normal, memory intact - Labs 05/16/18 05:53 05/16/18 05:53 Diabetes panel 05/16/18 Range/Units 05:53 Sodium 132 L (136-145) mEq/L Potassium 4.0 (3.5-5.1) mEq/L Chloride 102 (98-107) mEq/L Carbon Dioxide 23 (23-29) mEq/L BUN 9 (6-20) mg/dL Creatinine 0.51 L (0.60-1.20) mg/dL Glucose 101 (70-105) mg/dL Calcium 8.4 L (8.6-10.3) mg/dL Calcium panel 05/16/18 Range/Units 05:53 Calcium 8.4 L (8.6-10.3) mg/dL Pituitary panel 05/16/18 Range/Units 05:53 Sodium 132 L (136-145) mEq/L Potassium 4.0 (3.5-5.1) mEq/L Chloride 102 (98-107) mEq/L Carbon Dioxide 23 (23-29) mEq/L BUN 9 (6-20) mg/dL Creatinine 0.51 L (0.60-1.20) mg/dL Glucose 101 (70-105) mg/dL Calcium 8.4 L (8.6-10.3) mg/dL Adrenal panel 05/16/18 Range/Units 05:53 Sodium 132 L (136-145) mEq/L Potassium 4.0 (3.5-5.1) mEq/L Chloride 102 (98-107) mEq/L Carbon Dioxide 23 (23-29) mEq/L BUN 9 (6-20) mg/dL Creatinine 0.51 L (0.60-1.20) mg/dL Glucose 101 (70-105) mg/dL Calcium 8.4 L (8.6-10.3) mg/dL Consult Discharge Plan - Plan Referrals: Shae Russell, TOOL AND DIE MANAGER [Primary Care Provider] - <Matthew Jordan - Last Filed: 05/16/18 12:41> Date of Encounter: 05/16/18 - Assessment and Plan (1) Abdominal pain Current Visit: Yes Status: Acute Qualifiers: Abdominal location: generalized Qualified Code(s): R10.84 - Generalized abdominal pain Objective Vital Signs - Last 8 Hours Temp Pulse Resp BP Pulse Ox 05/16/18 10:55 98.5 F 107 14 125/90 98 05/16/18 08:30 96 05/16/18 06:43 97.6 F 92 14 134/93 96 Intake and Output 05/15/18 05/16/18 05/16/18 23:59 07:59 15:59 Intake Total 1160 / 1160 340 / 340 1120 / 1120 Output Total 325 / 325 150 / 150 475 / 475 Balance 835 / 835 190 / 190 645 / 645 Intake: IV Fluids 1100 / 1100 100 / 100 1000 / 1000 0.9 % Sodium Chloride 1,000 ML 1000 / 1000 1000 / 1000 @ 100 mls/hr IVC .Q10H [facility] Rx#: [id number] Flagyl Premix 500 MG/100 ML 500 100 / 100 100 / 100 mg In 100 ml @ 100 mls/hr IVPB Q8HR [facility] Rx#:[id number] Oral 60 / 60 240 / 240 120 / 120 Output: Urine 275 / 275 150 / 150 0 / 0 Stool 50 / 50 0 / 0 475 / 475 Other: Meal NPO Fulls Breakfast Percent of Meal Consumed 5% Stool Consistency liquid Stool Color Brown Weight 84.1 kg Blood Glucose* 93 Patient Weight 05/16/18 23:59 Weight 84.1 kg - Labs 05/16/18 05:53 05/16/18 05:53 Diabetes panel 05/16/18 Range/Units 05:53 Sodium 132 L (136-145) mEq/L Potassium 4.0 (3.5-5.1) mEq/L Chloride 102 (98-107) mEq/L Carbon Dioxide 23 (23-29) mEq/L BUN 9 (6-20) mg/dL Creatinine 0.51 L (0.60-1.20) mg/dL Glucose 101 (70-105) mg/dL Calcium 8.4 L (8.6-10.3) mg/dL Calcium panel 05/16/18 Range/Units 05:53 Calcium 8.4 L (8.6-10.3) mg/dL Pituitary panel 05/16/18 Range/Units 05:53 Sodium 132 L (136-145) mEq/L Potassium 4.0 (3.5-5.1) mEq/L Chloride 102 (98-107) mEq/L Carbon Dioxide 23 (23-29) mEq/L BUN 9 (6-20) mg/dL Creatinine 0.51 L (0.60-1.20) mg/dL Glucose 101 (70-105) mg/dL Calcium 8.4 L (8.6-10.3) mg/dL Adrenal panel 05/16/18 Range/Units 05:53 Sodium 132 L (136-145) mEq/L Potassium 4.0 (3.5-5.1) mEq/L Chloride 102 (98-107) mEq/L Carbon Dioxide 23 (23-29) mEq/L BUN 9 (6-20) mg/dL Creatinine 0.51 L (0.60-1.20) mg/dL Glucose 101 (70-105) mg/dL Calcium 8.4 L (8.6-10.3) mg/dL - Attending Attestation patient seen and examined. i have reviewed all labs, imaging, and notes. I agree with the above assessment and plan and wish to add the following... 52F POD #5 s/p ex lap, biopsy of peritoneal lesions, diverting loop ileostomy 2/ 2 carcinomatosis; tolerating clears, having ostomy function; path called and still running confirmatory tests, but findings are consistent with malignancy; diet as tolerated if she tolerates full liquids; SLIV when tolerating diet will await final pathology and oncology recommendations general surgery will continue to follow and be available
[2018-05-16] MEDS: 0.9 % Sodium Chloride 1,000 ML IVC SCH ×2 (09:53→22:56)
[2018-05-16] MEDS: Gabapentin 300 MG CAPSULE PO SCH ×3 (09:54→21:18)
[2018-05-16] MEDS: diazePAM 5 MG TABLET PO SCH ×3 (09:54→21:18)
[2018-05-16] MEDS: *HR* Heparin 5,000 UNIT/ML VIAL SQ SCH ×3 (09:54→22:54)
[2018-05-16] MEDS: MetroNIDAZOLE 500 MG/100 ML 500 MG/100 ML BAG IVPB SCH (09:54)
[2018-05-16] MEDS: *HR* OxyCODONE Oral Soln 5 MG/5 ML UD.LIQ PO PRN ×3 (09:55→22:54)
[2018-05-16] MEDS: Pantoprazole 40 MG VIAL IVP SCH (09:55)
[2018-05-16] MEDS ORDERED: Isovue-370 500 ML INFUS..BTL IV ONE (15:00)
--- NOTE | 2018-05-16 15:13 | Internal Med Progress Note ---
<Nicholas Edwards - Last Filed: 05/16/18 15:30> Hospitalist Progress Note - Encounter Date of Encounter: 05/16/18 Time of Encounter: 09:00 - Subjective Interval History: Patient currently on PO oxycodone for pain control. Denies any worsening abdominal pain, fever, chills, shortness of breath. Patient has bowel movements and is passing gas. She has been advanced to clear liquid diets today has been tolerating it very well. The plan is to transition to full liquid diet if patient tolerates clears this am. Since the patient is tolerating PO intake, we started her back on her home dose of Wellbutrin for anxiety. Her nurse was concerned about a potential bump/nodule above her ileostomy bag. On physical exam I did not appreciate any nodule or any bump which might potentially be tender to palpation. I will continue to monitor. - Exam Vitals: Temp Pulse Resp BP Pulse Ox 98.5 F 107 14 125/90 98 05/16/18 10:55 05/16/18 10:55 05/16/18 10:55 05/16/18 10:55 05/16/18 10:55 Exam: General: pleasant, without distress, anxious HEENT: Head atraumatic, normocephalic, Moist Mucous Membranes, uvula midline Neck: nontender to palpation, absent lymphadenopathy, Cardiovascualr: Regular rate and rhythm with no murmur, absent gallops or rubs, absent pedal edema Lungs: Clear to auscultation bilaterally, not in respiratory distress Abdomen: Soft distendend, post surgical tenderness diffusely , currently on PO oxycodone for pain control Skin: warm and dry, absent rash, absent open wounds and nodules MSK: absent clubbing, cyanosis, joints without swelling Neuro: Cranial nerves II through XII intact, UE and LE sensation equal bilaterally, UE and LEstrength 5/5, alert oriented 3, Psych: good insight and judgment - Assessment and Plan (1) Abdominal pain Current Visit: Yes Status: Acute Assessment and Plan: - Due to malignancy with peritoneal wall lesions. Patient has CEA of 5.5. CA 125 : 163, Curently POD #4 with excisional biopsy of peritoneal wall and diverting loop ileostomy,the dressing looks intact - on PO oxycodone pain control, switch to sublingual oxycodone tomorrow - BS present - oncology consulted. -Daily wound care and colostomy management. NG 300 mL output last 6 hours -Surgery following, Surgical specimen pathology pending, (2) Pleural effusion Current Visit: Yes Status: Acute Assessment and Plan: -likely due to malignancy, patient had an elevated CEA. -Patient CT chest was positive for small residual pleural effusion on the left side. Beats etiology showed 13 mm right middle lobe with concerns for malignancy. -She is day 5 s/ p thoracentesis. The pleural fluid is found to be exudative in nature. Patient denies any shortness of breath chest pain. - Continue to monitor (3) C. difficile colitis Current Visit: Yes Status: Acute Assessment and Plan: - Her GI panel was positive for C. difficile colitis. -Transitioned from IV Flagyl to PO vancomycin -Continue contact precautions. (4) Abdominal carcinomatosis Current Visit: Yes Status: Acute Assessment and Plan: She was found to have colonic mass, CEA 5.5, CQ 125 elevated : 163 - Pending pathological Evaluation, CA 19-9 pending (5) Goals of care, counseling/discussion Current Visit: Yes Status: Acute Assessment and Plan: - The family will require full aggressive treatment once the pathogy report is out. On briefly talking to the mom, it seems to me that they would like to go to [facility] for further management. (6) Back pain Current Visit: Yes Status: Chronic Assessment and Plan: -Currently on PO oxycodone for back pain. (7) Anxiety and depression Current Visit: Yes Status: Chronic Assessment and Plan: -Patient has a history of anxiety and depression. -She is tolerating PO intake,she can be started back on Wellbutrin DVT Prophylaxis: heparin SQ - Time Spent with Patient Total time spent is greater than 50% in coordination of care (as documented) at patient's floor/unit and/or counseling patient: Internal Medicine: Result - Labs CBC & Chem 7: 05/16/18 05:53 05/16/18 05:53 Labs: Short CBC 05/16/18 Range/Units 05:53 WBC 11.4 H (4.3-11.1) K/mcL Hgb 12.8 (11.5-15.4) g/dL Hct 37.6 (35.3-44.9) % Plt Count 283 (140-400) K/mcL Neutrophils # 8.8 (1.6-8.9) K/mcL BMP 05/16/18 05:53 Sodium 132 L Potassium 4.0 Chloride 102 Carbon Dioxide 23 BUN 9 Creatinine 0.51 L Glucose 101 Calcium 8.4 L Consult Discharge Plan - Plan Referrals: Shae Russell, IMAGING MANAGER [Primary Care Provider] - <Alfonso Hernandez - Last Filed: 05/16/18 17:16> Hospitalist Progress Note - Encounter Date of Encounter: 05/16/18 - Exam Vitals: Temp Pulse Resp BP Pulse Ox 98.5 F 107 14 125/90 98 05/16/18 10:55 05/16/18 10:55 05/16/18 10:55 05/16/18 10:55 05/16/18 10:55 - Assessment and Plan (1) Pleural effusion Current Visit: Yes Status: Acute (2) Anxiety and depression Current Visit: Yes Status: Chronic (3) DVT prophylaxis Current Visit: Yes Status: Acute (4) Abdominal pain Current Visit: Yes Status: Acute (5) C. difficile colitis Current Visit: Yes Status: Acute (6) Hypokalemia Current Visit: Yes Status: Resolved (7) Tobacco abuse Current Visit: Yes Status: Chronic (8) Colonic mass Current Visit: Yes Status: Acute - Time Spent with Patient Total time spent is greater than 50% in coordination of care (as documented) at patient's floor/unit and/or counseling patient: Internal Medicine: Result - Labs CBC & Chem 7: 05/16/18 05:53 05/16/18 05:53 Labs: Short CBC 05/16/18 Range/Units 05:53 WBC 11.4 H (4.3-11.1) K/mcL Hgb 12.8 (11.5-15.4) g/dL Hct 37.6 (35.3-44.9) % Plt Count 283 (140-400) K/mcL Neutrophils # 8.8 (1.6-8.9) K/mcL [facility] 05/16/18 05:53 Sodium 132 L Potassium 4.0 Chloride 102 Carbon Dioxide 23 BUN 9 Creatinine 0.51 L Glucose 101 Calcium 8.4 L - Attending Attestation I examined this patient and my medical decision-making was reviewed with the Resident Physician on 05/16/18. I agree with the documented findings, disposition and treatment plan as described except to the extent set forth below. Ms Warren is currently admitted for abdominal pain due to colon mass now s/p exp lap. She remains moderate to high risk due to potential for worsening clinical status. Ms Warren feels anxious. Heart has been fast. No fever or chills. Awaiting path results and feels nervous. Taking liquids in today. Exam alert Sitting up in bed Mucus membranes dry Heart tachy No wheeze Dressing intact I/P 1. Tachycardia - feels anxious. Restart home meds. Check CTA chest. 2. Colon mass Further diagnoses and plan as above <Nicholas Edwards - Last Filed: 05/16/18 15:30> (1) Abdominal pain Qualifiers: Abdominal location: generalized Qualified Code(s): R10.84 - Generalized abdominal pain (6) Back pain Qualifiers: Back pain location: back pain in unspecified location Chronicity: chronic Back pain laterality: unspecified Qualified Code(s): M54.9 - Dorsalgia, unspecified; G89.29 - Other chronic pain <Alfonso Hernandez - Last Filed: 05/16/18 17:16> (4) Abdominal pain Qualifiers: Abdominal location: generalized Qualified Code(s): R10.84 - Generalized abdominal pain
[2018-05-16] MEDS: Vancomycin Oral Soln 125 MG/2.5 ML UDC PO SCH ×2 (16:51→21:19)
[2018-05-16] MEDS: BuPROPion SR (12 HR) 150 MG TABLET PO SCH (21:18)
[2018-05-17] MEDS: *HR* OxyCODONE Oral Soln 5 MG/5 ML UD.LIQ PO PRN ×2 (06:49→12:19)
[2018-05-17 07:00] LABS: BUN/Creatinine Ratio 16 (6-26); Blood Urea Nitrogen 7 mg/dL (6-20); Carbon Dioxide 21 mEq/L (23-29); Chloride 104 mEq/L (98-107); Glucose 133 mg/dL (70-105); Osmolality,Calculated 276 (280-300); Potassium 3.9 mEq/L (3.5-5.1); Sodium 133 mEq/L (136-145); eGFR For Non-African Americans > 60 (> 60)
[2018-05-17] MEDS: diazePAM 5 MG TABLET PO SCH ×2 (07:55→15:02)
[2018-05-17] MEDS: *HR* Heparin 5,000 UNIT/ML VIAL SQ SCH ×2 (07:55→16:07)
[2018-05-17] MEDS: Gabapentin 300 MG CAPSULE PO SCH ×2 (07:56→15:02)
[2018-05-17] MEDS: BuPROPion SR (12 HR) 150 MG TABLET PO SCH (07:56)
[2018-05-17] MEDS: Vancomycin Oral Soln 125 MG/2.5 ML UDC PO SCH ×2 (07:57→12:18)
[2018-05-17 08:16] LABS: Basophils # 0.1 K/mcL (0.0-0.2); Basophils % 0.5 %; Eosinophils # 0.2 K/mcL (0.0-0.6); Eosinophils % 1.5 %; Hematocrit 35.2 % (35.3-44.9); Hemoglobin 11.9 g/dL (11.5-15.4); Immature Granulocytes % 0.8 % (0-4); Lymphocytes # 1.2 K/mcL (0.6-4.6); Lymphocytes % 11.4 %; Mean Corpuscular HGB Conc 33.8 g/dL (31.6-35.5); Mean Corpuscular Hemoglobin 29.4 pg (28.0-33.3); Mean Corpuscular Volume 86.9 fL (83.0-100.0); Mean Platelet Volume 10.8 fL (9.4-12.4); Monocytes # 1.2 K/mcL (0.0-1.3); Monocytes % 11.4 %; Neutrophils # 7.9 K/mcL (1.6-8.9); Platelet Count 294 K/mcL (140-400); Red Blood Count 4.05 M/mcL (3.82-4.97); Red Cell Distribution Width 14.7 % (11.5-14.5); Segmented Neutrophils % 74.4 %
[2018-05-17 08:23] LABS: Calcium 8.5 mg/dL (8.6-10.3)
--- NOTE | 2018-05-17 08:53 | Internal Med Progress Note ---
Hospitalist Progress Note - Encounter Date of Encounter: 05/17/18 - Subjective Interval History: Patient currently on PO oxycodone for pain control. Denies any worsening abdominal pain, fever, chills, shortness of breath. Patient has bowel movements and is passing gas. She has been advanced to clear liquid diets today has been tolerating it very well. The plan is to transition to full liquid diet if patient tolerates clears this am. Since the patient is tolerating PO intake, we started her back on her home dose of Wellbutrin for anxiety. Her nurse was concerned about a potential bump/nodule above her ileostomy bag. On physical exam I did not appreciate any nodule or any bump which might potentially be tender to palpation. I will continue to monitor. - Exam Vitals: Temp Pulse Resp BP Pulse Ox 98.5 F 100 14 113/76 96 05/17/18 07:03 05/17/18 07:03 05/17/18 07:03 05/17/18 07:03 05/17/18 07:03 - Assessment and Plan (1) Abdominal pain Current Visit: Yes Status: Acute (2) Pleural effusion Current Visit: Yes Status: Acute (3) C. difficile colitis Current Visit: Yes Status: Acute (4) Abdominal carcinomatosis Current Visit: Yes Status: Acute (5) Goals of care, counseling/discussion Current Visit: Yes Status: Acute (6) Back pain Current Visit: Yes Status: Chronic (7) Anxiety and depression Current Visit: Yes Status: Chronic - Time Spent with Patient Total time spent is greater than 50% in coordination of care (as documented) at patient's floor/unit and/or counseling patient: Internal Medicine: Result - Labs CBC & Chem 7: 05/17/18 06:03 05/17/18 06:03 Labs: Short CBC 05/17/18 Range/Units 06:03 WBC 10.6 (4.3-11.1) K/mcL Hgb 11.9 (11.5-15.4) g/dL Hct 35.2 L (35.3-44.9) % Plt Count 294 (140-400) K/mcL Neutrophils # 7.9 (1.6-8.9) K/mcL BMP 05/17/18 06:03 Sodium 133 L Potassium 3.9 Chloride 104 Carbon Dioxide 21 L BUN 7 Creatinine 0.44 L Glucose 133 H Calcium 8.5 L - Impressions Impressions Chest CTA 05/16/18 15:00 IMPRESSION: No evidence of pulmonary embolism or aortic dissection. Redemonstration of nodularity of the pleura, along with a right middle lobe nodule, concerning for metastatic disease. Moderate-sized left pleural effusion, with adjacent airspace disease, atelectasis versus pneumonia. D/ / Arsenio Mistry MD / Arsenio Mistry MD Interpreting Provider: Arsenio Mistry MD Consult Discharge Plan - Plan Referrals: Shae Russell, LINE ANALYST [Primary Care Provider] - (1) Abdominal pain Qualifiers: Abdominal location: generalized Qualified Code(s): R10.84 - Generalized abdominal pain (6) Back pain Qualifiers: Back pain location: back pain in unspecified location Chronicity: chronic Back pain laterality: unspecified Qualified Code(s): M54.9 - Dorsalgia, unspecified; G89.29 - Other chronic pain
[2018-05-17] MEDS: 0.9 % Sodium Chloride 1,000 ML IVC SCH (09:22)
--- NOTE | 2018-05-17 10:21 | General Surgery Progress Note ---
<Essie Keita - Last Filed: 05/17/18 10:40> Date of Encounter: 05/17/18 Time of Encounter: 07:45 - Assessment and Plan (1) Abdominal carcinomatosis Current Visit: Yes Status: Acute Date of procedure: 05/11/18 Pre-op diagnosis: small bowel obstruction Post-op diagnosis: same Procedure: exploratory laparotomy excisional biopsy of peritoneal wall lesion diverting loop ileostomy Implants: none Complications: none POD #6 as above. Pathology remains pending, per review with attending surgeon, signet cells were noted. Her exam is as expected. From a surgical standpoint, she is doing well and ok to d/c from a surgical perspective when a d/c plan is in place, and new ostomy teaching is completed per the wound care nurse, d/c planing per primary team. PT /OT and access services representative consult has been placed. Regular diet continue supportive care and discomfort management discharge planning per primary team consult dietitian as she is expected to have increased output from her ileostomy and will likely require daily Pedialyte (x2) for electrolyte balance Subjective Patient reports: no new complaints, pain is less, tolerating a regular diet, voiding w/o difficulty, flatus, bowel movement, afebrile Objective Vital Signs - Last 8 Hours Temp Pulse Resp BP Pulse Ox 05/17/18 07:03 98.5 F 100 14 113/76 96 05/17/18 03:57 98.5 F 97 15 119/82 96 Intake and Output 05/16/18 05/17/18 05/17/18 23:59 07:59 15:59 Intake Total 1180 / 1180 883 / 883 117 / 117 Output Total 825 / 825 200 / 200 Balance 355 / 355 883 / 883 -83 / -83 Intake: IV Fluids 1000 / 1000 883 / 883 117 / 117 0.9 % Sodium Chloride 1,000 ML 1000 / 1000 883 / 883 117 / 117 @ 100 mls/hr IVC .Q10H DAO Rx#: [id number] Oral 180 / 180 Output: Urine 200 / 200 Stool 625 / 625 200 / 200 Other: Meal Dinner Percent of Meal Consumed 30% Stool Size Small Moderate Stool Consistency loose soft liquid Stool Characteristics Pasty Stool Color Brown Brown # Bowel Movements 2 Weight 85.3 kg Patient Weight 05/17/18 23:59 Weight 85.3 kg - General physical appearance no distress - Eyes normal ocular movement - ENT normal mucosa - Neck Neck exam: trachea midline - Respiratory normal expansion, normal respiratory effort, clear to auscultation - Cardiovascular Cardiovascular exam: Present: RRR - Abdomen Abdomen: Present: bowel sounds present, soft, non tender, wound (ostomy WNL) Hernia: none - Incision Incision: Present: clean and dry, intact - Integumentary no growths - Neurologic normal sensation - Musculoskeletal normal posture - Psychiatric oriented to time, oriented to person, oriented to place - Labs 05/17/18 06:03 05/17/18 06:03 Diabetes panel 05/17/18 Range/Units 06:03 Sodium 133 L (136-145) mEq/L Potassium 3.9 (3.5-5.1) mEq/L Chloride 104 (98-107) mEq/L Carbon Dioxide 21 L (23-29) mEq/L BUN 7 (6-20) mg/dL Creatinine 0.44 L (0.60-1.20) mg/dL Glucose 133 H (70-105) mg/dL Calcium 8.5 L (8.6-10.3) mg/dL Calcium panel 05/17/18 Range/Units 06:03 Calcium 8.5 L (8.6-10.3) mg/dL Pituitary panel 05/17/18 Range/Units 06:03 Sodium 133 L (136-145) mEq/L Potassium 3.9 (3.5-5.1) mEq/L Chloride 104 (98-107) mEq/L Carbon Dioxide 21 L (23-29) mEq/L BUN 7 (6-20) mg/dL Creatinine 0.44 L (0.60-1.20) mg/dL Glucose 133 H (70-105) mg/dL Calcium 8.5 L (8.6-10.3) mg/dL Adrenal panel 05/17/18 Range/Units 06:03 Sodium 133 L (136-145) mEq/L Potassium 3.9 (3.5-5.1) mEq/L Chloride 104 (98-107) mEq/L Carbon Dioxide 21 L (23-29) mEq/L BUN 7 (6-20) mg/dL Creatinine 0.44 L (0.60-1.20) mg/dL Glucose 133 H (70-105) mg/dL Calcium 8.5 L (8.6-10.3) mg/dL Consult Discharge Plan - Plan Referrals: Shae Russell, MIIM [Primary Care Provider] - <Matthew Jordan - Last Filed: 05/17/18 13:25> Date of Encounter: 05/17/18 - Assessment and Plan (1) Abdominal pain Current Visit: Yes Status: Acute Qualifiers: Abdominal location: generalized Qualified Code(s): R10.84 - Generalized abdominal pain Objective Vital Signs - Last 8 Hours Temp Pulse Resp BP Pulse Ox 05/17/18 10:29 98.8 F 106 14 120/83 94 05/17/18 07:03 98.5 F 100 14 113/76 96 Intake and Output 05/16/18 05/17/18 05/17/18 23:59 07:59 15:59 Intake Total 1180 / 1180 883 / 883 117 / 117 Output Total 825 / 825 200 / 200 Balance 355 / 355 883 / 883 -83 / -83 Intake: IV Fluids 1000 / 1000 883 / 883 117 / 117 0.9 % Sodium Chloride 1,000 ML 1000 / 1000 883 / 883 117 / 117 @ 100 mls/hr IVC .Q10H DAO Rx#: [id number] Oral 180 / 180 Output: Urine 200 / 200 Stool 625 / 625 200 / 200 Other: Meal Dinner Percent of Meal Consumed 30% Stool Size Small Moderate Stool Consistency loose soft liquid Stool Characteristics Pasty Stool Color Brown Brown # Bowel Movements 2 Weight 85.3 kg Patient Weight 05/17/18 23:59 Weight 85.3 kg - Labs 05/17/18 06:03 05/17/18 06:03 Diabetes panel 05/17/18 Range/Units 06:03 Sodium 133 L (136-145) mEq/L Potassium 3.9 (3.5-5.1) mEq/L Chloride 104 (98-107) mEq/L Carbon Dioxide 21 L (23-29) mEq/L BUN 7 (6-20) mg/dL Creatinine 0.44 L (0.60-1.20) mg/dL Glucose 133 H (70-105) mg/dL Calcium 8.5 L (8.6-10.3) mg/dL Calcium panel 05/17/18 Range/Units 06:03 Calcium 8.5 L (8.6-10.3) mg/dL Pituitary panel 05/17/18 Range/Units 06:03 Sodium 133 L (136-145) mEq/L Potassium 3.9 (3.5-5.1) mEq/L Chloride 104 (98-107) mEq/L Carbon Dioxide 21 L (23-29) mEq/L BUN 7 (6-20) mg/dL Creatinine 0.44 L (0.60-1.20) mg/dL Glucose 133 H (70-105) mg/dL Calcium 8.5 L (8.6-10.3) mg/dL Adrenal panel 05/17/18 Range/Units 06:03 Sodium 133 L (136-145) mEq/L Potassium 3.9 (3.5-5.1) mEq/L Chloride 104 (98-107) mEq/L Carbon Dioxide 21 L (23-29) mEq/L BUN 7 (6-20) mg/dL Creatinine 0.44 L (0.60-1.20) mg/dL Glucose 133 H (70-105) mg/dL Calcium 8.5 L (8.6-10.3) mg/dL - Attending Attestation patient seen and examined. i have reviewed all labs, imaging, and notes. i agree with the above assessment and plan and wish to add to the following... will need teaching for ostomy prior to going home, especially in light of expected high output; general surgery will sign off; follow up with me 2 weeks after discharge;
[2018-05-17 14:12] VITALS: BP 118/82
--- NOTE | 2018-05-17 14:22 | Discharge Summary ---
<Amaris Edwardsbh - Last Filed: 05/17/18 17:36> Orders not resulted at time of discharge: Pending orders 05/11/18 18:29 Surgical Pathology [PTH] Routine Date of Encounter: 05/17/18 Time of Encounter: 10:20 - Discharge Diagnosis (1) Abdominal pain Priority: Primary Status: Acute Qualifiers: Abdominal location: generalized Qualified Code(s): R10.84 - Generalized abdominal pain (2) Pleural effusion Priority: Secondary Status: Acute (3) C. difficile colitis Priority: Secondary Status: Acute (4) Abdominal carcinomatosis Priority: Secondary Status: Acute (5) Goals of care, counseling/discussion Priority: Secondary Status: Acute (6) Back pain Priority: Secondary Status: Chronic Qualifiers: Back pain location: back pain in unspecified location Chronicity: chronic Back pain laterality: unspecified Qualified Code(s): M54.9 - Dorsalgia, unspecified; G89.29 - Other chronic pain (7) Anxiety and depression Priority: Secondary Status: Chronic Hospital course: Ms. Warren is a 52-year-old female who was admitted to the hospital floor for abdominal pain that has been going on for the last 2 months. Patient has been deliberately trying to lose weight since August and has lost close to 50 pounds in the last 7 months. Early in the January she was having early satiety, abdominal pain with distention but lately it has been multiple episodes of loose stools. Patient reported no systemic signs like fever, chills, chest pain or shortness of breath during the admission. Patient's GI panel was positive for C Diff . Patient CT chest was positive for left-sided pleural effusion therefore diagnostic thoracentesis was requested and the pleural fluid turned out to be an exudative in nature. Her CT abdomen/pelvis showed diffuse bowel wall thickening, congestion of the mesentery, lots of free fluid and concerns for internal hernia. Therefore, she underwent exploratory laparotomy, excisional biopsy of the peritoneal wall lesion and diverting loop ileostomy. Patient peritoneal lesion were sent for pathological evaluation, primary results showed growth of signet cells and we are still waiting on the final results of the culture. The course of her hospital stay was very unremarkable. Patient was on IV flagyl for the past 5 days for her C Diff and was transitioned to PO Vancomycin once she was tolerating PO intake. Patient is being sent hme on 3 more days of Vancomycin QID along with 5mg Oxycodone for pain control. Patient has been given instructions for wound care and ileostomy bag replacement. Patient is open to the idea of further management should there be any definite concerns for malignancy and if she needs any further workup. - Time Spent with Patient Total time spent providing and/or coordinating discharge services: - Discharge Medications Prescriptions: OxyCODONE Immed Rel [Roxicodone 5 MG] 5 mg PO Q6HR PRN 7 Days #28 tablet PRN Reason: post op pain Vancomycin Oral Soln [Firvanq] 125 mg PO QID #3 udc Home Medications: BuPROPion SR (12 HR) [Wellbutrin SR] 150 mg PO BID 12/21/15 [History] Esomeprazole Magnesium [Nexium] 20 mg PO DAILY 05/10/18 [History] Acetaminophen/Butalbital/Caffe [Fioricet] 1 tab PO TID PRN 05/11/18 [History] Gabapentin [Neurontin] 600 mg PO TID 05/11/18 [History] OxyCODONE Immed Rel [Roxicodone 15 MG] 15 mg PO Q8HR 05/11/18 [History] Quetiapine Fumarate [Seroquel] 50 mg PO HS 05/11/18 [History] Sucralfate [Carafate] 1 g PO BID 05/11/18 [History] diazePAM [Valium] 5 mg PO TID 05/11/18 [History] OxyCODONE Immed Rel [Roxicodone 5 MG] 5 mg PO Q6HR PRN 7 Days #28 tablet [Rx] Vancomycin Oral Soln [Firvanq] 125 mg PO QID #3 udc 05/17/18 [Rx] Allergies/Adverse Reactions: 3 Allergy/AdvReac Type Severity Reaction Status Date / Time steroid shot Allergy See Uncoded 05/10/18 15:54 Comments Date of admission: 05/12/18 07:27 Primary care physician: Shae Russell CNP Consults: 05/11/18 21:29 Consult to Oncology [CONS] Routine Consulting Provider: [facility] Reason for Consult: stage iv Time Notified: 18:39 Call Completed: Yes Consult to Palliative Care [CONS] Routine Comment: Consulting Provider: [facility] Reason for Consult: stage IV cancer Call Completed: Yes Consult to Wound Care [CONS] Routine Reason for Consult: needs ostomy teaching Call Completed: No 05/17/18 10:19 Consult to Occupational Therapy [CONS] Routine Comment: Evaluate, develop and implement POC Reason for Consult: Mobilization and discharge planning Does patient have active BEDREST order?: No Is patient medically & hemodynamically stable?: Yes Patient assessed for mobility or mobilized this visit?: No Consult to Physical Therapy [CONS] Routine Comment: Evaluate, develop and implement POC Reason for Consult: Mobilization and discharge planning Does patient have active BEDREST order?: No Is patient medically & hemodynamically stable?: Yes Patient assessed for mobility or mobilized this visit?: No Consult to G[employer] Supervisor [CONS] Routine Reason for SW Consult: HHC vs rehab at d/c. Ostomy supplies 05/17/18 10:28 consult to mine engineering superintendent [Consult to Nutrition] [CONS] Routine Comment: expected high OP from ileostomy Consulting Provider: NUTRITION Reason for Dietary Consult: Diet Education Other:: means to decrease ileostomy output, daily pedialyte - Constitutional Vitals: Temp Pulse Resp BP Pulse Ox 98.5 F 104 13 118/82 95 05/17/18 14:11 05/17/18 14:11 05/17/18 14:11 05/17/18 14:11 05/17/18 14:11 Exam: General: pleasant, without distress, anxious HEENT: Head atraumatic, normocephalic, Moist Mucous Membranes, uvula midline Neck: nontender to palpation, absent lymphadenopathy, Cardiovascular: Regular rate and rhythm with no murmur, absent gallops or rubs, absent pedal edema Lungs: Clear to auscultation bilaterally, not in respiratory distress Abdomen: Soft distendend, post surgical tenderness diffusely , currently on PO oxycodone for pain control Skin: warm and dry, absent rash, absent open wounds and nodules MSK: absent clubbing, cyanosis, joints without swelling Neuro: Cranial nerves II through XII intact, UE and LE sensation equal bilaterally, UE and LEstrength 5/5, alert oriented 3, Psych: good insight and judgment - Patient Status Disposition: Home Health Service Condition: Good Overall status at discharge: patient is progressing back to baseline - Discharge Instructions Instructions: Ileostomy Care (DC), Colectomy (DC) Follow Up With: Matthew Jordan MD [Non-Partnered Physician] - 05/28/18 8:30 am Suyapa Rm APN [Advanced Practice Nurse] - 05/21/18 4:00 pm - Diet and Activity Activity: resume usual activities as tolerated Diet: low fat, low cholesterol, low salt diet <Alfonso Hernandez - Last Filed: 05/17/18 18:13> Date of Encounter: 05/17/18 - Discharge Diagnosis (1) Pleural effusion Priority: Primary Status: Acute (2) Anxiety and depression Status: Chronic (3) Abdominal pain Priority: Secondary Status: Acute Qualifiers: Abdominal location: generalized Qualified Code(s): R10.84 - Generalized abdominal pain (4) C. difficile colitis Status: Acute (5) Hypokalemia Priority: Secondary Status: Resolved (6) Tobacco abuse Priority: Secondary Status: Chronic (7) Colonic mass Priority: Secondary Status: Acute Hospital course: Ms. Warren is a 52 year old female - Time Spent with Patient Total time spent providing and/or coordinating discharge services: 37min Date of admission: 05/12/18 07:27 Primary care physician: Shae Russell CNP Consults: 05/11/18 21:29 Consult to Oncology [CONS] Routine Consulting Provider: [facility] Reason for Consult: stage iv Time Notified: 18:39 Call Completed: Yes Consult to Palliative Care [CONS] Routine Comment: Consulting Provider: Pall[facility] Reason for Consult: stage IV cancer Call Completed: Yes Consult to Wound Care [CONS] Routine Reason for Consult: needs ostomy teaching Call Completed: No 05/17/18 10:19 Consult to Occupational Therapy [CONS] Routine Comment: Evaluate, develop and implement POC Reason for Consult: Mobilization and discharge planning Does patient have active BEDREST order?: No Is patient medically & hemodynamically stable?: Yes Patient assessed for mobility or mobilized this visit?: No Consult to Physical Therapy [CONS] Routine Comment: Evaluate, develop and implement POC Reason for Consult: Mobilization and discharge planning Does patient have active BEDREST order?: No Is patient medically & hemodynamically stable?: Yes Patient assessed for mobility or mobilized this visit?: No Consult to Grain [employer] Plants Supervisor [CONS] Routine Reason for SW Consult: HHC vs rehab at d/c. Ostomy supplies 05/17/18 10:28 consult to mine engineering superintendent [Consult to Nutrition] [CONS] Routine Comment: expected high OP from ileostomy Consulting Provider: NUTRITION Reason for Dietary Consult: Diet Education Other:: means to decrease ileostomy output, daily pedialyte - Constitutional Vitals: Temp Pulse Resp BP Pulse Ox 98.5 F 104 13 118/82 95 05/17/18 14:11 05/17/18 14:11 05/17/18 14:11 05/17/18 14:11 05/17/18 14:11 - Attending Attestation I examined this patient and my medical decision-making was reviewed with the Resident Physician on 05/17/18. I agree with the documented findings, disposition and treatment plan as described except to the extent set forth below. Ms Warren has been admitted for abdominal pain. She was found to have c diff. She went to OR due to concern for internal hernia and was found to have carcinomatosis and mass. Path is pending. She had pleural effusion which was tapped as well. She has progressed post op and is ready for discharge home. Exam alert Comfortable Mucus membranes dry Heart not tachy No wheeze Plan D/C home today Follow up as outpatient.
--- NOTE | 2018-05-17 14:30 | Physician Discharge Referral ---
Home Health/Hosp Referral Info Transfer to: Home Health - Diagnosis (1) Abdominal pain Priority: Primary Status: Acute (2) Pleural effusion Priority: Secondary Status: Acute (3) C. difficile colitis Priority: Secondary Status: Acute (4) Abdominal carcinomatosis Priority: Secondary Status: Acute (5) Goals of care, counseling/discussion Priority: Secondary Status: Acute (6) Back pain Priority: Secondary Status: Chronic (7) Anxiety and depression Priority: Secondary Status: Chronic - Respiratory Orders Smoking Cessation: Smoking cessation has been advised. For more information, call the [place] Tobacco Quit Line at 8-859-RWCU-NOW. - Services Needed Following services are medically necessary services: Nursing, Physical Therapy, Occupational Therapy - Transfer Medications Prescriptions: OxyCODONE Immed Rel [Roxicodone 5 MG] 5 mg PO Q6HR PRN 7 Days #28 tablet PRN Reason: post op pain Vancomycin Oral Soln [Firvanq] 125 mg PO QID #3 udc Home Medications: BuPROPion SR (12 HR) [Wellbutrin SR] 150 mg PO BID 12/21/15 [History] Esomeprazole Magnesium [Nexium] 20 mg PO DAILY 05/10/18 [History] Acetaminophen/Butalbital/Caffe [Fioricet] 1 tab PO TID PRN 05/11/18 [History] Gabapentin [Neurontin] 600 mg PO TID 05/11/18 [History] OxyCODONE Immed Rel [Roxicodone 15 MG] 15 mg PO Q8HR 05/11/18 [History] Quetiapine Fumarate [Seroquel] 50 mg PO HS 05/11/18 [History] Sucralfate [Carafate] 1 g PO BID 05/11/18 [History] diazePAM [Valium] 5 mg PO TID 05/11/18 [History] OxyCODONE Immed Rel [Roxicodone 5 MG] 5 mg PO Q6HR PRN 7 Days #28 tablet [Rx] Vancomycin Oral Soln [Firvanq] 125 mg PO QID #3 udc 05/17/18 [Rx] Allergies/Adverse Reactions: 3 Allergy/AdvReac Type Severity Reaction Status Date / Time steroid shot Allergy See Uncoded 05/10/18 15:54 Comments Certification: Further, I certify that my clinical findings support that this patient is homebound (i.e. absences from home require considerable and taxing effort and are for medical reasons or anabaptism services or infrequently or short duration when for other reasons) because: Homebound Reason: Post-surgery restriction and or conditions limit ability to leave home Attestation: My signature below is to certify that this patient is under my care and that I, or nurse practitioner, or a physician's hospital administrative assistant working with me, has a face-to -face encounter with this patient.
== END 2018-05-17 16:33 | disposition home health service (06) | DRG 230 ==
LOC: 3ANU → SUATTDRO 21:06 → 3ANU 05-11 15:48
PROVIDERS: ADMIT Student in an Organized Health Care Education/Training Program; ATTEND Internal Medicine

== ENCOUNTER 2018-06-15 18:01 | Inpatient (IN) ==
[2018-06-15 19:02] LABS: Basophils # 0.1 K/mcL (0.0-0.2); Basophils % 0.4 %; Eosinophils % 0.1 %; Hemoglobin 15.8 g/dL (11.5-15.4); Immature Granulocytes % 0.3 % (0-4); Lymphocytes # 1.2 K/mcL (0.6-4.6); Lymphocytes % 8.9 %; Mean Corpuscular HGB Conc 33.6 g/dL (31.6-35.5); Mean Corpuscular Volume 86.2 fL (83.0-100.0); Mean Platelet Volume 11.8 fL (9.4-12.4); Monocytes # 1.6 K/mcL (0.0-1.3); Monocytes % 11.6 %; Neutrophils # 10.8 K/mcL (1.6-8.9); Platelet Count 341 K/mcL (140-400); Red Blood Count 5.45 M/mcL (3.82-4.97); Red Cell Distribution Width 14.9 % (11.5-14.5); Segmented Neutrophils % 78.7 %
--- NOTE | 2018-06-15 19:05 | Emergency Department Note ---
Disposition Clinical Impression: Pleural effusion, Exertional dyspnea Disposition: Admitted As Inpatient Condition: Fair Referrals: Shae Russell CNP [Primary Care Provider] - Forms: ED Satisfaction Letter SOB HPI - General Chief Complaint: ED Shortness of Breath/Dyspnea Stated Complaint: Fluid on lungs,[place] Time Seen by Provider: 06/15/18 18:17 Source: patient Mode of arrival: private vehicle Limitations: no limitations Nursing Notes Reviewed: Yes Vital Signs Reviewed: Yes - History of Present Illness 52-year-old female with a recent diagnosis of and carcinomatosis diagnosed on 05/11/18 currently not on chemotherapy or radiation therapy who presents to the ER due to shortness of breath. The patient states she has had shortness of breath for roughly 1 week. More exertional at times. States she is just felt weak over the last few days. She called her oncologist today who ordered a chest x-ray. She was then told to come to the ER. She has had one thorac entesis in the past. She denies any fevers, chills, nausea, vomiting. No other complaints. Pt Subjective Complaint: shortness of breath, chest pain Onset (ago): day(s) Context: occurred during exertion Severity: moderate Consistency/Duration: intermittent Improves with: rest Worsens with: exertion Associated symptoms: Reports: chest pain. Denies: fever Treatment prior to arrival: none - Related Data Home oxygen amount: none Home Medications Medication Instructions Recorded Confirmed Esomeprazole Magnesium [Nexium] 20 mg PO DAILY 05/10/18 05/28/18 Acetaminophen/Butalbital/Caffe 1 tab PO TID PRN 05/11/18 05/28/18 [Fioricet] Gabapentin [Neurontin] 600 mg PO TID 05/11/18 05/28/18 OxyCODONE Immed Rel [Roxicodone 15 15 mg PO Q8HR 05/11/18 05/28/18 MG] Quetiapine Fumarate [Seroquel] 50 mg PO HS 05/11/18 05/28/18 Previous Rx's Medication Instructions Recorded Lactobacillus Acidophilus 1 each PO TIDWM #90 tablet 05/21/18 [Probiotic Acidophilus] diazePAM [Valium] 1 tab PO BID 30 Days #60 tablet 05/28/18 Allergies Allergy/AdvReac Type Severity Reaction Status Date / Time steroid shot Allergy See Uncoded 05/28/18 11:11 Comments All systems ED: reviewed and negative except as stated. Constitutional: Denies: fever, chills Cardiovascular: Reports: chest pain (With coughing and exertion) Respiratory: Reports: dyspnea Gastrointestinal: Denies: abdominal pain, nausea, vomiting, diarrhea Past Medical History - Past Medical History Attestation: Yes The following information was validated with the patient. Source: patient Medical history: Reports: cancer, other Surgical history: Reports: hysterectomy Psychiatric history: Reports: anxiety, depression IT TECHNICAL SPECIALIST history: Reports: endometriosis, bilateral tubal ligation - Social History Smoking Status: Current some day smoker Smokeless Tobacco Status: No Alcohol use: Reports: none Drug use: Reports: none Physical Exam - General Limitations: no limitations General appearance: alert, in no apparent distress - Head Head exam: atraumatic, normocephalic - Eye Eye exam: Present: normal appearance - ENT ENT exam: normal exam - Neck Neck exam: Present: normal inspection - Chest Chest inspection: Present: normal inspection, symmetric chest wall rise - Respiratory Respiratory exam: Present: other (Absent breath sounds on the left, clear on the right) - Cardiovascular Cardiovascular exam: Present: regular rate, normal rhythm, normal heart sounds - Abdominal Exam Abdominal exam: Present: soft, Non-Tender, other (Ostomy site is pink with brown stool in the bag). Absent: tenderness, distention, guarding, rigidity - Extremities Exam Extremities exam: Present: normal inspection, full ROM - Expanded Upper Extremity Exam Shoulder exam: Present: normal inspection, full ROM Arm exam: Present: normal inspection, full ROM Elbow exam: Present: normal inspection, full ROM Forearm/Wrist exam: Present: normal inspection, full ROM Hand exam: Present: normal inspection, full ROM - Expanded Lower Extremity Exam Hip/Pelvis exam: Present: normal inspection, full ROM Upper leg exam: Present: normal inspection, full ROM Knee exam: Present: normal inspection, full ROM Lower leg exam: Present: normal inspection, full ROM Ankle exam: Present: normal inspection, full ROM Foot/toe exam: Present: normal inspection, full ROM - Skin Skin exam: Present: warm, dry Course Course Narrative: Patient seen and examined. Vital signs reviewed. I reviewed her chest x-ray from today showing a large pleural effusion. Plan for EKG, labs, admission. She did have an angiogram last month. It appears she was tachycardic on her visit as well. - Consultations Consultation #1: I spoke with the interventional radiologist Dr. Angel. Discussed patient's history as well as concern for large pleural effusion. Called because the hospitalist was concerned that the patient may not be up to get a thoracentesis over the weekend. States that the provider can call them tomorrow and they can do the procedure if she needs it. States they are always available for emergent procedures if necessary on inpatients. Consultation #2: Spoke again with interventional radiology. Asking if we are able to perform the procedure. Discussed that she is currently hemodynamically stable and fillet is in her best interest to have her procedure under a more controlled environment. Vital Signs Temperature 97.9 F 06/15/18 18:11 Pulse Rate 129 06/15/18 18:11 Respiratory Rate 18 06/15/18 18:11 Blood Pressure 108/67 06/15/18 18:11 O2 Sat by Pulse Oximetry 97 06/15/18 18:11 Temperature 97.9 F 06/15/18 18:36 Pulse Rate 129 06/15/18 18:36 Respiratory Rate 18 06/15/18 18:36 Blood Pressure 108/67 06/15/18 18:36 O2 Sat by Pulse Oximetry 96 06/15/18 18:44 Oxygen Delivery Oxygen Delivery Room Air Shortness of Breath/Dyspnea - MDM Narrative Medical decision making narrative: 52-year-old female presenting with a large pleural effusion in the setting of recent cancer diagnosis. She is hemodynamically stable here. Labs are grossly unremarkable. Case discussed with interventional radiology. The patient is admitted to the hospital service for further management. - Lab Data Lab results reviewed: Yes I reviewed the patient's lab results. Result diagrams: 06/15/18 18:45 06/15/18 18:45 Lab Results 06/15/18 06/15/18 06/15/18 Range/Units 18:45 18:45 18:45 WBC 13.8 H (4.3-11.1) K/mcL RBC 5.45 H (3.82-4.97) M/mcL Hgb 15.8 H (11.5-15.4) g/dL Hct 47.0 H (35.3-44.9) % MCV 86.2 (83.0-100.0) fL MCH 29.0 (28.0-33.3) pg MCHC 33.6 (31.6-35.5) g/dL RDW 14.9 H (11.5-14.5) % Plt Count 341 (140-400) K/mcL MPV 11.8 (9.4-12.4) fL Immature Gran % 0.3 (0-4) % Seg Neutrophils % 78.7 % Lymphocytes % 8.9 % Monocytes % 11.6 % Eosinophils % 0.1 % Basophils % 0.4 % Neutrophils # 10.8 H (1.6-8.9) K/mcL Lymphocytes # 1.2 (0.6-4.6) K/mcL Monocytes # 1.6 H (0.0-1.3) K/mcL Eosinophils # 0.0 (0.0-0.6) K/mcL Basophils # 0.1 (0.0-0.2) K/mcL PT 13.5 H (9.4-12.1) Seconds INR 1.2 Sodium 137 (136-145) mEq/L Potassium 3.0 L (3.5-5.1) mEq/L Chloride 99 (98-107) mEq/L Carbon Dioxide 26 (23-29) mEq/L BUN 8 (6-20) mg/dL Creatinine 0.53 L (0.60-1.20) mg/dL Est GFR ( Amer) > 60 (> 60) Est GFR (Non-Af Amer) > 60 (> 60) BUN/Creatinine Ratio 15 (6-26) Glucose 120 H (70-105) mg/dL Calculated Osmolality 284 (280-300) Calcium 9.5 (8.6-10.3) mg/dL Troponin I 0.03 (< 0.04) ng/mL B-Natriuretic Peptide (Less than 100) pg/mL 06/15/18 Range/Units 18:45 WBC (4.3-11.1) K/mcL RBC (3.82-4.97) M/mcL Hgb (11.5-15.4) g/dL Hct (35.3-44.9) % MCV (83.0-100.0) fL MCH (28.0-33.3) pg MCHC (31.6-35.5) g/dL RDW (11.5-14.5) % Plt Count (140-400) K/mcL MPV (9.4-12.4) fL Immature Gran % (0-4) % Seg Neutrophils % % Lymphocytes % % Monocytes % % Eosinophils % % Basophils % % Neutrophils # (1.6-8.9) K/mcL Lymphocytes # (0.6-4.6) K/mcL Monocytes # (0.0-1.3) K/mcL Eosinophils # (0.0-0.6) K/mcL Basophils # (0.0-0.2) K/mcL PT (9.4-12.1) Seconds INR Sodium (136-145) mEq/L Potassium (3.5-5.1) mEq/L Chloride (98-107) mEq/L Carbon Dioxide (23-29) mEq/L BUN (6-20) mg/dL Creatinine (0.60-1.20) mg/dL Est GFR ( Amer) (> 60) Est GFR (Non-Af Amer) (> 60) BUN/Creatinine Ratio (6-26) Glucose (70-105) mg/dL Calculated Osmolality (280-300) Calcium (8.6-10.3) mg/dL Troponin I (< 0.04) ng/mL B-Natriuretic Peptide 37 (Less than 100) pg/mL - Radiology Data Radiology results reviewed: Yes I reviewed the patient's radiology results. - EKG Data EKG attestation: Yes I reviewed and interpreted this EKG. EKG results narrative: EKG demonstrates sinus tachycardia with rate of 117. Normal axis. Normal intervals. Normal R-wave progression. No gross ST elevations or depressions. There is diffuse ST flattening. No previous EKG for comparison. S.B.A.R. - S.B.A.R. Situation: Demographics, MOA Background: Presenting Complaint, Relevant PMH, Meds, & Allergies Assessment: Vital Signs, Course and respsone to treatment, Exam Concerns, Patient/Family Expectation, Pertinant Lab Results Recommendation: Barrier(s) to disposition, Recommendation based on pending studies, treatments, or consults S.B.A.R. Report Given to: Dr. Mondragon
[2018-06-15 19:09] LABS: INR 1.2; Prothrombin Time 13.5 Seconds (9.4-12.1)
[2018-06-15 19:23] LABS: BUN/Creatinine Ratio 15 (6-26); Blood Urea Nitrogen 8 mg/dL (6-20); Calcium 9.5 mg/dL (8.6-10.3); Carbon Dioxide 26 mEq/L (23-29); Chloride 99 mEq/L (98-107); Glucose 120 mg/dL (70-105); Osmolality,Calculated 284 (280-300); Sodium 137 mEq/L (136-145); Troponin I 0.03 ng/mL (< 0.04); eGFR For Non-African Americans > 60 (> 60)
--- NOTE | 2018-06-15 20:32 | Emergency Department Note ---
Disposition Clinical Impression: Pleural effusion, Exertional dyspnea Disposition: Admitted As Inpatient Condition: Fair General Adult HPI - General Chief complaint: ED Shortness of Breath/Dyspnea Stated complaint: Fluid on lungs,[place] Time Seen by Provider: 06/15/18 18:17 Source: patient Mode of arrival: private vehicle Limitations: no limitations - History of Present Illness Pain Scale: 5 - Related Data Home Medications Medication Instructions Recorded Confirmed Esomeprazole Magnesium [Nexium] 20 mg PO DAILY 05/10/18 06/15/18 Gabapentin [Neurontin] 600 mg PO TID 05/11/18 06/15/18 OxyCODONE Immed Rel [Roxicodone 15 15 mg PO Q8HR 05/11/18 06/15/18 MG] Quetiapine Fumarate [Seroquel] 50 mg PO HS PRN 05/11/18 06/15/18 diazePAM [Valium] 5 mg PO BID 06/15/18 06/15/18 Allergies Allergy/AdvReac Type Severity Reaction Status Date / Time steroid shot Allergy See Uncoded 05/28/18 11:11 Comments Constitutional: Denies: fever, chills Cardiovascular: Reports: chest pain (With coughing and exertion) Respiratory: Reports: dyspnea Gastrointestinal: Denies: abdominal pain, nausea, vomiting, diarrhea Past Medical History - Past Medical History Medical history: Reports: cancer, other Surgical history: Reports: hysterectomy Psychiatric history: Reports: anxiety, depression 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 Angel on the phone specificially and he visualized the XR and requested that we do the thoracentesis in the ED. I have expressed to him the we have concernd for reexpansion pulmonary edema because of the uknonw time but at least of 7 days time. He has assured me that he will do the thoracentesis in the morning. I have discuseed this with the hospitalist Dr. Moore and he has agreed to accept patine tot his service Time: 21:00 Vital Signs Temperature 97.9 F 06/15/18 18:11 Pulse Rate 129 06/15/18 18:11 Respiratory Rate 18 06/15/18 18:11 Blood Pressure 108/67 06/15/18 18:11 O2 Sat by Pulse Oximetry 97 06/15/18 18:11 Temperature 98.6 F 06/15/18 22:05 Pulse Rate 116 06/15/18 22:05 Respiratory Rate 16 06/15/18 22:05 Blood Pressure 125/85 06/15/18 22:05 O2 Sat by Pulse Oximetry 92 06/15/18 22:05 Oxygen Delivery Oxygen Delivery Room Air Medical Decision Making - Lab Data Result diagrams: 06/15/18 18:45 06/15/18 18:45 Lab Results 06/15/18 06/15/18 06/15/18 Range/Units 18:45 18:45 18:45 WBC 13.8 H (4.3-11.1) K/mcL RBC 5.45 H (3.82-4.97) M/mcL Hgb 15.8 H (11.5-15.4) g/dL Hct 47.0 H (35.3-44.9) % MCV 86.2 (83.0-100.0) fL MCH 29.0 (28.0-33.3) pg MCHC 33.6 (31.6-35.5) g/dL RDW 14.9 H (11.5-14.5) % Plt Count 341 (140-400) K/mcL MPV 11.8 (9.4-12.4) fL Immature Gran % 0.3 (0-4) % Seg Neutrophils % 78.7 % Lymphocytes % 8.9 % Monocytes % 11.6 % Eosinophils % 0.1 % Basophils % 0.4 % Neutrophils # 10.8 H (1.6-8.9) K/mcL Lymphocytes # 1.2 (0.6-4.6) K/mcL Monocytes # 1.6 H (0.0-1.3) K/mcL Eosinophils # 0.0 (0.0-0.6) K/mcL Basophils # 0.1 (0.0-0.2) K/mcL PT 13.5 H (9.4-12.1) Seconds INR 1.2 Sodium 137 (136-145) mEq/L Potassium 3.0 L (3.5-5.1) mEq/L Chloride 99 (98-107) mEq/L Carbon Dioxide 26 (23-29) mEq/L BUN 8 (6-20) mg/dL Creatinine 0.53 L (0.60-1.20) mg/dL Est GFR ( Amer) > 60 (> 60) Est GFR (Non-Af Amer) > 60 (> 60) BUN/Creatinine Ratio 15 (6-26) Glucose 120 H (70-105) mg/dL Calculated Osmolality 284 (280-300) Calcium 9.5 (8.6-10.3) mg/dL Troponin I 0.03 (< 0.04) ng/mL B-Natriuretic Peptide (Less than 100) pg/mL 06/15/18 Range/Units 18:45 WBC (4.3-11.1) K/mcL RBC (3.82-4.97) M/mcL Hgb (11.5-15.4) g/dL Hct (35.3-44.9) % MCV (83.0-100.0) fL MCH (28.0-33.3) pg MCHC (31.6-35.5) g/dL RDW (11.5-14.5) % Plt Count (140-400) K/mcL MPV (9.4-12.4) fL Immature Gran % (0-4) % Seg Neutrophils % % Lymphocytes % % Monocytes % % Eosinophils % % Basophils % % Neutrophils # (1.6-8.9) K/mcL Lymphocytes # (0.6-4.6) K/mcL Monocytes # (0.0-1.3) K/mcL Eosinophils # (0.0-0.6) K/mcL Basophils # (0.0-0.2) K/mcL PT (9.4-12.1) Seconds INR Sodium (136-145) mEq/L Potassium (3.5-5.1) mEq/L Chloride (98-107) mEq/L Carbon Dioxide (23-29) mEq/L BUN (6-20) mg/dL Creatinine (0.60-1.20) mg/dL Est GFR ( Amer) (> 60) Est GFR (Non-Af Amer) (> 60) BUN/Creatinine Ratio (6-26) Glucose (70-105) mg/dL Calculated Osmolality (280-300) Calcium (8.6-10.3) mg/dL Troponin I (< 0.04) ng/mL B-Natriuretic Peptide 37 (Less than 100) pg/mL Attestation Statement - Attestation Attestation: I examined this patient and my medical decision-making was reviewed with the Resident Physician. I agree with the documented findings, disposition and treatment plan as described except to the extent set forth below. 52 year old female prsents to the ED with complaints of new on set pleural efffusion with exertional dyspnea and likley undelrying malignancy. PAtinet CXR confirm pelural efusion she is nnot hypoxic, not dyspneic, and comfortable at rest. Wehave spken with IR and they will be avaialble for thoracentesis tomrrow. Myles lisa be admitted to medicine
[2018-06-15] MEDS ORDERED: Naloxone 0.4 MG/ML INJ IVP PRN (23:20)
--- NOTE | 2018-06-15 23:20 | Internal Med History&Physical ---
Addendum entered and electronically signed by Stan Moore MD 06/16/18 20:11: I saw and evaluated the patient. I reviewed the residents note, performed my own physical examination and agree with findings and plan as documented in the residents note. Patient seen and examined on 06/16/18. Patient presents with large pleural effusion, has history of abdominal carcinomatosis. Effusion could be related to her cancer. IR contacted from ER, who agreed to perform thoracentesis. Will continue to monitor. Patient on oxygen, with good saturations. Original Note: Date of Encounter: 06/15/18 Time of Encounter: 23:20 Internal Medicine - H&P: HPI Chief complaint: Shortness of breath Admitted From: Emergency Dept Plans for Post Hospital Care: Home History of present illness: Ms. Warren is a 52 year old female with history of abdominal carcinomatosis, pleural effusions who presented to the ED with 1 weeks history of shortness of breath. The patient recently was admitted to the hospital for abdominal pain and was found to have C. difficile colitis which led to the diagnosis of abdominal carcinomatosis. She was discharged from the hospital on 05/17/18 statu s post partial colectomy. She now returns to the hospital with complaints of 1 weeks history of shortness of breath. She states this started slowly, but that gradually worse. She describes it as a pressure in her chest specifically on the right side. She said that this has happened previously, at the time of her previous admission she had to have a procedure done called a thoracentesis at which time they took off "5 beakers of fluid" from her right lung in order to make her safe for surgery she said. She says she does not understand why her lung keeps filling up with fluid, however it does cause her pain and worsening shortness of breath. No other symptoms, including fever, chills, sweats. She admits to 50 pounds of weight loss over the past 8 months. She otherwise has no significant problems. Social history is significant for substantial smoking history, however she now says she smokes about 3 cigarettes per day. She denies alcohol use, denies other drug use. She lives with her boyfriend, and currently is disabled. 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 Her family history is significant for a mother with diabetes mellitus, father with blood clots, and a son with atrial fibrillation. In the emergency department, the patient had labs which demonstrated a hypokalemia at 3.0, negative troponin, mildly elevated white count at 13.8. She was mildly tachycardic with a heart rate 116, however vitals were otherwise stable. She did have a chest x-ray which demonstrated large left effusion, increased in size from prior exam with minimal right effusion with patchy opacity in the mid and lower lung zone concerning for atelectasis versus pneumonia. Past Med Surg Social Fam HX - Past Medical History Medical history: cancer, other Additional medical history: pelvic pain, lower back pain with lower limb dysesthesias, endometriosis, adenomyosis Psychiatric history: anxiety, depression - Past Surgical History Surgical History: hysterectomy Additional surgical history: Abdominal surgery - Social History Smoking Status: Current some day smoker Smokeless Tobacco Status: No Alcohol use: none Drug use: none - Family History Brother Hx Family Cancer: Yes (prostate) Sister Hx Family Endocrine Disorder: Yes (DM2) Internal Medicine - H&P: Meds Esomeprazole Magnesium [Nexium] 20 mg PO DAILY 05/10/18 [History] Gabapentin [Neurontin] 600 mg PO TID 05/11/18 [History] OxyCODONE Immed Rel [Roxicodone 15 MG] 15 mg PO Q8HR 05/11/18 [History] Quetiapine Fumarate [Seroquel] 50 mg PO HS PRN 05/11/18 [History] diazePAM [Valium] 5 mg PO BID 06/15/18 [History] Allergy/AdvReac Type Severity Reaction Status Date / Time steroid shot Allergy See Uncoded 05/28/18 11:11 Comments All Systems PM: A 10-system review of systems was performed and is negative for pertinent fi ndings except as documented above in the HPI. Review of systems: Constitutional: Denies fevers, chills. Admits to weight loss, generalized fatigue Head/Neck: Denies HAMILTON, neck stiffness EENT: Denies vision changes/blurriness, rhinorrhea, congestion, sore throat CVS: Denies chest pain, palpitations, RODG[place], orthopnea, edema, PND Pulm: Patient admits to shortness of breath, cough. GI: Denies nausea, vomiting, diarrhea, constipation, melena, hematemasis. Does continue to have some mild abdominal pain. : Denies dysuria, increased frequency, urgency, hematuria Heme: Denies ease of bleeding or bruising MSK: Denies joint pain, limited ROM Skin: Denies rashes, ulcers, color changes Neuro: Denies HAMIL[place], paresthesias, focal deficits, ataxia - Constitutional Vitals: Temp Pulse Resp BP Pulse Ox 98.6 F 116 16 125/85 92 06/15/18 22:05 06/15/18 22:05 06/15/18 22:05 06/15/18 22:05 06/15/18 22:05 Exam: Gen: Vitals noted. No acute distress. Eyes: anicteric sclerae, moist conjunctivae; no lid-lag; Pupils equal and reactive to light HENT: Atraumatic; oropharynx clear with moist mucous membranes and no mucosal ulcerations; normal hard and soft palate Neck: Trachea midline; supple, no thyromegaly or lymphadenopathy Cardiac: RRR, no murmur, +S1/S2 Pulmonary: Markedly diminished in left lung. No rhonchi, wheezes, rales. Abdomen: soft, nontender, no guarding. No masses or hepatosplenomegaly. Vertical incision scar is noted with right-sided colectomy bag in place. Skin surrounding appears well-healing. MSK: ROM intact, no joint swelling noted Extremities: Trace b/l LE edema, nontender calf, no cyanosis or clubbing Skin: Normal temperature, turgor and texture; no rash, ulcers or subcutaneous nodules Neuro: moves all extremities, no focal deficits. Psych: Appropriate mood and behavior. A&Ox3 Internal Med - H&P Results - Labs CBC & Chem 7: 06/15/18 18:45 06/15/18 18:45 Labs: Short CBC 06/15/18 Range/Units 18:45 WBC 13.8 H (4.3-11.1) K/mcL Hgb 15.8 H (11.5-15.4) g/dL Hct 47.0 H (35.3-44.9) % Plt Count 341 (140-400) K/mcL Neutrophils # 10.8 H (1.6-8.9) K/mcL BMP 06/15/18 18:45 Sodium 137 Potassium 3.0 L Chloride 99 Carbon Dioxide 26 BUN 8 Creatinine 0.53 L Glucose 120 H Calcium 9.5 Cardiac Enzymes 06/15/18 Range/Units 18:45 Troponin I 0.03 (< 0.04) ng/mL - Assessment and plan (1) Pleural effusion Current Visit: Yes Status: Acute Assessment and plan: Large left pleural effusion, likely malignant in nature Patient is having significant shortness of breath as result of this pleural effusion She has required thoracentesis in the past We will consult IR for drainage in the morning Order fluid analysis as well Patient is agreeable to this plan (2) Hypokalemia Current Visit: Yes Status: Acute Assessment and plan: Hypokalemia, potassium 3.0 We will replace this with 40 mEq KCl by mouth 2 (3) Abdominal carcinomatosis Current Visit: No Status: Chronic Assessment and plan: Abdominal carcinomatosis, status post colectomy Patient follows with hematology and oncology as outpatient She has not yet devise a treatment plan, and she seems to have poor knowledge of her disease (4) Tobacco abuse Current Visit: No Status: Chronic Assessment and plan: The patient has dropped significantly the amount of cigarettes she smokes per day We will give patches as needed (5) Back pain Current Visit: No Status: Chronic Assessment and plan: Continue home pain meds Qualifiers: Back pain location: back pain in unspecified location Chronicity: chronic Back pain laterality: unspecified Qualified Code(s): M54.9 - Dorsalgia, unspecified; G89.29 - Other chronic pain (6) DVT prophylaxis Current Visit: No Status: Acute Assessment and plan: Subcutaneous heparin - Time Spent With Patient Total time spent is greater than 50% in coordination of care (as documented) at patient's floor/unit and/or counseling patient:
[2018-06-15] MEDS: *HR* OxyCODONE Immed Rel 15 MG TABLET PO SCH (23:41)
[2018-06-15] MEDS: Gabapentin 300 MG CAPSULE PO SCH (23:41)
[2018-06-15] MEDS: diazePAM 5 MG TABLET PO SCH (23:41)
[2018-06-16 04:28] LABS: Basophils # 0.1 K/mcL (0.0-0.2); Basophils % 0.6 %; Eosinophils # 0.1 K/mcL (0.0-0.6); Eosinophils % 0.7 %; Hematocrit 41.3 % (35.3-44.9); Immature Granulocytes % 0.5 % (0-4); Lymphocytes # 1.9 K/mcL (0.6-4.6); Lymphocytes % 18.3 %; Mean Corpuscular HGB Conc 33.9 g/dL (31.6-35.5); Mean Corpuscular Hemoglobin 28.6 pg (28.0-33.3); Mean Corpuscular Volume 84.5 fL (83.0-100.0); Mean Platelet Volume 11.8 fL (9.4-12.4); Monocytes # 1.3 K/mcL (0.0-1.3); Monocytes % 13.1 %; Neutrophils # 6.8 K/mcL (1.6-8.9); Platelet Count 307 K/mcL (140-400); Red Blood Count 4.89 M/mcL (3.82-4.97); Red Cell Distribution Width 14.6 % (11.5-14.5); Segmented Neutrophils % 66.8 %
[2018-06-16 04:31] LABS: INR 1.3; Prothrombin Time 14.1 Seconds (9.4-12.1)
[2018-06-16 04:46] LABS: BUN/Creatinine Ratio 18 (6-26); Blood Urea Nitrogen 9 mg/dL (6-20); Calcium 8.8 mg/dL (8.6-10.3); Carbon Dioxide 24 mEq/L (23-29); Chloride 102 mEq/L (98-107); Glucose 103 mg/dL (70-105); Lactate Dehydrogenase 160 Units/L (140-271); Magnesium 1.9 mg/dL (1.6-2.6); Osmolality,Calculated 279 (280-300); Phosphorous 4.3 mg/dL (2.7-4.5); Potassium 3.1 mEq/L (3.5-5.1); Sodium 135 mEq/L (136-145); eGFR For Non-African Americans > 60 (> 60)
[2018-06-16] MEDS: *HR* Heparin 5,000 UNIT/ML VIAL SQ SCH ×3 (06:33→21:34)
--- NOTE | 2018-06-16 08:16 | Internal Med Progress Note ---
Hospitalist Progress Note - Encounter Date of Encounter: 06/16/18 Time of Encounter: 10:10 - Subjective Interval History: awake, family present. sitting upright in bed on room air. no sob as long as no exertion but even walking to bathroom + sob. Sometimes difficulty with prolonged conversation with sob. + cough, no sputum, no wheezing, + orthopnea, neg for edema in legs or abd. ostomy bag with usual loos brown stool. No change in outptu freq. No fevers, chills, rash. No chest pain, palpitations. - Exam Vitals: Temp Pulse Resp BP Pulse Ox 98.4 F 110 17 112/90 93 06/16/18 07:33 06/16/18 07:33 06/16/18 07:33 06/16/18 07:33 06/16/18 07:33 Exam: General: awake, alert, appears stated age HEENT:EOM intact, pupils equal, round, moist mucus membranes, no conjunctival pallor or scleral icterus Neck: supple, trachea midline Cardiovascular: tachy rate and reg rhythm, normal S1 & S2, no rubs, murmurs or gallops. No JVD. no lower extremity edema Lungs:Normal breath sounds right lung, left posterior field with no air movement appreciated until half way up lung fileds, no wheezing, rhonchi or crackles. Normal respiratory effort on room air Abdomen:Soft, non-tender, non-distended, no rigidity, + bowel sounds, ostomy bag with loose brown stool Neurological: AAOx3 Skin:Normal color, no rash, no pallor, no jaundice - Assessment and Plan (1) Pleural effusion Current Visit: Yes Status: Acute Assessment and Plan: Large left pleural effusion, suspect malignant in nature IR consulted on admission for thoracentesis fluid analysis ordered including cytology -pending work up may consider pulm consult this admit (2) Abdominal carcinomatosis Current Visit: No Status: Chronic Assessment and Plan: Abdominal carcinomatosis, status post colectomy Patient follows with hematology and oncology as outpatient She has not yet devise a treatment plan pending work up will consider oncology consult (3) Hypokalemia Current Visit: Yes Status: Acute Assessment and Plan: Hypokalemia, potassium 3.0, 3.1 40 mEq KCl by mouth 2 today and fu in AM, mag 1.9 (4) Tobacco abuse Current Visit: No Status: Chronic Assessment and Plan: cessation education if desires nicotine patch will order, none at this time (5) Back pain Current Visit: No Status: Chronic Assessment and Plan: Continue home pain meds (6) Shortness of breath Current Visit: Yes Status: Acute Assessment and Plan: 2/2 pleural effusion CXR is from outpt oncology office 06/15: She did have a chest x-ray which de monstrated large left effusion, increased in size from prior exam with minimal right effusion with patchy opacity in the mid and lower lung zone concerning for atelectasis versus pneumonia. diagnositc and therapeutic thoracentesis, IR consulted last night prn O2 Afebrile/ Leukocytosis resolved without intervention, will repeat CXR after thoracentesis to eval for pna (7) Tachycardia Current Visit: Yes Status: Acute (8) DVT prophylaxis Current Visit: No Status: Acute Assessment and Plan: Subcutaneous heparin - Time Spent with Patient Total time spent is greater than 50% in coordination of care (as documented) at patient's floor/unit and/or counseling patient: 25 - 35 minutes Plan of Care Discussed with: patient Internal Medicine: Result - Labs CBC & Chem 7: 06/16/18 03:46 06/16/18 03:46 Labs: Short CBC 06/15/18 06/16/18 Range/Units 18:45 03:46 WBC 13.8 H 10.1 (4.3-11.1) K/mcL Hgb 15.8 H 14.0 D (11.5-15.4) g/dL Hct 47.0 H 41.3 (35.3-44.9) % Plt Count 341 307 (140-400) K/mcL Neutrophils # 10.8 H 6.8 (1.6-8.9) K/mcL BMP 06/15/18 06/16/18 18:45 03:46 Sodium 137 135 L Potassium 3.0 L 3.1 L Chloride 99 102 Carbon Dioxide 26 24 BUN 8 9 Creatinine 0.53 L 0.49 L Glucose 120 H 103 Calcium 9.5 8.8 Cardiac Enzymes 06/15/18 Range/Units 18:45 Troponin I 0.03 (< 0.04) ng/mL - ABG Interpretation ABG results: PT/INR, D-dimer PT 14.1 Seconds (9.4-12.1) H 06/16/18 03:46 Consult Discharge Plan - Plan Referrals: Shae Russell, SERVICE DEVELOPER [Primary Care Provider] - (5) Back pain Qualifiers: Back pain location: back pain in unspecified location Chronicity: chronic Back pain laterality: unspecified Qualified Code(s): M54.9 - Dorsalgia, unspecified; G89.29 - Other chronic pain
[2018-06-16] MEDS: *HR* OxyCODONE Immed Rel 15 MG TABLET PO SCH ×2 (08:27→15:09)
[2018-06-16] MEDS: diazePAM 5 MG TABLET PO SCH ×2 (08:27→21:33)
[2018-06-16] MEDS: Gabapentin 300 MG CAPSULE PO SCH ×3 (08:27→21:32)
[2018-06-16 13:30] LABS: RBC,Pleural Fluid 0.009 M/mcL
[2018-06-16 13:36] LABS: Amylase,Pleural Fluid 10 Units/L (No Ref Range); Glucose,Pleural Fluid 98 mg/dL (No Ref Range)
[2018-06-16 14:09] LABS: Appearance of Pleural Fl Cloudy (Clear)
[2018-06-17] MEDS: *HR* OxyCODONE Immed Rel 15 MG TABLET PO SCH ×3 (00:38→15:34)
[2018-06-17 05:09] LABS: Basophils # 0.1 K/mcL (0.0-0.2); Basophils % 0.7 %; Eosinophils # 0.1 K/mcL (0.0-0.6); Eosinophils % 1.1 %; Hematocrit 39.5 % (35.3-44.9); Hemoglobin 13.3 g/dL (11.5-15.4); Immature Granulocytes % 0.4 % (0-4); Lymphocytes # 1.6 K/mcL (0.6-4.6); Lymphocytes % 19.6 %; Mean Corpuscular HGB Conc 33.7 g/dL (31.6-35.5); Mean Corpuscular Hemoglobin 28.7 pg (28.0-33.3); Mean Corpuscular Volume 85.1 fL (83.0-100.0); Mean Platelet Volume 11.4 fL (9.4-12.4); Monocytes # 1.2 K/mcL (0.0-1.3); Monocytes % 14.2 %; Neutrophils # 5.3 K/mcL (1.6-8.9); Platelet Count 275 K/mcL (140-400); Red Blood Count 4.64 M/mcL (3.82-4.97); Red Cell Distribution Width 14.5 % (11.5-14.5)
[2018-06-17] MEDS: *HR* Heparin 5,000 UNIT/ML VIAL SQ SCH (05:25)
[2018-06-17 05:30] LABS: BUN/Creatinine Ratio 25 (6-26); Blood Urea Nitrogen 13 mg/dL (6-20); Calcium 8.8 mg/dL (8.6-10.3); Carbon Dioxide 25 mEq/L (23-29); Chloride 102 mEq/L (98-107); Glucose 123 mg/dL (70-105); Osmolality,Calculated 279 (280-300); Potassium 3.5 mEq/L (3.5-5.1); Sodium 134 mEq/L (136-145); eGFR For Non-African Americans > 60 (> 60)
[2018-06-17] MEDS: Gabapentin 300 MG CAPSULE PO SCH ×2 (08:31→15:34)
[2018-06-17] MEDS: diazePAM 5 MG TABLET PO SCH (08:31)
[2018-06-17] MEDS ORDERED: Acetaminophen 325 MG TABLET PO PRN (09:26)
--- NOTE | 2018-06-17 10:32 | Internal Med Progress Note ---
Hospitalist Progress Note - Encounter Time of Encounter: 10:20 - Subjective Interval History: Patient seen and examined. No acute events overnight. Patient is resting comfortably in bed watching TV. Patient states she doing good. States she feels back to normal. States that the thoracentesis yesterday helped a lot. Denies any difficulty breathing. Denies cough. Denies chest pain. Denies swelling. Denies abdominal pain. Denies nausea/vomiting. Denies bowel changes. - Exam Vitals: Temp Pulse Resp BP Pulse Ox 98.9 F 100 16 102/75 90 06/17/18 06:56 06/17/18 06:56 06/17/18 06:56 06/17/18 06:56 06/17/18 06:56 Exam: General: Normal body habitus. Alert and oriented x3. No acute distress. Head: atraumatic, normocephalic. Eye: pupils equal and round. Sclera anicteric. EOMI. Neck: supple. Trachea midline. Lungs: CTAB. No rhonchi, rales, or wheezing. Decreased breath sounds at left lower lobe. Cardiovascular: Normal S1 & S2. No rubs or gallops. No JVD. Pulse regular. Abdomen: Colostomy bag with brown loose stools. Normal bowel sounds. Nontender to palpation. No guarding, no rigidity, no rebound. Extremities: No joint swelling, edema, or clubbing. Nontender. Skin: warm, dry, and intact. - Assessment and Plan (1) Pleural effusion Current Visit: Yes Status: Acute (2) DVT prophylaxis Current Visit: No Status: Acute (3) Hypokalemia Current Visit: Yes Status: Acute (4) Tobacco abuse Current Visit: No Status: Chronic (5) Abdominal carcinomatosis Current Visit: No Status: Chronic (6) Back pain Current Visit: No Status: Chronic (7) Shortness of breath Current Visit: Yes Status: Acute (8) Tachycardia Current Visit: Yes Status: Acute - Time Spent with Patient Total time spent is greater than 50% in coordination of care (as documented) at patient's floor/unit and/or counseling patient: Internal Medicine: Result - Labs CBC & Chem 7: 06/17/18 04:42 06/17/18 04:42 Labs: Short CBC 06/17/18 Range/Units 04:42 WBC 8.3 (4.3-11.1) K/mcL Hgb 13.3 (11.5-15.4) g/dL Hct 39.5 (35.3-44.9) % Plt Count 275 (140-400) K/mcL Neutrophils # 5.3 (1.6-8.9) K/mcL BMP 06/17/18 04:42 Sodium 134 L Potassium 3.5 Chloride 102 Carbon Dioxide 25 BUN 13 Creatinine 0.53 L Glucose 123 H Calcium 8.8 - ABG Interpretation ABG results: PT/INR, D-dimer PT 14.1 Seconds (9.4-12.1) H 06/16/18 03:46 - Impressions Impressions Chest X-Ray 06/16/18 00:00 IMPRESSION: 1. Decreased now moderate to large left pleural effusion status post thoracentesis with no evident left pneumothorax. 2. Decrease in associated basilar passive atelectasis. 3. Trace right pleural effusion with minimal right basilar atelectasis. 4. Pulmonary vascular congestion. D/ / Dane Deleon MD / Dane Deleon MD Interpreting Provider: Dane Deleon MD Thoracentesis 06/16/18 00:00 IMPRESSION: Successful ultrasound-guided left thoracentesis. D/ / Dane Deleon MD / Dane Deleon MD Interpreting Provider: Dane Deleon MD Chest X-Ray 06/17/18 06:00 IMPRESSION: Stable examination with moderate to large partially loculated left pleural effusion. D/ / Hayden Reyna MD / Hayden Reyna MD Interpreting Provider: Hayden Reyna MD Consult Discharge Plan - Plan Referrals: Shae Russell, [employer] [Primary Care Provider] - (6) Back pain Qualifiers: Back pain location: back pain in unspecified location Chronicity: chronic Back pain laterality: unspecified Qualified Code(s): M54.9 - Dorsalgia, unsp ecified; G89.29 - Other chronic pain
[2018-06-17 11:59] VITALS: BP 103/80
--- NOTE | 2018-06-17 13:52 | Discharge Summary ---
<Sheila Garcia - Last Filed: 06/17/18 13:49> Orders not resulted at time of discharge: Pending orders 06/16/18 08:13 Cytology [PTH] Routine 06/16/18 11:11 Culture,Anaerobic [RM] Routine Culture,Body Fluid [RM] Routine Fungal Culture [MYC] Routine Date of Encounter: 06/17/18 Time of Encounter: 10:20 - Discharge Diagnosis (1) Pleural effusion Priority: Primary Status: Acute (2) DVT prophylaxis Priority: Secondary Status: Acute (3) Hypokalemia Priority: Primary Status: Acute (4) Tobacco abuse Priority: Secondary Status: Chronic (5) Abdominal carcinomatosis Priority: Secondary Status: Chronic (6) Back pain Priority: Secondary Status: Chronic Qualifiers: Back pain location: back pain in unspecified location Chronicity: chronic Back pain laterality: unspecified Qualified Code(s): M54.9 - Dorsalgia, unspecified; G89.29 - Other chronic pain (7) Shortness of breath Priority: Primary Status: Acute (8) Tachycardia Priority: Primary Status: Acute Hospital course: Ms. Warren is a 52 year old female with history of abdominal carcinomatosis, pleural effusion. The patient recently was admitted to the hospital for abdominal pain and was found to have C. difficile colitis which led to the diagnosis of abdominal carcinomatosis. She was discharged from the hospital on 05/17/18 status post partial colectomy. She now returns to the hospital with complaints of 1 weeks history of shortness of breath. She states this started slowly, but that gradually worsened. In the emergency department, the patient had labs which demonstrated a hypokalemia at 3.0, negative troponin, mildly elevated white count at 13.8. She was mildly tachycardic with a heart rate 116, however vitals were otherwise stable. She did have a chest x-ray which demonstrated large left effusion, increased in size from prior exam with minimal right effusion with patchy opacity in the mid and lower lung zone concerning for atelectasis versus pneumonia. Mild hypokalemia was repleted and is resolved. Thoracentesis was performed by IR with removal of ~1.6L. Pleural fluid showed red blood cells and pleocytosis. Pleural fluid was exudative and is suspicious for malignancy. Other pleural fluid results, including gram stain and cytology, are pending. After thoracentesis, patient has had improvement of symptoms. States she feels back to normal. Denies any difficulty breathing. Denies cough. Denies chest pain. Denies swelling. Denies abdominal pain. Denies nausea/vomiting. Denies bowel changes. CXR today is stable with mod-large partially loculated left pleural effusion. Oncology was called who recommended discharge since thoracentesis was done. Recommends patient to attend Oncology appointment tomorrow with Dr. Nieto so treatment can be initiated vignesh. - Time Spent with Patient Total time spent providing and/or coordinating discharge services: Greater than 30 minutes (42 minutes) - Discharge Medications Home Medications: Esomeprazole Magnesium [Nexium] 20 mg PO DAILY 05/10/18 [History] Gabapentin [Neurontin] 600 mg PO TID 05/11/18 [History] OxyCODONE Immed Rel [Roxicodone 15 MG] 15 mg PO Q8HR 05/11/18 [History] Quetiapine Fumarate [Seroquel] 50 mg PO HS PRN 05/11/18 [History] diazePAM [Valium] 5 mg PO BID 06/15/18 [History] Allergies/Adverse Reactions: Allergy/AdvReac Type Severity Reaction Status Date / Time steroid shot Allergy See Uncoded 05/28/18 11:11 Comments Date of admission: 06/16/18 16:14 Primary care physician: Shae Russell CNP Consults: 06/15/18 22:38 Consult to Nutrition [CONS] Routine Comment: Consulting Provider: NUTRITION Reason for Dietary Consult: MST Score 06/15/18 23:24 Consult to Interventional Radiology [CONS] Stat Consulting Provider: Radiology Interventional Cols Reason for Consult: pleural effusions thoracentesis Time Notified: 21:00 Call Completed: Yes Discharging clinician: Sheila Garcia Anticipated date of discharge: 06/17/18 - Constitutional Vitals: Temp Pulse Resp BP Pulse Ox 98.3 F 87 15 103/80 95 06/17/18 11:52 06/17/18 11:52 06/17/18 11:52 06/17/18 11:52 06/17/18 11:52 Exam: General: Normal body habitus. Alert and oriented x3. No acute distress. Head: atraumatic, normocephalic. Eye: pupils equal and round. Sclera anicteric. EOMI. Neck: supple. Trachea midline. Lungs: CTAB. No rhonchi, rales, or wheezing. Decreased breath sounds at left lower lobe. Cardiovascular: Normal S1 & S2. No rubs or gallops. No JVD. Pulse regular. Abdomen: Colostomy bag with brown loose stools. Normal bowel sounds. Nontender to palpation. No guarding, no rigidity, no rebound. Extremities: No joint swelling, edema, or clubbing. Nontender. Skin: warm, dry, and intact. - Patient Status Disposition: Home, Self-Care Condition: Good - Discharge Instructions Follow Up With: Shae Russell CNP [Primary Care Provider] - Additional Instructions: Please attend appointment with oncology Dr. Nieto on 06/18. - Diet and Activity Activity: increase activity as tolerated Diet: advance to your usual diet <Elissa Randall - Last Filed: 06/17/18 15:24> Orders not resulted at time of discharge: Pending orders 06/15/18 18:52 ECG 12 lead ECG [ECG] Stat 06/16/18 08:13 Cytology [PTH] Routine 06/16/18 11:11 Culture,Anaerobic [RM] Routine Culture,Body Fluid [RM] Routine Fungal Culture [MYC] Routine 06/16/18 11:26 EKG [ECG 12 lead ECG] [ECG] Routine - Discharge Diagnosis (1) Pleural effusion Status: Acute (2) DVT prophylaxis Status: Acute (3) Hypokalemia Status: Acute (4) Tobacco abuse Status: Chronic (5) Abdominal carcinomatosis Status: Chronic (6) Back pain Status: Chronic Qualifiers: Back pain location: back pain in unspecified location Chronicity: chronic Back pain laterality: unspecified Qualified Code(s): M54.9 - Dorsalgia, unspecified; G89.29 - Other chronic pain (7) Shortness of breath Status: Acute (8) Tachycardia Status: Acute Hospital course: Ms. Warren is a 52 year old female - Time Spent with Patient Total time spent providing and/or coordinating discharge services: Date of admission: 06/16/18 16:14 Primary care physician: Shae Russell CNP Consults: 06/15/18 22:38 Consult to Nutrition [CONS] Routine Comment: Consulting Provider: NUTRITION Reason for Dietary Consult: MST Score 06/15/18 23:24 Consult to Interventional Radiology [CONS] Stat Consulting Provider: Radiology Interventional Cols Reason for Consult: pleural effusions thoracentesis Time Notified: 21:00 Call Completed: Yes - Constitutional Vitals: Temp Pulse Resp BP Pulse Ox 98.3 F 87 15 103/80 95 06/17/18 11:52 06/17/18 11:52 06/17/18 11:52 06/17/18 11:52 06/17/18 11:52 - Attending Attestation I examined this patient and my medical decision-making was reviewed with the Resident Physician Dr Garcia. I agree with the documented findings, disposition and treatment plan as described except to the extent set forth below. Ms Warren was admitted with recurrent Left lung effusion with known hx Abdominal carcinomatosis being followed outpt by Onc and not yet on treatment. She had IR thoracentesis and fluid sent for infectious gutierrez and cytology that remain pending at time of dc. Case was discussed with oncology and they prefer for her to dc to home today so may attend oncology appt tomorrow to begin treatment. Studies pending at dc can be followed up outpt by her Oncology team. dc to hoem in stable condition with appt at oncology tomorrow awake, alert, feels back to baseline with IR drainage of fluid yesterday despite residual loculated effusion. no sob with exertion, denies orthopnea, no chest pain, palpitations fevers or chills. gen- alert, awake,appears stated age cv- reg rate and rhythm, normal s1,s2, no murmurs appreciated lungs- ctabl, no wheezing, rhonchi or crackles, diminished left base but improved aeration from yesterday abd- soft, non tender, non distended, + bs neuro- AAOx3 Pleural effusion Large left pleural effusion, suspect malignant in nature IR consulted on admission for thoracentesis 06/16 with 1600 cc removed and studies including cytology sent and pending at dc, fu with onoclogy re results CXR post thoracentesis shows large loculated effusion, no consolidation/pna; clinically returned to baseline post thora -fu and further treatment as per oncology as case was d/w them today and preference for pt dc to home otday and attend already set up appt for tomorrow to begin treatment, defer fu and further interventions to her established oncology team -fluid cx ngtd Abdominal CArcinamatosis Abdominal carcinomatosis, status post colectomy Patient follows with hematology and oncology as outpatient, appt 06/18 Hypokalemia- repleted this admit, resolved Sinus TAchycardia, asx, improved with thoracentesis
--- NOTE | 2018-06-17 15:50 | Physician Discharge Referral ---
<Sheila Garcia - Last Filed: 06/17/18 15:47> Home Health/Hosp Referral Info Transfer to: Home Health Attending Provider: Dr. Randall Provider in Charge Post Discharge: PCP - Diagnosis (1) Pleural effusion Priority: Primary Status: Acute (2) DVT prophylaxis Priority: Secondary Status: Acute (3) Hypokalemia Priority: Primary Status: Acute (4) Tobacco abuse Priority: Secondary Status: Chronic (5) Abdominal carcinomatosis Priority: Secondary Status: Chronic (6) Back pain Priority: Secondary Status: Chronic (7) Shortness of breath Priority: Primary Status: Acute (8) Tachycardia Priority: Primary Status: Acute - Respiratory Orders Smoking Cessation: Smoking cessation has been advised. For more information, call the [place] Tobacco Quit Line at 5-455-SWFPNOW. - Services Needed Following services are medically necessary services: Nursing, Home Health Aide - Transfer Medications Home Medications: Esomeprazole Magnesium [Nexium] 20 mg PO DAILY 05/10/18 [History] Gabapentin [Neurontin] 600 mg PO TID 05/11/18 [History] OxyCODONE Immed Rel [Roxicodone 15 MG] 15 mg PO Q8HR 05/11/18 [History] Quetiapine Fumarate [Seroquel] 50 mg PO HS PRN 05/11/18 [History] diazePAM [Valium] 5 mg PO BID 06/15/18 [History] Allergies/Adverse Reactions: Allergy/AdvReac Type Severity Reaction Status Date / Time steroid shot Allergy See Uncoded 05/28/18 11:11 Comments Certification: Further, I certify that my clinical findings support that this patient is homebound (i.e. absences from home require considerable and taxing effort and are for medical reasons or holiness services or infrequently or short duration when for other reasons) because: Homebound Reason: Patient requires assistance of a person or device to safely leave home Attestation: My signature below is to certify that this patient is under my care and that I, or nurse practitioner, or a physician's critical care physician assistant working with me, has a [id number] encounter with this patient. <Elissa Randall - Last Filed: 06/17/18 15:54> - Diagnosis (1) Pleural effusion Status: Acute (2) DVT prophylaxis Status: Acute (3) Hypokalemia Status: Acute (4) Tobacco abuse Status: Chronic (5) Abdominal carcinomatosis Status: Chronic (6) Back pain Status: Chronic (7) Shortness of breath Status: Acute (8) Tachycardia Status: Acute - Respiratory Orders Smoking Cessation: Smoking cessation has been advised. For more information, call the [place] Tobacco Quit Line at 4-804-CAAD-NOW. Certification: Further, I certify that my clinical findings support that this patient is homebound (i.e. absences from home require considerable and taxing effort and ar e for medical reasons or holiness services or infrequently or short duration when for other reasons) because: Attestation: My signature below is to certify that this patient is under my care and that I, or nurse practitioner, or a physician's critical care physician assistant working with me, has a [id number] encounter with this patient.
--- NOTE | 2018-06-19 17:08 | Electrocardiograph Report ---
[place] [address] Test Date: 2018-06-15 Pat Name: Sangeetha Warren Department: EXAM11 Room: 2NE19 Gender: F Reed Dipper: : 1965 Requested By: Crispin Henry Order Number: [id number] Reading MD: Fuentes Mcneal Measurements Intervals [place] Rate: 117 P: 59 MS: 139 QRS: 39 QRSD: 80 T: 248 QT: 291 QTc: 406 Interpretive Statements Sinus tachycardia Ventricular premature complex Abnormal R-wave progression, early transition Borderline repolarization abnormality Electronically Signed On 06-19-2018 17:06:35 EDT by Fuentes Mcneal
--- NOTE | 2018-06-19 17:14 | Electrocardiograph Report ---
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
== END 2018-06-17 17:46 | disposition home or self-care (01) | DRG 694 ==
LOC: EMEROOARM 18:01 → 2NENU 18:01 → SUATTDRO 21:30 → 2NENU 21:50
PROVIDERS: ADMIT Family Medicine; ATTEND Internal Medicine

== ENCOUNTER 2018-09-15 19:42 | Inpatient (IN) ==
[2018-09-15] MEDS ORDERED: 0.9 % Sodium Chloride 1,000 ML IVC ONE ×2 (19:55→21:38)
[2018-09-15] MEDS ORDERED: Ondansetron 4 MG/2 ML VIAL IVP ONE (19:55)
--- NOTE | 2018-09-15 20:10 | Emergency Department Note ---
Disposition Clinical Impression: Drug-induced nausea and vomiting, Severe dehydration, Dehydration, Hypokalemia, Elevated troponin, Metabolic alkalosis Intractable vomiting with nausea Qualifiers: Vomiting type: unspecified Qualified Code(s): R11.2 - Nausea with vomiting, unspecified Disposition: Admitted As Inpatient Condition: Fair Referrals: NONE,PCP [Primary Care Provider] - Forms: ED Satisfaction Letter General Adult HPI - General Chief complaint: ED Nausea/Vomiting/Diarrhea Stated complaint: N/V since chemo on the 10th Time Seen by Provider: 09/15/18 19:45 Source: patient Limitations: no limitations Nursing Notes Reviewed: Yes Vital Signs Reviewed: Yes - History of Present Illness HPI Narrative: Patient is a 52 year old female with a 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 She presents from home with 4 days of nausea and vomiting. She had her 3rd round of chemotherapy on the of this month. She is on phenergrine, combazine, and zofran for nausea none have helped. she has not been able to keep any food or liquids down for the past 4 days. Patient also states she has had some diarrhea. Patient has some abdominal pain. Patient feels weak and dehydrated. Patient denies chest pain, SOB, numbness or tingling. Pain Scale: 6 - Related Data Home Medications Medication Instructions Recorded Confirmed Gabapentin [Neurontin] 600 mg PO TID 05/11/18 09/11/18 OxyCODONE Immed Rel [Roxicodone 15 15 mg PO Q8HR 05/11/18 09/11/18 MG] Quetiapine Fumarate [Seroquel] 50 mg PO HS PRN 05/11/18 09/11/18 Previous Rx's Medication Instructions Recorded Ondansetron HCl [Zofran] 4 mg PO Q8HR PRN 30 Days #90 tab 07/17/18 Lidocaine/Prilocaine [Emla] 1 appl TP AD PRN #30 gm 07/25/18 Magic Mouthwash [Magic Mouthwash 10 ml PO QID PRN #240 ml 07/25/18 BLM] Prochlorperazine Maleate 10 mg PO Q6HR PRN #60 tablet 07/25/18 [Compazine] Promethazine [Phenergan] 12.5 mg RC Q6HR PRN #60 supp.rect 08/01/18 Esomeprazole Magnesium [Nexium] 20 mg PO DAILY #30 capsule. 08/06/18 diazePAM [Valium] 5 mg PO BID 30 Days #60 tablet 08/29/18 Famotidine [Pepcid] 20 mg PO BID #60 tablet 08/31/18 Pantoprazole Sodium [Protonix] 40 mg PO DAILY #30 tablet. 09/05/18 Sucralfate [Carafate] 1 gm PO Q6H #120 tablet 09/06/18 Diphenoxylate/Atropine [Lomotil 1 tab PO Q6H PRN 15 Days #60 tablet 09/11/18 2.5 mg/0.025 mg] Allergies Allergy/AdvReac Type Severity Reaction Status Date / Time steroid shot Allergy See Uncoded 09/11/18 09:30 Comments Constitutional: Reports: weakness. 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 she was actively vomiting before physical exam was started. - General Limitations: no limitations General appearance: alert, in no apparent distress - Head Head exam: atraumatic, normocephalic - Eye Eye exam: Present: normal appearance - ENT ENT exam: mucous membranes dry - Neck Neck exam: Present: normal inspection - Chest Chest inspection: Present: normal inspection, symmetric chest wall rise. Absent: tenderness - Respiratory Respiratory exam: Present: normal lung sounds bilaterally. Absent: respiratory distress - Cardiovascular Cardiovascular exam: Present: normal rhythm, tachycardia, +S1, +S2. Absent: systolic murmur, diastolic murmur, +S3, +S4 - Abdominal Exam Abdominal exam: Present: soft, tenderness, normal bowel sounds. Absent: distention, guarding, rebound - Extremities Exam Extremities exam: Absent: tenderness, pedal edema Course Vital Signs Temperature 97.4 F L 09/15/18 19:44 Pulse Rate 130 09/15/18 19:44 Respiratory Rate 18 09/15/18 19:44 Blood Pressure 105/79 09/15/18 19:44 O2 Sat by Pulse Oximetry 92 09/15/18 19:44 Temperature 97.4 F L 09/15/18 19:44 Pulse Rate 114 09/15/18 20:26 Respiratory Rate 22 09/15/18 20:26 Blood Pressure 111/75 09/15/18 20:26 O2 Sat by Pulse Oximetry 95 09/15/18 20:26 Oxygen Delivery Oxygen Delivery Room Air Medical Decision Making - MDM Narrative Medical decision making narrative: CBC, BMP, lactate, ECG, troponin, CXR fluid bolus. Patient appears dry fluid given, zofran given. UA ordered. SCG showed sinus tachycardia possible right atrial enlargement white count 4.6 likely patient will need to be admitted Potassium 2.5: 40 meq IV unable to tolerate any oral medications; lactic acid pending resulted at 2.[address] Tan. - Lab Data Result diagrams: 09/15/18 20:20 09/15/18 20:20 Lab Results 09/15/18 09/15/18 09/15/18 Range/Units 20:20 20:20 20:20 WBC 4.6 D (4.3-11.1) K/mcL RBC 5.41 H (3.82-4.97) M/mcL Hgb 15.6 H D (11.5-15.4) g/dL Hct 45.2 H (35.3-44.9) % MCV 83.5 (83.0-100.0) fL MCH 28.8 (28.0-33.3) pg MCHC 34.5 (31.6-35.5) g/dL RDW 17.1 H (11.5-14.5) % Plt Count 154 (140-400) K/mcL MPV 11.9 (9.4-12.4) fL Immature Gran % 0.4 (0-4) % Seg Neutrophils % 85.6 % Lymphocytes % 9.8 % Monocytes % 3.5 % Eosinophils % 0.0 % Basophils % 0.7 % Neutrophils # 3.9 (1.6-8.9) K/mcL Lymphocytes # 0.5 L (0.6-4.6) K/mcL Monocytes # 0.2 (0.0-1.3) K/mcL Eosinophils # 0.0 (0.0-0.6) K/mcL Basophils # 0.0 (0.0-0.2) K/mcL Sodium 135 L (136-145) mEq/L Potassium 2.5 L* (3.5-5.1) mEq/L Chloride 86 L (98-107) mEq/L Carbon Dioxide 34 H (23-29) mEq/L BUN 37 H (6-20) mg/dL Creatinine 1.13 (0.60-1.20) mg/dL Est GFR ( Amer) > 60 (> 60) Est GFR (Non-Af Amer) 51 L (> 60) BUN/Creatinine Ratio 33 H (6-26) Glucose 152 H (70-105) mg/dL Calculated Osmolality 292 (280-300) Calcium 9.9 (8.6-10.3) mg/dL Troponin I 0.04 H* (< 0.04) ng/mL
[2018-09-15 20:34] LABS: Basophils % 0.7 %; Hematocrit 45.2 % (35.3-44.9); Hemoglobin 15.6 g/dL (11.5-15.4); Immature Granulocytes % 0.4 % (0-4); Lymphocytes # 0.5 K/mcL (0.6-4.6); Lymphocytes % 9.8 %; Mean Corpuscular HGB Conc 34.5 g/dL (31.6-35.5); Mean Corpuscular Hemoglobin 28.8 pg (28.0-33.3); Mean Corpuscular Volume 83.5 fL (83.0-100.0); Mean Platelet Volume 11.9 fL (9.4-12.4); Monocytes # 0.2 K/mcL (0.0-1.3); Monocytes % 3.5 %; Neutrophils # 3.9 K/mcL (1.6-8.9); Platelet Count 154 K/mcL (140-400); Red Blood Count 5.41 M/mcL (3.82-4.97); Red Cell Distribution Width 17.1 % (11.5-14.5); Segmented Neutrophils % 85.6 %
--- NOTE | 2018-09-15 20:37 | Emergency Department Note ---
Disposition Clinical Impression: Drug-induced nausea and vomiting, Severe dehydration Disposition: Admitted As Inpatient Forms: ED Satisfaction Letter General Adult HPI - General Chief complaint: ED Nausea/Vomiting/Diarrhea Stated complaint: N/V since chemo on the Time Seen by Provider: 09/15/18 19:45 Source: patient Limitations: no limitations Nursing Notes Reviewed: Yes Vital Signs Reviewed: Yes - History of Present Illness HPI Narrative: ED ATTESTATION NOTE: I examined this patient and my medical decision-making was reviewed with the Resident Physician/UPSCALE SECURITY OFFICER/PA/Student. I have personally performed a face to face evaluation on this patient & I agree with the documented findings, disposition and treatment plan as described except to the extent set forth below. Patient was seen with transitional resident Dr. JANE REYES. please see copy of his note for details of this encounter Briefly: 52-year-old female history of recently diagnosed adenocarcinoma the appendix has undergone this is her third round of chemotherapy which finished on September 06 comes in with 40s intractable nausea and vomiting weakness. Tachycardic at 1:30 total mucosa patient is been unable keep any of her medications down. Patient has a port access she is getting liter normal saline EKG shows sinus tachycardia patient be getting screening labs IV antiemetics chest x-ray and urinalysis with admission anticipated. Providing 45 minutes critical care service for this patient. Disposition pending Pain Scale: 6 - Related Data Home Medications Medication Instructions Recorded Confirmed Gabapentin [Neurontin] 600 mg PO TID 05/11/18 09/11/18 OxyCODONE Immed Rel [Roxicodone 15 15 mg PO Q8HR 05/11/18 09/11/18 MG] Quetiapine Fumarate [Seroquel] 50 mg PO HS PRN 05/11/18 09/11/18 Previous Rx's Medication Instructions Recorded Ondansetron HCl [Zofran] 4 mg PO Q8HR PRN 30 Days #90 tab 07/17/18 Lidocaine/Prilocaine [Emla] 1 appl TP AD PRN #30 gm 07/25/18 Magic Mouthwash [Magic Mouthwash 10 ml PO QID PRN #240 ml 07/25/18 BLM] Prochlorperazine Maleate 10 mg PO Q6HR PRN #60 tablet 07/25/18 [Compazine] Promethazine [Phenergan] 12.5 mg RC Q6HR PRN #60 supp.rect 08/01/18 Esomeprazole Magnesium [Nexium] 20 mg PO DAILY #30 capsule. 08/06/18 diazePAM [Valium] 5 mg PO BID 30 Days #60 tablet 08/29/18 Famotidine [Pepcid] 20 mg PO BID #60 tablet 08/31/18 Pantoprazole Sodium [Protonix] 40 mg PO DAILY #30 tablet. 09/05/18 Sucralfate [Carafate] 1 gm PO Q6H #120 tablet 09/06/18 Diphenoxylate/Atropine [Lomotil 1 tab PO Q6H PRN 15 Days #60 tablet 09/11/18 2.5 mg/0.025 mg] Allergies Allergy/AdvReac Type Severity Reaction Status Date / Time steroid shot Allergy See Uncoded 09/11/18 09:30 Comments Constitutional: Reports: weakness. 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 - Social History Smoking Status: Current every day smoker Smokeless Tobacco Status: No Alcohol use: Reports: none Drug use: Reports: none Physical Exam - General Limitations: no limitations General appearance: alert, in no apparent distress Course Vital Signs Temperature 97.4 F L 09/15/18 19:44 Pulse Rate 130 09/15/18 19:44 Respiratory Rate 18 09/15/18 19:44 Blood Pressure 105/79 09/15/18 19:44 O2 Sat by Pulse Oximetry 92 09/15/18 19:44 Temperature 97.4 F L 09/15/18 19:44 Pulse Rate 114 09/15/18 20:26 Respiratory Rate 22 09/15/18 20:26 Blood Pressure 111/75 09/15/18 20:26 O2 Sat by Pulse Oximetry 95 09/15/18 20:26 Oxygen Delivery Oxygen Delivery Room Air Medical Decision Making - Lab Data Result diagrams: 09/15/18 20:20 Lab Results 09/15/18 Range/Units 20:20 WBC 4.6 D (4.3-11.1) K/mcL RBC 5.41 H (3.82-4.97) M/mcL Hgb 15.6 H D (11.5-15.4) g/dL Hct 45.2 H (35.3-44.9) % MCV 83.5 (83.0-100.0) fL MCH 28.8 (28.0-33.3) pg MCHC 34.5 (31.6-35.5) g/dL RDW 17.1 H (11.5-14.5) % Plt Count 154 (140-400) K/mcL MPV 11.9 (9.4-12.4) fL Immature Gran % 0.4 (0-4) % Seg Neutrophils % 85.6 % Lymphocytes % 9.8 % Monocytes % 3.5 % Eosinophils % 0.0 % Basophils % 0.7 % Neutrophils # 3.9 (1.6-8.9) K/mcL Lymphocytes # 0.5 L (0.6-4.6) K/mcL Monocytes # 0.2 (0.0-1.3) K/mcL Eosinophils # 0.0 (0.0-0.6) K/mcL Basophils # 0.0 (0.0-0.2) K/mcL
[2018-09-15 21:02] LABS: BUN/Creatinine Ratio 33 (6-26); Blood Urea Nitrogen 37 mg/dL (6-20); Calcium 9.9 mg/dL (8.6-10.3); Carbon Dioxide 34 mEq/L (23-29); Chloride 86 mEq/L (98-107); Glucose 152 mg/dL (70-105); Osmolality,Calculated 292 (280-300); Potassium 2.5 mEq/L (3.5-5.1); Sodium 135 mEq/L (136-145); eGFR For Non-African Americans 51 (> 60)
[2018-09-15] MEDS ORDERED: Potassium Chloride Elixir 20 MEQ/15 ML UDC PO ONE (21:09)
[2018-09-15] MEDS ORDERED: *HR* HYDROmorphone (PF) 1 MG/ML SYRINGE IVP ONE (21:43)
[2018-09-15] MEDS ORDERED: *HR* Promethazine 25 MG/ML VIAL IVP ONE (21:43)
[2018-09-15] MEDS ORDERED: Metoclopramide 10 MG/2 ML VIAL IVP PRN (23:04)
[2018-09-15] MEDS ORDERED: Prochlorperazine 10 MG/2 ML VIAL IVP PRN (23:04)
[2018-09-15] MEDS ORDERED: Diphenoxylate/Atropine 1 TAB TABLET PO PRN (23:05)
[2018-09-15] MEDS ORDERED: Magic Mouthwash 10 ML UD Cup PO PRN (23:05)
[2018-09-15] MEDS ORDERED: Ringers Solution, Lactated 1,000 ML IVC SCH (23:15)
--- NOTE | 2018-09-15 23:23 | Internal Med History&Physical ---
<Artur Danielle R - Last Filed: 09/16/18 00:27> Date of Encounter: 09/16/18 Time of Encounter: 23:05 Internal Medicine - H&P: HPI Chief complaint: nausea and vomiting Admitted From: Emergency Dept Plans for Post Hospital Care: Home History of present illness: Ms. Warren is a 52 year old female with a history of mucinous adenocarcinoma currently undergoing chemotherapy, cycle #3 done on 09/11/2018. Patient reports that significant nausea and vomiting developed approximate 3-4 days ago. She does not normally experience this after chemotherapy. Reports that she has been unable to keep her medications down. She is able to eat and drink without pain, however she very quickly vomits anything taken orally. Associated fatigue and weakness. Denies sick contacts or recent travel. Denies abdominal pain, distention, hematemesis, chest pain, shortness of breath, change in bowel habits. Denies fever or chills. Evaluation in the ED did reveal hypokalemia of 2.5. EKG with lateral ST depressions. Mildly elevated troponin at 0.04. Patient reports feeling mild to moderate improvement in symptoms since given IV antiemetics and fluid hydration. Past Med Surg Social Fam HX - Past Medical History Medical history: arthritis, cancer, GERD Additional medical history: pelvic pain, lower back pain with lower limb dysesthesias, endometriosis, adenomyosis Psychiatric history: anxiety, depression - Past Surgical History Surgical History: hysterectomy Additional surgical history: Abdominal surgery - tubal ligation - iliostomy - Social History Smoking Status: Current every day smoker Smokeless Tobacco Status: No Alcohol use: none Drug use: none - Family History Brother Hx Family Cancer: Yes (prostate) Sister Hx Family Endocrine Disorder: Yes (DM2) Internal Medicine - H&P: Meds RX: Gabapentin [Neurontin] 600 mg PO TID 05/11/18 [History] RX: OxyCODONE Immed Rel [Roxicodone 15 MG] 15 mg PO Q8HR 05/11/18 [History] RX: Quetiapine Fumarate [Seroquel] 50 mg PO HS PRN 05/11/18 [History] Ondansetron HCl [Zofran] 4 mg PO Q8HR PRN 30 Days #90 tab 07/17/18 [Rx] Lidocaine/Prilocaine [Emla] 1 appl TP AD PRN #30 gm 07/25/18 [Rx] Prochlorperazine Maleate [Compazine] 10 mg PO Q6HR PRN #60 tablet 07/25/18 [Rx] RX: Magic Mouthwash [Magic Mouthwash BLM] 10 ml PO QID PRN #240 ml 07/25/18 [Rx] Promethazine [Phenergan] 12.5 mg RC Q6HR PRN #60 supp.rect 08/01/18 [Rx] RX: Esomeprazole Magnesium [Nexium] 20 mg PO DAILY #30 capsule. 08/06/18 [Rx] RX: diazePAM [Valium] 5 mg PO BID 30 Days #60 tablet 08/29/18 [Rx] RX: Famotidine [Pepcid] 20 mg PO BID #60 tablet 08/31/18 [Rx] RX: Pantoprazole Sodium [Protonix] 40 mg PO DAILY #30 tablet. 09/05/18 [Rx] RX: Sucralfate [Carafate] 1 gm PO Q6H #120 tablet 09/06/18 [Rx] Diphenoxylate/Atropine [Lomotil 2.5 mg/0.025 mg] 1 tab PO Q6H PRN 15 Days #60 tablet 09/11/18 [Rx] Allergy/AdvReac Type Severity Reaction Status Date / Time steroid shot Allergy See Uncoded 09/11/18 09:30 Comments All Systems PM: A 10-system review of systems was performed and is negative for pertinent findings except as documented above in the HPI. - Constitutional Constitutional: fatigue, weakness, no chills, no fever(s), no lethargy - EENT Eyes: no change in vision, no diplopia Nose, mouth and throat: no epistaxis, no hoarseness, no neck pain - Cardiovascular Cardiovascular ROS IM: no chest pain, no diaphoresis, no dyspnea, no edema - Respiratory Respiratory: no cough, no dyspnea, no hemoptysis, no wheezing - Gastrointestinal Gastrointestinal: nausea, vomiting, no abdominal pain, no bloating, no change in stool character, no constipation, no diarrhea, no hematemesis, no hematochezia - Genitourinary Genitourinary: no dysuria, no flank pain - Musculoskeletal Musculoskeletal ROS IM: no muscle cramps, no muscle weakness, no neck pain, no tingling - Integumentary Integumentary IM: no erythema, no rash - Neurological Neurological ROS: no confusion, no dizziness, no focal weakness, no numbness - Psychiatric Psychiatric: anxiety, no confusion, no depression - Hematologic/Lymphatic Hematologic/Lymphatic: no easy bleeding, no easy bruising - Constitutional Vitals: Temp Pulse Resp BP Pulse Ox 97.4 F L 109 19 125/96 97 09/15/18 19:44 09/15/18 22:33 09/15/18 22:33 09/15/18 22:33 09/15/18 22:33 Exam: General: Patient supine in bed, appears mildly uncomfortable, no significant distress HEENT: Atraumatic, pupils PERRLA with EOMI, dry mucous membranes, anicteric sclera, poor dentition Neck: Soft, no lymphadenopathy Cardio: Tachycardic with regular rate and rhythm, no murmurs, rubs, or gallops Respiratory: Clear to auscultation bilaterally, no wheezing, crackles, rhonchi Chest: Pleurx catheter in place to right lateral chest wall, no erythema or drainage Abdomen: Soft, nontender, nondistended, no guarding or rigidity, positive bowel sounds Extremities: No swelling or edema, peripheral pulses 2+ Neuro: Alert and oriented to person, place, and situation, no focal deficits, cranial nerves intact bilaterally Psych: Appropriate mood and affect, conversant Internal Med - H&P Results - Labs CBC & Chem 7: 09/15/18 20:20 09/15/18 20:20 Labs: Short CBC 09/15/18 Range/Units 20:20 WBC 4.6 D (4.3-11.1) K/mcL Hgb 15.6 H D (11.5-15.4) g/dL Hct 45.2 H (35.3-44.9) % Plt Count 154 (140-400) K/mcL Neutrophils # 3.9 (1.6-8.9) K/mcL BMP 09/15/18 20:20 Sodium 135 L Potassium 2.5 L* Chloride 86 L Carbon Dioxide 34 H BUN 37 H Creatinine 1.13 Glucose 152 H Calcium 9.9 Cardiac Enzymes 09/15/18 Range/Units 20:20 Troponin I 0.04 H* (< 0.04) ng/mL - Impressions ITS Impressions Chest X-Ray 09/15/18 19:57 IMPRESSION: No acute cardiopulmonary disease. Persistent moderate partially loculated left pleural effusion with basilar volume loss. D/ / Sean Jimenez MD / Sean Jimenez MD Interpreting Provider: Sean Jimenez MD - Assessment and plan (1) Intractable vomiting with nausea Current Visit: Yes Status: Acute Assessment and plan: Intractable nausea and vomiting, likely related to recent chemotherapy. Significant decrease in tolerated oral intake over past several days Hypokalemia and hemoconcentration evident on lab analysis Nontender abdomen, no evidence of infection Plan: Has received 1 L bolus in ED, will continue rehydration with additional 1 L bolus Clear liquid diet and assess for tolerance IV antiemetics including ondansetron, Compazine, and metoclopramide Consider addition of steroid for antiemetic properties in the a.m. if no improvement Qualifiers: Vomiting type: unspecified Qualified Code(s): R11.2 - Nausea with vomiting, unspecified (2) Dehydration Current Visit: Yes Status: Acute Assessment and plan: Dehydration secondary to poor oral intake and frequent vomiting Plan as above with IV rehydration and antiemetics Clear liquid diet, may advance pending patient improvement (3) Hypokalemia Current Visit: Yes Status: Acute Assessment and plan: Hypokalemia secondary to poor oral intake and frequent vomiting Plan: Currently receiving IV potassium repletion Repeat a.m. BMP and replete potassium as necessary for goal 4.0 IV antiemetics (4) Elevated troponin Current Visit: Yes Status: Acute Assessment and plan: Troponin mildly elevated at 0.04 Patient is without symptoms of ACS EKG does reveal lateral lead ST segment depressions, also present in prior EKG This is likely related to demand ischemia secondary to severe dehydration and tachycardia Plan: Will trend troponin Rehydration and electrolyte management as above (5) Anxiety and depression Current Visit: No Status: Chronic Assessment and plan: History of anxiety and depression Controlled, continue home medications (6) DVT prophylaxis Current Visit: No Status: Acute Assessment and plan: Heparin 5000 subunits every 8 hours (7) Mucinous adenocarcinoma Current Visit: Yes Status: Acute Assessment and plan: Mucinous adenocarcinoma Undergoing chemotherapy with last cycle given on 09/11/2018 Plan: Consider outpatient versus inpatient oncology follow-up pending patient response to treatment - Time Spent With Patient Total time spent is greater than 50% in coordination of care (as documented) at patient's floor/unit and/or counseling patient: Mohit Perez - Last Filed: 09/16/18 01:18> Date of Encounter: 09/16/18 Internal Medicine - H&P: HPI History of present illness: Ms. Warren is a 52 year old female All Systems PM: A 10-system review of systems was performed and is negative for pertinent findings except as documented above in the HPI. - Constitutional Vitals: Temp Pulse Resp BP Pulse Ox 98.6 F 103 18 133/89 97 09/15/18 23:50 09/15/18 23:50 09/15/18 23:50 09/15/18 23:50 09/15/18 23:50 Internal Med - H&P Results - Labs CBC & Chem 7: 09/16/18 00:53 09/15/18 20:20 Labs: Short CBC 09/15/18 09/16/18 Range/Units 20:20 00:53 WBC 4.6 D 4.7 (4.3-11.1) K/mcL Hgb 15.6 H D 14.0 D (11.5-15.4) g/dL Hct 45.2 H 41.0 (35.3-44.9) % Plt Count 154 143 (140-400) K/mcL Neutrophils # 3.9 4.0 (1.6-8.9) K/mcL BMP 09/15/18 20:20 Sodium 135 L Potassium 2.5 L* Chloride 86 L Carbon Dioxide 34 H BUN 37 H Creatinine 1.13 Glucose 152 H Calcium 9.9 Cardiac Enzymes 09/15/18 Range/Units 20:20 Troponin I 0.04 H* (< 0.04) ng/mL - Impressions ITS Impressions Chest X-Ray 09/15/18 19:57 IMPRESSION: No acute cardiopulmonary disease. Persistent moderate partially loculated left pleural effusion with basilar volume loss. D/ / Sean Jimenez MD / Sean Jimenez MD Interpreting Provider: Sean Jimenez MD - Assessment and plan (1) Anxiety and depression Current Visit: No Status: Chronic (2) DVT prophylaxis Current Visit: No Status: Acute (3) Hypokalemia Current Visit: Yes Status: Acute (4) Dehydration Current Visit: Yes Status: Acute (5) Intractable vomiting with nausea Current Visit: Yes Status: Acute Qualifiers: Vomiting type: unspecified Qualified Code(s): R11.2 - Nausea with vomiting, unspecified (6) Elevated troponin Current Visit: Yes Status: Acute (7) Mucinous adenocarcinoma Current Visit: Yes Status: Acute - Time Spent With Patient Total time spent is greater than 50% in coordination of care (as documented) at patient's floor/unit and/or counseling patient: - Attending Attestation I performed a history and physical exam of the patient on 09/15/18 and discussed management with the resident. I reviewed the resident's note and agree with the documented findings and plan of care. 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 She started having more severe chasidy sea/vomiting that started 2 days after and has continued to progress and cannot tolerate PO. In the ER she was notably tachycardic and orthostatic. Labs revealed a potassium of 2.5, Cl 86 and troponin of 0.04 although she denies any chest pain or shortness of breath. She received IVF and was started on potassium supplementation. Physical exam remarkable for pale skin and dry mucous membranes. Chemo port in right upper chest wall. Abdomen with midline surgical scar and ileostomy bag in right flank with dark fluid content. No pedal edema. AAO x 3. Will admit for observation and fluid resuscitation. Cycle anti-emetics for efficacy. Supplement electrolytes. Monitor on telemetry and repeat troponin in the morning; elevation likely secondary to hypoperfusion as she has no clinical signs of ACS. EKG showing some ST segment depressions in the lateral leads. DVT prophylaxis with subQ heparin. JONATAN OSPINA.
[2018-09-16 01:04] LABS: Basophils % 0.4 %; Immature Granulocytes % 0.2 % (0-4); Lymphocytes # 0.5 K/mcL (0.6-4.6); Lymphocytes % 9.9 %; Mean Corpuscular HGB Conc 34.1 g/dL (31.6-35.5); Mean Corpuscular Hemoglobin 28.9 pg (28.0-33.3); Mean Corpuscular Volume 84.5 fL (83.0-100.0); Mean Platelet Volume 12.5 fL (9.4-12.4); Monocytes # 0.2 K/mcL (0.0-1.3); Monocytes % 3.9 %; Platelet Count 143 K/mcL (140-400); Red Blood Count 4.85 M/mcL (3.82-4.97); Segmented Neutrophils % 85.6 %
[2018-09-16] MEDS: Sucralfate 1 GM TABLET PO SCH ×2 (01:04→04:59)
[2018-09-16] MEDS: *HR* OxyCODONE Immed Rel 15 MG TABLET PO PRN (01:04)
[2018-09-16 03:59] LABS: Alanine Aminotransferase 6 Units/L (7-52); Albumin 3.3 g/dL (3.5-5.7); Alkaline Phosphatase 110 Units/L (34-104); Aspartate Amino Transferase 18 Units/L (13-39); BUN/Creatinine Ratio 34 (6-26); Bilirubin,Direct 0.2 mg/dL (0.0-0.2); Bilirubin,Indirect 0.4 mg/dL (0.0-1.2); Bilirubin,Total 0.6 mg/dL (0.3-1.0); Blood Urea Nitrogen 31 mg/dL (6-20); Calcium 9.2 mg/dL (8.6-10.3); Carbon Dioxide 32 mEq/L (23-29); Chloride 94 mEq/L (98-107); Globulin 3.4 g/dL (2.4-3.5); Glucose 117 mg/dL (70-105); Osmolality,Calculated 294 (280-300); Potassium 2.9 mEq/L (3.5-5.1); Sodium 138 mEq/L (136-145); Total Protein 6.7 g/dL (6.4-8.9); eGFR For Non-African Americans > 60 (> 60)
[2018-09-16] MEDS: *HR* Heparin 5,000 UNIT/ML VIAL SQ SCH ×3 (06:07→20:40)
[2018-09-16] MEDS ORDERED: Aspirin 325 MG TABLET PO ONE (06:49)
[2018-09-16 06:57] LABS: INR 1.2; Prothrombin Time 13.1 Seconds (9.4-12.1)
[2018-09-16 07:00] LABS: Activated Partial Thrombo Time 26.8 Seconds (26.0-36.0); BUN/Creatinine Ratio 31 (6-26); Blood Urea Nitrogen 30 mg/dL (6-20); Calcium 9.3 mg/dL (8.6-10.3); Carbon Dioxide 32 mEq/L (23-29); Chloride 93 mEq/L (98-107); Glucose 124 mg/dL (70-105); Osmolality,Calculated 294 (280-300); Potassium 2.8 mEq/L (3.5-5.1); Sodium 138 mEq/L (136-145); eGFR For Non-African Americans > 60 (> 60)
[2018-09-16] MEDS ORDERED: Potassium Chloride Elixir 20 MEQ/15 ML UDC PO ONE (07:04)
[2018-09-16] MEDS ORDERED: diazePAM 5 MG TABLET PO SCH (09:00)
[2018-09-16] MEDS ORDERED: Famotidine 20 MG TABLET PO SCH (09:00)
[2018-09-16] MEDS: 0.9 % Sodium Chloride w KCl 40 MEQ/1,000 ML MLS IVC SCH (09:54)
[2018-09-16] MEDS: Ondansetron 4 MG/2 ML VIAL IVP PRN ×2 (09:54→22:43)
--- NOTE | 2018-09-16 10:19 | Internal Med Progress Note ---
Hospitalist Progress Note - Encounter Date of Encounter: 09/16/18 Time of Encounter: 10:01 - Subjective Interval History: Patient seen and examined this morning. No acute overnight events. Still nauseas and vomiting. Denies chest pain, shortness of breath. Has chronic back pain. - Exam Vitals: Temp Pulse Resp BP Pulse Ox 99.2 F 114 20 117/83 90 09/16/18 06:48 09/16/18 06:48 09/16/18 06:48 09/16/18 06:48 09/16/18 06:48 Exam: General: In no acute distress. Conversant. thin build. frail Respiratory exam: CTAB. no accessory muscle use, rales, rhonchi, wheezes. Pleurex catheter in place. Cardiovascular exam: tachycardic, +S1, +S2. no murmur, gallop, rubs. GI/Abdominal exam: Non-tender, Non-distended, no peritoneal signs. colostomy present Extremities exam: full ROM, no pedal edema, warm, pulses palpable in b/l lower extremities. no calf tenderness Neurological exam: CN II-XII intact, AO X3, no focal deficits. no pronater drift, facial droop, speech deficit Skin exam: No skin rash, ulcer, purpura or ecchymosis. - Assessment and Plan (1) Anxiety and depression Current Visit: No Status: Chronic (2) DVT prophylaxis Current Visit: No Status: Acute (3) Hypokalemia Current Visit: Yes Status: Acute (4) Dehydration Current Visit: Yes Status: Acute (5) Intractable vomiting with nausea Current Visit: Yes Status: Acute (6) Elevated troponin Current Visit: Yes Status: Acute (7) Mucinous adenocarcinoma Current Visit: Yes Status: Acute - Summary of Assessment and Plan Summary of Assessment and Plan: Intractable vomiting with nausea - likely related to recent chemotherapy. Dehydration - related to Vomiting - c/w IV NS with potassium at 125 cc - receive 60 meq K+ overnight. f/u BMP at 1 pm. - oral intake as tolerated - c/w IV antiemetics including ondansetron, phenargan, and metoclopramide Hypokalemia, hyponatremia - as above Elevated troponin - mildly elevated at 0.04. adynamic - without chest pain or shortness of breath - likely demand ischemia from dehydration and tachycardia. DVT prophylaxis - c/w sc Heparin Mucinous adenocarcinoma of appendix - Undergoing chemotherapy with last cycle given on 09/11/2018 - c/w home pain medications. - Time Spent with Patient Total time spent is greater than 50% in coordination of care (as documented) at patient's floor/unit and/or counseling patient: Internal Medicine: Result - Labs CBC & Chem 7: 09/16/18 00:53 09/16/18 05:50 Labs: Short CBC 09/15/18 09/16/18 Range/Units 20:20 00:53 WBC 4.6 D 4.7 (4.3-11.1) K/mcL Hgb 15.6 H D 14.0 D (11.5-15.4) g/dL Hct 45.2 H 41.0 (35.3-44.9) % Plt Count 154 143 (140-400) K/mcL Neutrophils # 3.9 4.0 (1.6-8.9) K/mcL BMP 09/15/18 09/16/18 09/16/18 20:20 02:40 05:50 Sodium 135 L 138 138 Potassium 2.5 L* 2.9 L 2.8 L Chloride 86 L 94 L 93 L Carbon Dioxide 34 H 32 H 32 H BUN 37 H 31 H 30 H Creatinine 1.13 0.92 0.96 Glucose 152 H 117 H 124 H Calcium 9.9 9.2 9.3 Cardiac Enzymes 09/15/18 09/16/18 09/16/18 Range/Units 20:20 00:53 05:50 Troponin I 0.04 H* 0.05 H* 0.05 H* (< 0.04) ng/mL Liver Function 09/16/18 Range/Units 02:40 Total Bilirubin 0.6 (0.3-1.0) mg/dL Direct Bilirubin 0.2 (0.0-0.2) mg/dL AST 18 (13-39) Units/L ALT 6 L (7-52) Units/L Alkaline Phosphatase 110 H (34-104) Units/L Albumin 3.3 L (3.5-5.7) g/dL - ABG Interpretation ABG results: PT/INR, D-dimer PT 13.1 Seconds (9.4-12.1) H 09/16/18 05:50 - Impressions Impressions Chest X-Ray 09/15/18 19:57 IMPRESSION: No acute cardiopulmonary disease. Persistent moderate partially loculated left pleural effusion with basilar volume loss. D/ / Sean Jimenez MD / Sean Jimenez MD Interpreting Provider: Sean Jimenez MD Consult Discharge Plan - Plan Referrals: NONE,PCP [Primary Care Provider] - (5) Intractable vomiting with nausea Qualifiers: Vomiting type: unspecified Qualified Code(s): R11.2 - Nausea with vomiting, unspecified
[2018-09-16] MEDS ORDERED: Isovue-370 500 ML BOTTLE IVP ONE (12:16)
[2018-09-16] MEDS: *HR* Promethazine 25 MG/ML VIAL IVP PRN ×4 (12:25→20:18)
[2018-09-16] MEDS: Gabapentin 300 MG CAPSULE PO SCH ×3 (14:59→20:34)
--- NOTE | 2018-09-16 15:18 | General Surgery Consult Note ---
Date of Encounter: 09/16/18 Time of Encounter: 15:14 Assessment and Plan (1) Dysphagia Current Visit: Yes Status: Acute discussed with patient CT scan results. She states she thinks she is able to handle her secretions but is not sure. She continues to have emesis fluid. Discussed could be esophagitis causing edema or progression of cancer causing obstruction. Discussed egd for further evaluation, risks and benefits discussed and she wishes to proceed, will plan with anesthesia npo ivf hydration hold po meds - unsure pt can tolerate protonix bid Qualifiers: Dysphagia type: esophageal phase Qualified Code(s): R13.10 - Dysphagia, unspecified (2) Metastatic cancer Current Visit: Yes Status: Chronic (3) Protein calorie malnutrition Current Visit: Yes Status: Chronic Qualifiers: Protein-calorie malnutrition severity: severe Qualified Code(s): E43 - Unspecified severe protein-calorie malnutrition History of Present Illness Consult date: 09/16/18 Reason for consult: endoscopy Requesting physician: Nura Angeles History of present illness: Patient is a 52 yo female that was diagnosed with mucinous adenocarcinoma GI tract, likely appendix, with signet ring features and extracellular mucin Metastatic, stage IV-multiple peritoneal deposits with largest near cecum, liver deposits, malignant pleural effusion with drain placed. Patient initially started seeking treatment for reflux. She states she takes medication for this but cannot tell me what. She has been receiving palliative chemotherapy: Oxaliplatin 85 mg/m IV day 1, 5-FU 200 mg/m IV day 1 bolus, Avastin 5 mg per KG day 1. Begninning Cycle 1 on 07/26/18. Cycle 3 09/11/2018. Three days ago she had acute onset dysphagia to solids and liquids. She has not been able to keep any food or liquid down and came to the hospital and was admitted yesterday. She had CT abdomen and pelvis today with concerns for bowel obstruction as her cause of N/V but CT showed fluid filled wall thickened esophagus. Partially fluid filled stomach. No small bowel dilation. "The visualized esophagus is distended with fluid and there is diffuse wallthickening. This may be due to partial obstructing process at the GE junction or reflux. Underlying esophagitis may also be present. No evidence for bowel obstruction. Interval loop ileostomy. Large volume ascites with diffuse peritoneal thickening, compatible with chronic peritonitis or carcinomatosis. Moderate size left pleural effusion with pleural catheter and small amount of extrapleural gas. Pleural thickening is noted compatible with malignant involvement. Associated left lower lobe atelectasis or infiltrate appears more prominent in the interval." Past Med Surg Social Fam HX - Past Medical History Source: patient Medical history: arthritis, cancer (metastatic mucinous adenocarcinoma), GERD Additional medical history: pelvic pain, lower back pain with lower limb dysesthesias, endometriosis, adenomyosis Psychiatric history: anxiety, depression - Past Surgical History Surgical History: hysterectomy Additional surgical history: Abdominal surgery - tubal ligation - iliostomy - Social History Smoking Status: Current every day smoker Smokeless Tobacco Status: No Alcohol use: none Drug use: none - Family History Brother Hx Family Cancer: Yes (prostate) Sister Hx Family Endocrine Disorder: Yes (DM2) Medications and Allergies Gabapentin [Neurontin] 600 mg PO TID 05/11/18 [History] OxyCODONE Immed Rel [Roxicodone 15 MG] 15 mg PO Q8HR PRN 05/11/18 [History] Quetiapine Fumarate [Seroquel] 50 mg PO HS PRN 05/11/18 [History] Ondansetron HCl [Zofran] 4 mg PO Q8HR PRN 30 Days #90 tab 07/17/18 [Rx] Lidocaine/Prilocaine [Emla] 1 appl TP AD PRN #30 gm 07/25/18 [Rx] Magic Mouthwash [Magic Mouthwash BLM] 10 ml PO QID PRN #240 ml 07/25/18 [Rx] Prochlorperazine Maleate [Compazine] 10 mg PO Q6HR PRN #60 tablet 07/25/18 [Rx] Promethazine [Phenergan] 12.5 mg RC Q6HR PRN #60 supp.rect 08/01/18 [Rx] Esomeprazole Magnesium [Nexium] 20 mg PO DAILY #30 capsule. 08/06/18 [Rx] diazePAM [Valium] 5 mg PO BID 30 Days #60 tablet 08/29/18 [Rx] Famotidine [Pepcid] 20 mg PO BID #60 tablet 08/31/18 [Rx] Sucralfate [Carafate] 1 gm PO Q6H #120 tablet 09/06/18 [Rx] Diphenoxylate/Atropine [Lomotil 2.5 mg/0.025 mg] 1 tab PO Q6H PRN 15 Days #60 tablet 09/11/18 [Rx] Albuterol Sulfate [Albuterol Inhaler] 2 puff PO Q6H PRN 09/16/18 [History] Allergy/AdvReac Type Severity Reaction Status Date / Time steroid shot Allergy See Uncoded 09/11/18 09:30 Comments Review of Systems All systems PM: reviewed and no additional remarkable complaints except as stated All systems PM: The remainder of the systems were reviewed and are negative General Surgery Exam Initial Vital Signs Temp Pulse Resp BP Pulse Ox 97.4 F L 130 18 105/79 92 09/15/18 19:44 09/15/18 19:44 09/15/18 19:44 09/15/18 19:44 09/15/18 19:44 - General physical appearance moderate distress, moderate pain, cachectic, chronically ill - Eyes PERRL, normal ocular movement - ENT normal mucosa, normocephalic - Neck trachea midline - Respiratory normal expansion, other (left pleural tube) - Cardiovascular Cardiovascular exam: Present: RRR - Integumentary Integumentary general surgery: Present: warm and dry - Neurologic Present: CN 2-12 grossly intact - Musculoskeletal Present: normal posture - Psychiatric Psychiatric general surgery: Present: A&Ox3 Exam Initial Vital Signs Temp Pulse Resp BP Pulse Ox 97.4 F L 130 18 105/79 92 09/15/18 19:44 09/15/18 19:44 09/15/18 19:44 09/15/18 19:44 09/15/18 19:44 Results - Labs 09/16/18 00:53 09/16/18 13:00 Abnormal lab results RDW 17.0 % (11.5-14.5) H 09/16/18 00:53 MPV 12.5 fL (9.4-12.4) H 09/16/18 00:53 Lymphocytes # 0.5 K/mcL (0.6-4.6) L 09/16/18 00:53 PT 13.1 Seconds (9.4-12.1) H 09/16/18 05:50 Heparin Anti-Xa, Unfract 0.00 IU/mL (0.30-0.70) L 09/16/18 05:50 Potassium 2.8 mEq/L (3.5-5.1) L 09/16/18 05:50 Chloride 93 mEq/L (98-107) L 09/16/18 05:50 Carbon Dioxide 32 mEq/L (23-29) H 09/16/18 05:50 BUN 30 mg/dL (6-20) H 09/16/18 05:50 BUN/Creatinine Ratio 31 (6-26) H 09/16/18 05:50 Glucose 124 mg/dL (70-105) H 09/16/18 05:50 ALT 6 Units/L (7-52) L 09/16/18 02:40 Alkaline Phosphatase 110 Units/L (34-104) H 09/16/18 02:40 Troponin I 0.05 ng/mL (< 0.04) H* 09/16/18 05:50 Albumin 3.3 g/dL (3.5-5.7) L 09/16/18 02:40 Albumin/Globulin Ratio 1.0 (1.1-2.2) L 09/16/18 02:40 Diabetes panel 09/15/18 09/16/18 09/16/18 Range/Units 20:20 02:40 05:50 Sodium 135 L 138 138 (136-145) mEq/L Potassium 2.5 L* 2.9 L 2.8 L (3.5-5.1) mEq/L Chloride 86 L 94 L 93 L (98-107) mEq/L Carbon Dioxide 34 H 32 H 32 H (23-29) mEq/L BUN 37 H 31 H 30 H (6-20) mg/dL Creatinine 1.13 0.92 0.96 (0.60-1.20) mg/dL Glucose 152 H 117 H 124 H (70-105) mg/dL Calcium 9.9 9.2 9.3 (8.6-10.3) mg/dL AST 18 (13-39) Units/L ALT 6 L (7-52) Units/L Alkaline Phosphatase 110 H (34-104) Units/L Albumin 3.3 L (3.5-5.7) g/dL Calcium panel 09/15/18 09/16/18 09/16/18 Range/Units 20:20 02:40 05:50 Calcium 9.9 9.2 9.3 (8.6-10.3) mg/dL Albumin 3.3 L (3.5-5.7) g/dL Pituitary panel 09/15/18 09/16/18 09/16/18 Range/Units 20:20 02:40 05:50 Sodium 135 L 138 138 (136-145) mEq/L Potassium 2.5 L* 2.9 L 2.8 L (3.5-5.1) mEq/L Chloride 86 L 94 L 93 L (98-107) mEq/L Carbon Dioxide 34 H 32 H 32 H (23-29) mEq/L BUN 37 H 31 H 30 H (6-20) mg/dL Creatinine 1.13 0.92 0.96 (0.60-1.20) mg/dL Glucose 152 H 117 H 124 H (70-105) mg/dL Calcium 9.9 9.2 9.3 (8.6-10.3) mg/dL Adrenal panel 09/15/18 09/16/18 09/16/18 Range/Units 20:20 02:40 05:50 Sodium 135 L 138 138 (136-145) mEq/L Potassium 2.5 L* 2.9 L 2.8 L (3.5-5.1) mEq/L Chloride 86 L 94 L 93 L (98-107) mEq/L Carbon Dioxide 34 H 32 H 32 H (23-29) mEq/L BUN 37 H 31 H 30 H (6-20) mg/dL Creatinine 1.13 0.92 0.96 (0.60-1.20) mg/dL Glucose 152 H 117 H 124 H (70-105) mg/dL Calcium 9.9 9.2 9.3 (8.6-10.3) mg/dL Total Bilirubin 0.6 (0.3-1.0) mg/dL AST 18 (13-39) Units/L ALT 6 L (7-52) Units/L Alkaline Phosphatase 110 H (34-104) Units/L Albumin 3.3 L (3.5-5.7) g/dL All other labs normal. - Imaging CT scan - abdomen: report reviewed, image reviewed CT scan - pelvis: report reviewed, image reviewed Consult Discharge Plan - Plan Referrals: NONE,PCP [Primary Care Provider] -
--- NOTE | 2018-09-16 15:23 | Anesthesia Evaluation PreOp ---
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 Lap.) : No Alcohol Use: none Drug use: none Medications and Allergies RX: Gabapentin [Neurontin] 600 mg PO TID 05/11/18 [History] RX: OxyCODONE Immed Rel [Roxicodone 15 MG] 15 mg PO Q8HR PRN 05/11/18 [History] RX: Quetiapine Fumarate [Seroquel] 50 mg PO HS PRN 05/11/18 [History] Ondansetron HCl [Zofran] 4 mg PO Q8HR PRN 30 Days #90 tab 07/17/18 [Rx] Lidocaine/Prilocaine [Emla] 1 appl TP AD PRN #30 gm 07/25/18 [Rx] Prochlorperazine Maleate [Compazine] 10 mg PO Q6HR PRN #60 tablet 07/25/18 [Rx] RX: Magic Mouthwash [Magic Mouthwash BLM] 10 ml PO QID PRN #240 ml 07/25/18 [Rx] Promethazine [Phenergan] 12.5 mg RC Q6HR PRN #60 supp.rect 08/01/18 [Rx] RX: Esomeprazole Magnesium [Nexium] 20 mg PO DAILY #30 capsule.dr 08/06/18 [Rx] RX: diazePAM [Valium] 5 mg PO BID 30 Days #60 tablet 08/29/18 [Rx] RX: Famotidine [Pepcid] 20 mg PO BID #60 tablet 08/31/18 [Rx] RX: Sucralfate [Carafate] 1 gm PO Q6H #120 tablet 09/06/18 [Rx] Diphenoxylate/Atropine [Lomotil 2.5 mg/0.025 mg] 1 tab PO Q6H PRN 15 Days #60 tablet 09/11/18 [Rx] RX: Albuterol Sulfate [Albuterol Inhaler] 2 puff PO Q6H PRN 09/16/18 [History] Allergy/AdvReac Type Severity Reaction Status Date / Time steroid shot Allergy See Uncoded 09/11/18 09:30 Comments - Meds/Allergy Pre-op Review Medications Reviewed: Yes Allergies Reviewed: Yes Beta Blockers on Current Med List: No Anesthesia Results - Labs 09/16/18 00:53 09/16/18 13:00 Laboratory Tests 09/16/18 09/16/18 05:50 13:00 Glucose 171 H Troponin I 0.05 H* - Imaging EKG: report reviewed (SINUS TACHYCARDIA NONSPECIFIC T-WAVE ABNORMALITY ABNORMAL RHYTHM ECG) Anesthesia Exam O2 Sat Height 1.7 m Weight 62.142 kg O2 Sat by Pulse Oximetry 90 O2 Sat by Pulse Oximetry 90 O2 Sat by Pulse Oximetry 98 O2 Sat by Pulse Oximetry 97 O2 Sat by Pulse Oximetry 97 O2 Sat by Pulse Oximetry 95 O2 Sat by Pulse Oximetry 97 O2 Sat by Pulse Oximetry 96 O2 Sat by Pulse Oximetry 95 O2 Sat by Pulse Oximetry 95 O2 Sat by Pulse Oximetry 92 Vital Signs Temp Pulse Resp BP Pulse Ox 97.4 F L 130 18 105/79 92 09/15/18 19:44 09/15/18 19:44 09/15/18 19:44 09/15/18 19:44 09/15/18 19:44 - HEENT Pupil (Motor): Pupils equal, EOMI Mallampati: II Teeth: Poor dentition Oral Opening: Greater than 3 - WINDOW AND DOOR INSTALLER LOC: Oriented WINDOW AND DOOR INSTALLER Motor: Normal RUE, Normal LUE, Normal RLE, Normal LLE, Normal Face WINDOW AND DOOR INSTALLER Sensory: Normal: RUE, LUE, RLE, LLE, Face - Cardiac Rhythm: Regular Murmur: None JVD: No Carotid Bruit: No - Pulmonary Breath Sounds: bilateral Clear Respiratory Effort: Symmetrical Anesthesia Assess/Plan ASA Score: 4, E Level of consciousness: Cooperative Anesthetic Plan: General Autologous Blood: Yes Monitoring Plan: Standard Monitors Recovery Plan: PACU
[2018-09-16] MEDS ORDERED: *HR* FentaNYL (PF) 100 MCG/2 ML VIAL IVP PRN (15:26)
[2018-09-16 15:28] LABS: BUN/Creatinine Ratio 29 (6-26); Blood Urea Nitrogen 30 mg/dL (6-20); Calcium 9.3 mg/dL (8.6-10.3); Carbon Dioxide 32 mEq/L (23-29); Chloride 93 mEq/L (98-107); Glucose 171 mg/dL (70-105); Osmolality,Calculated 292 (280-300); Potassium 2.7 mEq/L (3.5-5.1); Sodium 136 mEq/L (136-145); eGFR For Non-African Americans 56 (> 60)
[2018-09-16] MEDS ORDERED: Simethicone 40 MG/0.6 ML MLS IR ONE (15:34)
[2018-09-16] MEDS ORDERED: diazePAM 10 MG/2 ML SYRINGE IVP PRN (15:37)
[2018-09-16] MEDS ORDERED: *HR* FentaNYL (PF) 100 MCG/2 ML VIAL ONE (15:45)
[2018-09-16] MEDS ORDERED: *HR* Propofol 200 MG/20 ML VIAL IVP ONE (15:48)
[2018-09-16] MEDS ORDERED: *HR* Succinylcholine 200 MG/10 ML VIAL IVP ONE (15:49)
[2018-09-16] MEDS ORDERED: Ondansetron 4 MG/2 ML VIAL ONE (15:49)
[2018-09-16] MEDS ORDERED: Lidocaine -MPF 2% 2 ML VIAL ONE (15:49)
[2018-09-16] MEDS ORDERED: *HR* Metoprolol 5 MG/5 ML VIAL IVP ONE (17:23)
[2018-09-16] MEDS ORDERED: *HR* OxyCODONE Immed Rel 5 MG TABLET PO PRN (17:31)
[2018-09-16] MEDS ORDERED: Acetaminophen IV 1,000 MG/100 ML INFUS..BTL IVPB ONE (17:31)
[2018-09-16] MEDS ORDERED: *HR* Labetalol 20 MG/4 ML SYRINGE IVP PRN (17:31)
[2018-09-16] MEDS ORDERED: Ketorolac 30 MG/ML VIAL IVP ONE (17:31)
[2018-09-16] MEDS ORDERED: Ondansetron 4 MG/2 ML VIAL IVP ONE (17:31)
--- NOTE | 2018-09-16 17:48 | Event Note ---
Date of Encounter: 09/16/18 Time of Encounter: 17:47 patient with severe esophagitis, moderate gastritis biopsies for H pylori performed recommend: protonix bid, carafate liquid QID po x 1 month nystatin swish and swallow x 1 week ok ice chips tonight and po meds
--- NOTE | 2018-09-16 18:13 | Anesthesia Evaluation Post Op ---
Date of Encounter: 09/16/18 Time of Encounter: 18:13 - Vital Signs Vital Signs: Vital Signs/O2 Sat, Most Current Temp Pulse Resp BP Pulse Ox 99.8 F H 96 18 113/87 95 09/16/18 17:41 09/16/18 18:01 09/16/18 18:01 09/16/18 18:01 09/16/18 18:01 - Lungs Lungs: Clear Ascult./Percussion - Airway Airway: Non-obstructed - Cardiovascular Regular Rate - Mental Status Mental Status: Alert & Oriented, Answers Appropriately - Pain Pain Scale: 0 Pain Scale used: Numeric (1 - 10) - Hydration Hydration: Ice chips, Has not voided - Discharge PostOp Status: Transfer Patient to floor
[2018-09-16] MEDS: Pantoprazole 40 MG VIAL IVP SCH (18:53)
[2018-09-16] MEDS: Nystatin SUSP 5 ML UD.LIQ PO SCH ×2 (20:29→20:34)
[2018-09-16 23:20] LABS: Basophils % 0.1 %; Hematocrit 41.8 % (35.3-44.9); Hemoglobin 14.2 g/dL (11.5-15.4); Immature Granulocytes % 0.4 % (0-4); Lymphocytes # 0.9 K/mcL (0.6-4.6); Lymphocytes % 10.9 %; Mean Corpuscular Hemoglobin 28.6 pg (28.0-33.3); Mean Corpuscular Volume 84.3 fL (83.0-100.0); Mean Platelet Volume 11.4 fL (9.4-12.4); Monocytes # 0.3 K/mcL (0.0-1.3); Monocytes % 3.5 %; Neutrophils # 6.8 K/mcL (1.6-8.9); Platelet Count 143 K/mcL (140-400); Red Blood Count 4.96 M/mcL (3.82-4.97); Red Cell Distribution Width 17.2 % (11.5-14.5); Segmented Neutrophils % 85.1 %
[2018-09-16 23:38] LABS: Albumin 3.3 g/dL (3.5-5.7); Bilirubin,Total 0.9 mg/dL (0.3-1.0); Calcium 8.9 mg/dL (8.6-10.3); Globulin 3.2 g/dL (2.4-3.5); Potassium 3.1 mEq/L (3.5-5.1); Total Protein 6.5 g/dL (6.4-8.9)
[2018-09-17] MEDS: *HR* Promethazine 25 MG/ML VIAL IVP PRN (03:07)
[2018-09-17] MEDS: 0.9 % Sodium Chloride w KCl 40 MEQ/1,000 ML MLS IVC SCH (04:12)
[2018-09-17] MEDS ORDERED: 0.9 % Sodium Chloride w KCl 40 MEQ/1,000 ML MLS IVC SCH (04:15)
[2018-09-17] MEDS: Pantoprazole 40 MG VIAL IVP SCH (04:39)
[2018-09-17] MEDS: *HR* Heparin 5,000 UNIT/ML VIAL SQ SCH (04:39)
--- NOTE | 2018-09-17 05:14 | Event Note ---
Date of Encounter: 09/16/18 Time of Encounter: 22:40 Alerted by pts. nurse SYED Roberts that the patient was becoming confused and was found walking in the [place] asking for a place to sit. Patient disconnected or a port earlier and has been pulling at tubing asking the nurse to "take this off". These are new sx for the pt. I ordered stat labs including a lactic acid and ammonia level. BG was 137. K 3.1 (previously 2.7 and pt. has been receiving K supplementation). Chloride 96. Creatinine 1.21 GFR 47 (down from 56). I went to see patient immediately who appeared confused and speech was slightly slurred. Examined pt. and performed neuro checks which showed no deficits in UEs or LEs, no pronator drift, and no other deficits w/exception of slurred speech. Stat CT of the head/brain ordered which showed no acute intracranial abnormality and no findings diagnostic of acute infarct. However if neurologic symptoms continue consider MRI. Pts. sx did not resolve, so stat MRI ordered. I spoke w/Dr. Sam Sessions at [facility] regarding calling in [facility] to do stat MRI who concurred. Pts. MRI showed no acute stroke, intracranial hemorrhage, or mass effect. Stat urine culture ordered to r/o UTI. Improvement of potassium level unlikely for neuropsychiatric differential explanation of pts. current confusion, however it is a possibility. Pts. troponins have been slightly elevated at 0.04, 0.05, and 0.05. Pt. admitted w/N/V that began approx 3-4 days ago. Pt. is undergoing chemotherapy for mucinous adenocarcinoma. Pt. finished cycle #3 of therapy on 09/11/18. Sitter ordered to help keep pt. calm. Nurse instructed to continue monitoring the pt. very closely and alert me immediately of any mentation changes or adverse changes. Repeat K level ordered for 09:00.
[2018-09-17 06:43] LABS: Calcium 9.2 mg/dL (8.6-10.3); Potassium 3.2 mEq/L (3.5-5.1)
[2018-09-17] MEDS ORDERED: Promethazine 25 MG in 0.9 % Sodium Chloride 50 ML IVPB PRN (08:52)
[2018-09-17] MEDS: Gabapentin 300 MG CAPSULE PO SCH (09:30)
[2018-09-17] MEDS: Nystatin SUSP 5 ML UD.LIQ PO SCH ×2 (09:31→12:08)
[2018-09-17] MEDS: *HR* OxyCODONE Immed Rel 15 MG TABLET PO PRN (09:34)
[2018-09-17 11:24] VITALS: BP 112/79
--- NOTE | 2018-09-17 13:08 | Discharge Summary ---
- NOTES TO OUTPATIENT PROVIDER Notes to Outpatient Provider: Patient would need renal function testing and potassium testing with BMP in 2-3 days. Orders not resulted at time of discharge: Pending orders 09/16/18 16:00 H. pylori Urease Culture [RM] Routine 09/16/18 17:34 Surgical Pathology [PTH] Routine 09/17/18 04:31 Culture,Urine [RM] Stat 09/18/18 04:00 BMP [Basic Metabolic Panel] AM 0400 CBC [Complete Blood Count] [HEME] AM 0400 09/19/18 04:00 CBC [Complete Blood Count] [HEME] AM 0400 Date of Encounter: 09/17/18 Time of Encounter: 13:03 - Discharge Diagnosis (1) Anxiety and depression Priority: Secondary Status: Chronic (2) DVT prophylaxis Priority: Secondary Status: Acute (3) Hypokalemia Priority: Primary Status: Acute (4) Dehydration Priority: Primary Status: Acute (5) Intractable vomiting with nausea Priority: Primary Status: Acute Qualifiers: Vomiting type: unspecified Qualified Code(s): R11.2 - Nausea with vomiting, unspecified (6) Elevated troponin Priority: Primary Status: Acute (7) Mucinous adenocarcinoma Priority: Secondary Status: Acute Hospital course: Ms. Warren is a 52 year old female with history of dizziness and adenocarcinoma undergoing chemotherapy who had 30 seconds of the chemotherapy came in with intractable nausea vomiting for 3-4 days. Patient was found to have significant dehydration and hypokalemia from vomiting. Also had mildly elevated troponin likely related to demand ischemia and tachycardia. Patient had a CAT scan to evaluate for bowel obstruction which showed a distended esophagus with fluid filled and possible partial obstruction the GE junction reflux, large volume ascites with diffuse thickening consistent with carcinomatosis, moderate left- sided pleural effusion with Pleurx catheter, gas within the vagina more prominent with possibility of fistula however not do that he demonstrated. P atient was seen by surgery who performed endoscopy which showed severe esophagitis and moderate gastritis. Patient did develop some confusion overnight later that day for which CT and MRI was done which was unremarkable. Patient was put on ice chips, protonix, carafate and nystatin. Patient felt well next day and tolerated some full liquid diet. Patient insisted she wanted to go home. She stayed to get potassium IV. She alert and oriented. Discussed with patient to stay hydrated and be complaint with medication. Says she has carafate, protonix at home. nystatin prescription was sent. Discharge discussed with: patient, family, nurse, social work - Time Spent with Patient Total time spent providing and/or coordinating discharge services: Greater than 30 minutes (38) - Discharge Medications Prescriptions: Nystatin [Nystatin Suspension] 500,000 units PO QID 7 Days #120 ml Pantoprazole Sodium 40 mg PO BID 15 Days #30 tablet. Home Medications: Gabapentin [Neurontin] 600 mg PO TID 05/11/18 [History] OxyCODONE Immed Rel [Roxicodone 15 MG] 15 mg PO Q8HR PRN 05/11/18 [History] Quetiapine Fumarate [Seroquel] 50 mg PO HS 05/11/18 [History] Ondansetron HCl [Zofran] 4 mg PO Q8HR PRN 30 Days #90 tab 07/17/18 [Rx] Lidocaine/Prilocaine [Emla] 1 appl TP AD PRN #30 gm 07/25/18 [Rx] Magic Mouthwash [Magic Mouthwash BLM] 10 ml PO QID PRN #240 ml 07/25/18 [Rx] Prochlorperazine Maleate [Compazine] 10 mg PO Q6HR PRN #60 tablet 07/25/18 [Rx] Promethazine [Phenergan] 12.5 mg RC Q6HR PRN #60 supp.rect 08/01/18 [Rx] diazePAM [Valium] 5 mg PO BID 30 Days #60 tablet 08/29/18 [Rx] Sucralfate [Carafate] 1 gm PO Q6H #120 tablet 09/06/18 [Rx] Diphenoxylate/Atropine [Lomotil 2.5 mg/0.025 mg] 1 tab PO Q6H PRN 15 Days #60 tablet 09/11/18 [Rx] Albuterol Sulfate [Albuterol Inhaler] 2 puff PO Q6H PRN 09/16/18 [History] Nystatin [Nystatin Suspension] 500,000 units PO QID 7 Days #120 ml 09/17/18 [Rx] Pantoprazole Sodium 40 mg PO BID 15 Days #30 tablet. 09/17/18 [Rx] Allergies/Adverse Reactions: Allergy/AdvReac Type Severity Reaction Status Date / Time steroid shot Allergy See Uncoded 09/11/18 09:30 Comments Date of admission: 09/16/18 14:27 Primary care physician: PCP NONE Consults: 09/15/18 22:51 Consult to Nutrition [CONS] Routine Comment: Consulting Provider: NUTRITION Reason for Dietary Consult: MST Score 09/16/18 14:21 Consult to Surgery [CONS] Routine Consulting Provider: [facility] Reason for Consult: Nause/vomiting. partial obstuction at GE junction Call Completed: Yes Discharging clinician: Nura Angeles - Constitutional Vitals: Temp Pulse Resp BP Pulse Ox 98.4 F 108 17 112/79 92 09/17/18 11:22 09/17/18 11:22 09/17/18 11:22 09/17/18 11:22 09/17/18 11:22 Exam: General: In no acute distress. Conversant. thin build. frail Respiratory exam: CTAB. no accessory muscle use, rales, rhonchi, wheezes. Pleurex catheter in place. Cardiovascular exam: tachycardic, +S1, +S2. no murmur, gallop, rubs. GI/Abdominal exam: Non-tender, Non-distended, no peritoneal signs. colostomy present Extremities exam: full ROM, no pedal edema, warm, pulses palpable in b/l lower extremities. no calf tenderness Neurological exam: CN II-XII intact, AO X3, no focal deficits. - Patient Status Disposition: Home, Self-Care Condition: Fair - Discharge Instructions Follow Up With: NONE,PCP [Primary Care Provider] - - Diet and Activity Diet: advance to your usual diet
--- NOTE | 2018-09-17 17:34 | Electrocardiograph Report ---
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
--- NOTE | 2018-09-17 17:48 | Electrocardiograph Report ---
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
--- NOTE | 2018-09-18 17:26 | Electrocardiograph Report ---
[place] [address] Test Date: 2018-09-17 Pat Name: Sangeetha Warren Department: 112 Room: 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
== END 2018-09-17 14:10 | disposition home or self-care (01) | DRG 422 ==
LOC: EMEROOARM 19:42 → 2ANU 19:42 → SUATTDRO 21:55 → 2ANU 22:12
PROVIDERS: ADMIT Internal Medicine; ATTEND Internal Medicine
PROC: ENDOEBX (2018-09-16 16:10)